=== PATIENT | female | born 1985 | race African-American/Black ===

== ENCOUNTER 2016-07-14 15:21 | Emergency (ER) | payer MEDICAID ==
[2016-07-14] MEDS ORDERED: ACETAMINOPHEN 325 MG TABLET PO ONE (15:26)
--- NOTE | 2016-07-14 15:27 | ER Document Report ---
ED Medical Screen (RME) - General Stated Complaint: TOR INJURY Mode of Arrival: Ambulatory Information source: Patient Notes: Patient presents to the emergency department with complaints of right third digit toe injury. She reports she was playing around with her fianc and hurt it somehow. She's not sure how. I have greeted and performed a rapid initial assessment of this patient. A comprehensive ED assessment and evaluation of the patient, analysis of test results and completion of the medical decision making process will be conducted by additional ED providers.
[2016-07-14 15:28] VITALS: BP 125/70
--- NOTE | 2016-07-14 16:03 | ER Document Report ---
HPI - HPI Patient complains to provider of: right toe pain Onset: Just prior to arrival Onset/Duration: Sudden Severity: Severe Pain Level: 4 Context: pt presents to the ED with c/o right foot 3rd digit pain. Reports she was goofing around with her fiance and hurt the toe. She is not sure what happened, possibly kicked the back of his shoe. Associated Symptoms: None Exacerbated by: Movement, Walking Relieved by: Denies Similar symptoms previously: No Recently seen / treated by doctor: No - DERM Skin Color: Normal Past Medical History - General Information source: Patient - Social History Smoking Status: Current Every Day Smoker Chew tobacco use (# tins/day): No Frequency of alcohol use: Social Drug Abuse: None Lives with: Family Family History: None Renal/ Medical History: Denies: Hx Peritoneal Dialysis Traumatic Medical History: Reports: Hx Fractures Surgical Hx: Negative Vertical Provider Document - CONSTITUTIONAL Agree With Documented VS: Yes Exam Limitations: No Limitations General Appearance: WD/WN, No Apparent Distress - INFECTION CONTROL TRAVEL OUTSIDE OF THE [place] IN LAST 30 DAYS: No - HEENT HEENT: Atraumatic, Normocephalic - NECK Neck: Supple - RESPIRATORY Respiratory: Breath Sounds Normal O2 Sat by Pulse Oximetry: 100 - CARDIOVASCULAR Cardiovascular: Regular Rate - MUSCULOSKELETAL/EXTREMETIES Musculoskeletal/Extremeties: MAEW, Tender - right foot 3rd digit ttp, brisk cap refill , no obvious deformity - NEURO Level of Consciousness: Awake, Alert, Appropriate Motor/Sensory: No Motor Deficit - DERM Integumentary: Warm, Dry Course - Vital Signs Vital signs: Temp Pulse Resp BP Pulse Ox 98.2 F 80 18 125/70 100 07/14/16 15:27 07/14/16 15:27 07/14/16 15:27 07/14/16 15:27 07/14/16 15:27 - Diagnostic Test Radiology reviewed: Image reviewed, Reports reviewed - IMPRESSION: Spiral fracture proximal phalanx 3rd digit Procedures - Immobilization Right 3rd digit Pre-Proc Neuro Vasc Exam: Normal Immobilizer type: Post-op shoe, Other - rosa tape Performed by: Other - academic administrator Discharge - Discharge Clinical Impression: spiral fracture right foot third digit, Elevated blood pressure reading Toe injury Qualifiers: Encounter type: initial encounter Condition: Stable Disposition: HOME, SELF-CARE Instructions: Fracture ([facility]), Rosa Taping (toes) ([facility]), Use of Over-The- Counter Ibuprofen ([facility]), Post-Op Shoe ([facility]) Additional Instructions: *You have been evaluated for right third digit spiral fracture, elevated blood pressure reading *Maintain the rosa tape and post op shoe for comfort *Rest/Ice/Elevate your toe *Follow up with orthopedics within one week -call for an appointment *Take ibuprofen for comfort *Return to ED for worsening condition, changes, needs Monitor your blood pressure. Your blood pressure was elevated today. This may be because you were anxious, in pain or because you need medication. It is important to follow up with your primary care provider for full evaluation. Forms: Elevated Blood Pressure Referrals: PUMA MIMS MD [Primary Care Provider] - Follow up as needed
== END 2016-07-14 16:12 | disposition home or self-care (01) ==
LOC: ER 15:21
DX: S92.901A Unspecified fracture of right foot, initial encounter for closed fracture (principal); R03.0 Elevated blood-pressure reading, without diagnosis of hypertension; M79.674 Pain in right toe(s); F17.200 Nicotine dependence, unspecified, uncomplicated; X58.XXXA Exposure to other specified factors, initial encounter
CPT/HCPCS: 99283; 73630; J3490

== ENCOUNTER 2017-01-11 19:55 | Emergency (ER) | payer MEDICAID ==
[2017-01-11 20:26] LABS: APPEARANCE,URINE CLEAR; BILIRUBIN,URINE NEGATIVE (NEGATIVE); GLUCOSE, URINE NEGATIVE (NEGATIVE); KETONES,URINE NEGATIVE (NEGATIVE); LEUKOCYTE ESTERASE,URINE NEGATIVE (NEGATIVE); NITRITE,URINE NEGATIVE (NEGATIVE); PROTEIN,URINE NEGATIVE (NEGATIVE); URINE SPECIFIC GRAVITY 1.004; UROBILINOGEN,URINE NEGATIVE mg/dL (<2.0)
[2017-01-11 20:41] LABS: URINE BARBITURATES SCREEN NEGATIVE; URINE METHADONE SCREEN NEGATIVE; URINE OPIATES LOW NEGATIVE; URINE PHENCYCLIDINE SCREEN NEGATIVE
[2017-01-11] MEDS ORDERED: DIAZEPAM 5 MG TABLET PO ONE (20:41)
[2017-01-11] MEDS ORDERED: DIAZEPAM INJ 10 MG/2 ML DISP.SYRIN IV ONE ×2 (20:45→23:43)
--- NOTE | 2017-01-11 20:51 | ER Document Report ---
ED General - General Chief Complaint: Overdose Stated Complaint: SUICIDAL IDEATION Time Seen by Provider: 01/11/17 20:15 Cannot obtain history due to: Uncooperative, Altered mental status Notes: Patient is a 31-year-old female with a known past medical history who presents after overdosing on Phenergan in a suicide attempt. Patient wrote a suicide note to her children stating that she was killing herself due to multiple issues and apologized. Had some arrival patient has received activated charcoal by EMS. She is agitated, incoherent and unable to provide an additional meaningful history. She is protecting her airway and otherwise appears in no acute distress TRAVEL OUTSIDE OF THE [place] IN LAST 30 DAYS: No - Related Data Allergies/Adverse Reactions: codeine Allergy (Verified 07/14/16 15:27) Past Medical History - General Information source: Emergency Med Personnel Cannot obtain history due to: Uncooperative, Altered mental status - Social History Smoking Status: Unknown if Ever Smoked Family History: Reviewed & Not Pertinent Renal/ Medical History: Denies: Hx Peritoneal Dialysis Traumatic Medical History: Reports: Hx Fractures Review of Systems - Review of Systems -: Yes ROS unobtainable due to patient's medical condition Physical Exam - Vital signs Vitals: Temp Pulse Resp BP Pulse Ox 98.2 F 95 16 138/90 H 99 01/11/17 20:03 01/11/17 20:03 01/11/17 20:03 01/11/17 20:03 01/11/17 20:03 Interpretation: Normal Notes: PHYSICAL EXAMINATION: GENERAL: Somewhat agitated but in no acute distress HEAD: Atraumatic, normocephalic. EYES: Pupils equal round and reactive to light, extraocular movements intact, sclera anicteric, conjunctiva are normal. ENT: nares patent, oropharynx clear without exudates. Moist mucous membranes. NECK: Normal range of motion, supple without lymphadenopathy LUNGS: Breath sounds clear to auscultation bilaterally and equal. No wheezes rales or rhonchi. HEART: Regular rate and rhythm without murmurs ABDOMEN: Soft, nontender, normoactive bowel sounds. No guarding, no rebound. No masses appreciated. EXTREMITIES: Normal range of motion, no pitting or edema. No cyanosis. NEUROLOGICAL: No focal neurological deficits. Moves all extremities spontaneously and on command. PSYCH: Agitated, confused, has difficulty forming appropriate thoughts. SKIN: Warm, Dry, normal turgor, no rashes or lesions noted. Course - Re-evaluation Re-evalutation: 01/11/17 20:50 Patient presents with suicidal ideation, somewhat disheveled, garbled thought process, unable to provide meaningful history. She apparently attempted overdose Phenergan prior to arrival taking a total of 30 25 mg tablets. She did receive activated charcoal prior to arrival. She denies any additional coingestions. Will proceed with laboratory evaluation, IVC placement, and reassessment. She denies any acute medical complaints. She does arrive with a suicide note. 01/12/17 01:23 Medical screening labs remain unremarkable. Patient remained somewhat agitated and difficult to redirect. Vitals otherwise within normal limits. She is medically cleared pending psychiatric evaluation - Vital Signs Vital signs: Temp Pulse Resp BP Pulse Ox 98.2 F 95 14 138/90 H 99 01/11/17 20:03 01/11/17 20:03 01/11/17 20:45 01/11/17 20:03 01/11/17 20:03 - Laboratory Result Diagrams: 01/11/17 20:36 01/11/17 20:36 Laboratory results interpreted by me: 01/11/17 01/11/17 20:36 20:36 Hgb 11.3 L Hct 33.4 L RDW 16.5 H Chloride 108 H Salicylates < 1.0 L Acetaminophen < 10 L - EKG Interpretation by Me Additional EKG results interpreted by me: 01/12/17 01:23 Poor quality EKG. Normal sinus rhythm. No ST elevations or depressions. Rate is 84. QTC is 436 Discharge - Discharge Clinical Impression: Suicide attempt Overdose Qualifiers: Encounter type: initial encounter Injury intent: intentional self-harm Qualified Code(s): T50.902A - Poisoning by unspecified drugs, medicaments and biological substances, intentional self-harm, initial encounter Altered mental status Qualifiers: Altered mental status type: disorientation Qualified Code(s): R41.0 - Disorientation, unspecified Condition: Fair Disposition: PSYCH HOSP/UNIT
[2017-01-11 21:03] LABS: ALANINE AMINOTRANSFERASE 25 U/L (9-52); ALBUMIN 4.6 g/dL (3.5-5.0); ALKALINE PHOSPHATASE 54 U/L (38-126); ANION GAP 13 (5-19); ASPARTATE AMINO TRANSFERASE 21 U/L (14-36); BILIRUBIN,DIRECT 0.4 mg/dL (0.0-0.4); BILIRUBIN,TOTAL 0.4 mg/dL (0.2-1.3); BLOOD UREA NITROGEN 8 mg/dL (7-20); CALCIUM 10.2 mg/dL (8.4-10.2); CARBON DIOXIDE 22 mmol/L (22-30); CHLORIDE 108 mmol/L (98-107); CREATININE RESULT 0.88 mg/dL (0.52-1.25); GLUCOSE 90 mg/dL (75-110); MAGNESIUM 2.2 mg/dL (1.6-2.3); SODIUM 143.1 mmol/L (137-145); TOTAL PROTEIN 7.6 g/dL (6.3-8.2)
[2017-01-11 21:05] LABS: ALCOHOL < 10 mg/dL (NONE DETECTED)
[2017-01-11 21:08] LABS: ABSOLUTE BASOPHILS # (AUTO) 0.1 10^3/uL (0.0-0.2); ABSOLUTE EOSINOPHILS # (AUTO) 0.1 10^3/uL (0.0-0.6); ABSOLUTE MONOCYTES (AUTO) 0.5 10^3/uL (0.1-1.4); ABSOLUTE NEUT (AUTO) 3.6 10^3/uL (1.7-8.2); EOSINOPHILS % (AUTO) 1.9 % (0-6); HEMATOCRIT 33.4 % (36.0-47.0); HEMOGLOBIN 11.3 g/dL (12.0-15.5); HGB HCT DIFFERENCE 0.5; LYMPHOCYTES % (AUTO) 40.5 % (13-45); MEAN CORPUSCULAR HEMOGLOBIN 28.7 pg (27.0-33.4); MEAN CORPUSCULAR HGB CONC 33.9 g/dL (32.0-36.0); MEAN CORPUSCULAR VOLUME 85 fl (80-97); MONOCYTES % (AUTO) 7.3 % (3-13); RED BLOOD COUNT 3.94 10^6/uL (3.72-5.28); RED CELL DISTRIBUTION WIDTH 16.5 % (11.5-14.0); SEGMENTED NEUTROPHILS % (AUTO) 49.3 % (42-78); WHITE BLOOD COUNT 7.3 10^3/uL (4.0-10.5)
--- NOTE | 2017-01-11 21:44 | EKG REPORT ---
SEVERITY:- DEFECTIVE ECG - INCOMPLETE ANALYSIS DUE TO MISSING DATA IN PRECORDIAL LEAD(S) SINUS RHYTHM BORDERLINE T ABNORMALITIES, ANT-LAT LEADS : Confirmed by: Mynor Salas MD 11-Jan-2017 21:43:22
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
[2017-01-12] MEDS: CITALOPRAM HYDROBROMIDE 20 MG TABLET PO SCH (12:45)
[2017-01-12] MEDS: BUSPIRONE HCL 10 MG TABLET PO SCH ×2 (12:46→17:50)
--- NOTE | 2017-01-12 15:25 | ER Document Report ---
Doctor's Note Notes: 01/12/17 15:24 Medical rounds: Chart reviewed and interview with patient attempted. Vital signs are normal. Laboratory values are satisfactory. Patient denies any somatic complaints, but is reluctant to answer any further questions. She has been evaluated by the psychosocial team and recommended for continued IVC status. She remains medically stable.
[2017-01-13 07:23] VITALS: BP 118/67
--- NOTE | 2017-01-13 09:38 | ER Document Report ---
Doctor's Note Notes: 01/13/17 09:37 This is a 31-year-old female with a history of depression who presented 2016 after an intentional overdose with Phenergan in the setting of suicidal ideations. The patient's labs and vital signs have been stable.
[2017-01-13] MEDS: CITALOPRAM HYDROBROMIDE 20 MG TABLET PO SCH (10:46)
[2017-01-13] MEDS: BUSPIRONE HCL 10 MG TABLET PO SCH (10:46)
== END 2017-01-13 14:50 ==
LOC: ER 19:55
DX: T42.6X2A Poisoning by other antiepileptic and sedative-hypnotic drugs, intentional self-harm, initial encounter (principal); F32.9 Major depressive disorder, single episode, unspecified; Z88.5 Allergy status to narcotic agent
CPT/HCPCS: 93005; 99285; 96374; 36415; 80307 ×4; 83735; 85025; 81025; 80053; 81001; 93010; J3360; J3490 ×4

== ENCOUNTER 2017-02-25 16:58 | Emergency (ER) | payer SELFPAY ==
[2017-02-25] MEDS ORDERED: IPRATROPIUM/ALBUTEROL 0.5-2.5 MG/3 ML AMPUL NEB ONE ×2 (17:09→19:09)
[2017-02-25] MEDS ORDERED: MAGNESIUM SULFATE/D5W 1 GM/100 ML RTUPB IV ONE (17:09)
--- NOTE | 2017-02-25 17:29 | RADIOLOGY REPORT (SQ) ---
EXAM DESCRIPTION: CHEST SINGLE VIEW COMPLETED DATE/TIME: 02/25/2017 5:19 pm REASON FOR STUDY: sob COMPARISON: 02/19/2017 EXAM PARAMETERS: NUMBER OF VIEWS: One view. TECHNIQUE: Single frontal radiographic view of the chest acquired. RADIATION DOSE: NA LIMITATIONS: None. FINDINGS: LUNGS AND PLEURA: No opacities, masses or pneumothorax. No pleural effusion. MEDIASTINUM AND HILAR STRUCTURES: No masses. Contour normal. HEART AND VASCULAR STRUCTURES: Heart normal in size. Normal vasculature. BONES: No acute findings. HARDWARE: None in the chest. OTHER: No other significant finding. IMPRESSION: NO ACUTE RADIOGRAPHIC FINDING IN THE CHEST. TECHNICAL DOCUMENTATION: JOB ID: [id number] [employer]- All Rights Reserved
[2017-02-25 18:09] LABS: ABSOLUTE EOSINOPHILS # (AUTO) 0.3 10^3/uL (0.0-0.6); ABSOLUTE LYMPHOCYTES (AUTO) 1.8 10^3/uL (0.5-4.7); ABSOLUTE MONOCYTES (AUTO) 0.5 10^3/uL (0.1-1.4); ABSOLUTE NEUT (AUTO) 4.5 10^3/uL (1.7-8.2); BASOPHILS % (AUTO) 0.2 % (0-2); EOSINOPHILS % (AUTO) 4.7 % (0-6); HEMATOCRIT 33.1 % (36.0-47.0); HEMOGLOBIN 10.6 g/dL (12.0-15.5); HGB HCT DIFFERENCE -1.3; LYMPHOCYTES % (AUTO) 25.3 % (13-45); MEAN CORPUSCULAR HEMOGLOBIN 26.7 pg (27.0-33.4); MEAN CORPUSCULAR HGB CONC 32.1 g/dL (32.0-36.0); MEAN CORPUSCULAR VOLUME 83 fl (80-97); MONOCYTES % (AUTO) 6.3 % (3-13); RED BLOOD COUNT 3.98 10^6/uL (3.72-5.28); RED CELL DISTRIBUTION WIDTH 16.7 % (11.5-14.0); SEGMENTED NEUTROPHILS % (AUTO) 63.5 % (42-78); WHITE BLOOD COUNT 7.2 10^3/uL (4.0-10.5)
[2017-02-25 18:32] LABS: ALANINE AMINOTRANSFERASE 35 U/L (9-52); ALBUMIN 4.4 g/dL (3.5-5.0); ALKALINE PHOSPHATASE 61 U/L (38-126); ANION GAP 14 (5-19); ASPARTATE AMINO TRANSFERASE 35 U/L (14-36); BILIRUBIN,DIRECT 0.3 mg/dL (0.0-0.4); BILIRUBIN,TOTAL 0.5 mg/dL (0.2-1.3); BLOOD UREA NITROGEN 9 mg/dL (7-20); CALCIUM 9.6 mg/dL (8.4-10.2); CARBON DIOXIDE 24 mmol/L (22-30); CHLORIDE 105 mmol/L (98-107); CREATININE RESULT 0.77 mg/dL (0.52-1.25); GLUCOSE 110 mg/dL (75-110); SODIUM 142.9 mmol/L (137-145); TOTAL PROTEIN 7.5 g/dL (6.3-8.2)
[2017-02-25] MEDS ORDERED: ALBUTEROL SULFATE HFA (90 MCG/PUFF) 8 GM MDI (1 MDI/ER DISP) IH PRN (19:10)
--- NOTE | 2017-02-25 19:39 | ER Document Report ---
ED General - General Chief Complaint: Breathing Difficulty Stated Complaint: DIFFICULTY BREATHING Time Seen by Provider: 02/25/17 17:03 Mode of Arrival: Ambulatory Information source: Patient Notes: 19-year-old female brought in by EMS for wheezing and shortness of breath. Patient does have a history of bronchitis with bronchospasm. She states she normally gets flares of this in the fall and spring during the change of seasons. She denies fever. She recently finished a full course of antibiotics. TRAVEL OUTSIDE OF THE [place] IN LAST 30 DAYS: No - HPI Onset: Just prior to arrival Onset/Duration: Sudden Quality of pain: No pain Severity: None Pain Level: Denies Associated symptoms: Shortness of breath. denies: Chills, Fever Exacerbated by: Denies Relieved by: Denies Similar symptoms previously: No Recently seen / treated by doctor: No - Related Data Allergies/Adverse Reactions: codeine Allergy (Verified 02/19/17 15:15) Past Medical History - General Information source: Patient - Social History Smoking Status: Current Every Day Smoker Cigarette use (# per day): Yes - Half a pack a day Chew tobacco use (# tins/day): No Frequency of alcohol use: Occasional Drug Abuse: None Lives with: Other Family History: Reviewed & Not Pertinent Patient has suicidal ideation: No Patient has homicidal ideation: No - Past Medical History Cardiac Medical History: Reports: None Pulmonary Medical History: Reports: Hx Bronchitis EENT Medical History: Reports: None Neurological Medical History: Reports: None Endocrine Medical History: Reports: None Renal/ Medical History: Reports: None. Denies: Hx Peritoneal Dialysis Malignancy Medical History: Reports: None GI Medical History: Reports: None Musculoskeltal Medical History: Reports None Skin Medical History: Reports None Psychiatric Medical History: Reports: Hx Depression Traumatic Medical History: Reports: Hx Fractures Past Surgical History: Reports: Hx Section - 4 - Immunizations Hx Diphtheria, Pertussis, Tetanus Vaccination: No Review of Systems - Review of Systems Constitutional: denies: Chills, Fever EENT: See HPI Cardiovascular: No symptoms reported Respiratory: No symptoms reported Gastrointestinal: No symptoms reported Genitourinary: No symptoms reported Female Genitourinary: No symptoms reported Musculoskeletal: No symptoms reported Skin: No symptoms reported Hematologic/Lymphatic: No symptoms reported Neurological/Psychological: No symptoms reported Physical Exam - Vital signs Vitals: Temp BP 98.6 F 138/66 H 02/25/17 17:40 02/25/17 17:40 Notes: Physical exam: GENERAL: 31-year-old female, alert and oriented 3, acutely wheezing. HEAD: Atraumatic, normocephalic. EYES: Pupils equal round and reactive to light, extraocular movements intact, sclera anicteric, conjunctiva are normal. ENT: TMs normal, nares patent, oropharynx clear without exudates. Moist mucous membranes. NECK: Normal range of motion, supple without obvious mass or JVD. LUNGS: Bilateral wheezing HEART: Regular rate and rhythm without murmurs, rubs or gallops. ABDOMEN: Soft, normoactive bowel sounds. No tenderness to palpation. No guarding, no rebound. No masses appreciated. EXTREMITIES: Normal range of motion, no pitting or edema. No clubbing or cyanosis. NEUROLOGICAL: Cranial nerves II through XII grossly intact. Normal speech, moving all extremities. PSYCH: Normal mood, normal affect. SKIN: Warm, Dry, normal turgor, no rashes or lesions noted. Course - Re-evaluation Re-evalutation: 02/25/17 19:36 Patient treated with nebulizers, IV Solu-Medrol, IV magnesium. On reassessment , she is breathing much better and feels much better. Patient states she feels good enough for discharge. - Vital Signs Vital signs: Temp Pulse Resp BP Pulse Ox 98.6 F 92 20 121/75 98 02/25/17 17:40 02/25/17 19:30 02/25/17 19:30 02/25/17 19:30 02/25/17 19:30 - Laboratory Result Diagrams: 02/25/17 17:50 02/25/17 17:50 Laboratory results interpreted by me: 02/25/17 17:50 Hgb 10.6 L Hct 33.1 L MCH 26.7 L RDW 16.7 H - Diagnostic Test Radiology reviewed: Image reviewed, Reports reviewed Discharge - Discharge Clinical Impression: Bronchitis with bronchospasm Condition: Stable Disposition: HOME, SELF-CARE Instructions: Bronchitis With Bronchospasm (Wheezing) ([facility]) Prescriptions: Albuterol Sulfate [Albuterol Sulfate 2.5mg/3 mL] 1 vial IH Q4 PRN #10 vial PRN Reason: Nebulizer [Nebulizer Machine] 1 each MC ASDIR PRN #1 kit PRN Reason: Prednisone [Deltasone 20 mg Tablet] 3 tab PO DAILY 5 Days tablet Referrals: SOHAIL HAYNES MD [ACTIVE STAFF] - Follow up as needed (Follow-up with a primary care doctor: This is 1 affiliated with the hospital)
[2017-02-25 19:53] VITALS: BP 121/75
== END 2017-02-25 20:02 | disposition home or self-care (01) ==
LOC: ER 16:58
DX: J40 Bronchitis, not specified as acute or chronic (principal); J98.01 Acute bronchospasm; R06.02 Shortness of breath; F17.210 Nicotine dependence, cigarettes, uncomplicated; Z88.5 Allergy status to narcotic agent
CPT/HCPCS: 94640 ×2; 99285; 96365; 36415; 85025; 80053; 71010; J3475; J3490; J7620

== ENCOUNTER 2018-01-17 21:45 | Emergency (ER) | payer SELFPAY ==
[2018-01-18] MEDS ORDERED: ALBUTEROL SULFATE HFA (90 MCG/PUFF) 200 PUFF/8.5 GM MDI IH ONE (01:43)
[2018-01-18] MEDS ORDERED: DEXAMETHASONE 4 MG TABLET PO ONE (01:43)
[2018-01-18] MEDS ORDERED: BENZONATATE 100 MG CAPSULE PO ONE (01:44)
--- NOTE | 2018-01-18 01:45 | ER Document Report ---
ED General - General Chief Complaint: Cough Stated Complaint: SHORTNESS OF BREATH,CHEST PAIN,COUGH Time Seen by Provider: 01/18/18 00:20 Notes: Patient is a 32-year-old female with a past medical history of asthma, current everyday tobacco abuse who presents with 1 week of a persistent cough. She was seen by her general doctor, given an albuterol inhaler without a spacer and states that this has not improved her symptoms. She notes that smoking, taking a deep breath or laughing worsens her symptoms. No known sick contacts. No fever, shortness of breath, sputum production or constitutional symptoms. She states that she has had similar symptoms in the past when she had bronchitis. TRAVEL OUTSIDE OF THE [place] IN LAST 30 DAYS: No - Related Data Allergies/Adverse Reactions: codeine Allergy (Verified 02/19/17 15:15) Past Medical History - General Information source: Patient - Social History Smoking Status: Current Every Day Smoker Cigarette use (# per day): Yes - 1 pack/day Chew tobacco use (# tins/day): No Smoking Education Provided: Yes - Smoking cessation counseling was provided for 4 minutes at the bedside Frequency of alcohol use: None Drug Abuse: None Lives with: Spouse/Significant other Family History: Reviewed & Not Pertinent Patient has suicidal ideation: No Patient has homicidal ideation: No Pulmonary Medical History: Reports: Hx Bronchitis Renal/ Medical History: Denies: Hx Peritoneal Dialysis Psychiatric Medical History: Reports: Hx Bipolar Disorder, Hx Depression Traumatic Medical History: Reports: Hx Fractures Past Surgical History: Reports: Hx Section - 4 - Immunizations Hx Diphtheria, Pertussis, Tetanus Vaccination: No Review of Systems - Review of Systems Notes: Constitutional: Negative for fever. HENT: Negative for sore throat. Eyes: Negative for visual changes. Cardiovascular: Negative for chest pain. Respiratory: Positive for persistent cough Gastrointestinal: Negative for abdominal pain, vomiting or diarrhea. Genitourinary: Negative for dysuria. Musculoskeletal: Negative for back pain. Skin: Negative for rash. Neurological: Negative for headaches, weakness or numbness. 10 point ROS negative except as marked above and in HPI. Physical Exam - Vital signs Vitals: Temp Pulse Resp BP Pulse Ox 98.8 F 105 H 18 133/106 H 99 01/17/18 22:04 01/17/18 22:04 01/17/18 22:04 01/17/18 22:04 01/17/18 22:04 Interpretation: Tachycardic Notes: PHYSICAL EXAMINATION: GENERAL: Well-appearing, well-nourished and in no acute distress. HEAD: Atraumatic, normocephalic. EYES: Pupils equal round and reactive to light, extraocular movements intact, sclera anicteric, conjunctiva are normal. ENT: nares patent, oropharynx clear without exudates. Moist mucous membranes. NECK: Normal range of motion, supple without lymphadenopathy LUNGS: Breath sounds clear to auscultation bilaterally and equal. No wheezes rales or rhonchi. HEART: Regular rate and rhythm without murmurs ABDOMEN: Soft, nontender, normoactive bowel sounds. No guarding, no rebound. No masses appreciated. EXTREMITIES: Normal range of motion, no pitting or edema. No cyanosis. NEUROLOGICAL: No focal neurological deficits. Moves all extremities spontaneously and on command. PSYCH: Normal mood, normal affect. SKIN: Warm, Dry, normal turgor, no rashes or lesions noted. Course - Re-evaluation Re-evalutation: 01/18/18 01:44 Patient presents with a clinical history and exam most consistent with an acute viral bronchitis. Patient is overall well in appearance without tachypnea, hypoxemia, tachycardia, or difficulty with ambulation. Breath sounds are clear bilaterally. No fever. Patient does have additional signs of upper respiratory infection including nasal congestion, sore throat, and sinus pressure. Chest x-ray clear without evidence of pneumonia. The radiologist read this as being possible pulmonary vascular congestion which should not clinically make sense with the patient's presentation. Labs were obtained to further clarify and did not show any evidence of congestive failure. I suspect that the patient does not have pulmonary vascular congestion although could have an atypical pneumonia pattern. Will cover with azithromycin for treatment of a possible atypical community-acquired pneumonia. Will treat with bronchodilators, single dose of dexamethasone, and Tessalon Perles. At this time will discharge with return precautions and follow-up recommendations. Verbal discharge instructions given a the bedside and opportunity for questions given. Medication warnings reviewed. Patient is in agreement with this plan and has verbalized understanding of return precautions and the need for primary care follow-up in the next 24-72 hours. - Vital Signs Vital signs: Temp Pulse Resp BP Pulse Ox 98.8 F 93 16 144/79 H 98 01/17/18 22:04 01/18/18 02:11 01/18/18 02:11 01/18/18 02:11 01/18/18 02:11 - Diagnostic Test Radiology reviewed: Image reviewed, Reports reviewed Radiology results interpreted by me: 01/18/18 01:44 Chest x-ray: No acute infiltrate or pneumothorax Discharge - Discharge Clinical Impression: Bronchitis, Persistent cough Condition: Good Disposition: HOME, SELF-CARE Additional Instructions: You were seen for symptoms most consistent with bronchitis. This can take up to 12 weeks to fully resolve. This is generally due to a viral infection. Please follow-up with your primary doctor in the next 2-3 days. Return if you develop worsening cough, vomiting, fever >100.4, pass out, begin coughing blood, or have any other symptoms that are concerning to you. Please use the medications prescribed today as directed.
--- NOTE | 2018-01-18 01:57 | RADIOLOGY REPORT (SQ) ---
EXAM DESCRIPTION: XR CHEST 2 VIEWS COMPLETED DATE/TME: 01/18/2018 00:20 CLINICAL HISTORY: 32 years Female, cough, sob COMPARISON: 11.6.17 NUMBER OF VIEWS/TECHNIQUE: 1/AP FINDINGS: Adequate lung volume, pulmonary vascular congestion, normal cardiac silhouette, and intact bony thorax. IMPRESSION: Pulmonary vascular congestion.
[2018-01-18 03:37] LABS: ALANINE AMINOTRANSFERASE 31 U/L (9-52); ALBUMIN 4.4 g/dL (3.5-5.0); ALKALINE PHOSPHATASE 60 U/L (38-126); ANION GAP 8 (5-19); ASPARTATE AMINO TRANSFERASE 41 U/L (14-36); BILIRUBIN,DIRECT 0.4 mg/dL (0.0-0.4); BILIRUBIN,TOTAL 0.4 mg/dL (0.2-1.3); BLOOD UREA NITROGEN 6 mg/dL (7-20); CALCIUM 9.7 mg/dL (8.4-10.2); CARBON DIOXIDE 28 mmol/L (22-30); CHLORIDE 105 mmol/L (98-107); GLUCOSE 105 mg/dL (75-110); POTASSIUM 3.4 mmol/L (3.6-5.0); SODIUM 140.6 mmol/L (137-145); TOTAL PROTEIN 7.5 g/dL (6.3-8.2)
[2018-01-18 03:49] LABS: NT PRO BNP 41 pg/mL (<125)
[2018-01-18 03:51] LABS: TROPONIN I < 0.012 ng/mL
[2018-01-18] MEDS ORDERED: AZITHROMYCIN 250 MG TABLET PO ONE (04:01)
[2018-01-18 04:12] VITALS: BP 152/87
--- NOTE | 2018-01-18 20:23 | EKG REPORT ---
SEVERITY:- NORMAL ECG - SINUS RHYTHM : Confirmed by: Emma Miranda MD 18-Jan-2018 20:23:17
== END 2018-01-18 04:14 | disposition home or self-care (01) ==
LOC: ER 21:45
DX: J40 Bronchitis, not specified as acute or chronic (principal); R06.02 Shortness of breath; R07.9 Chest pain, unspecified; F17.210 Nicotine dependence, cigarettes, uncomplicated; Z88.6 Allergy status to analgesic agent
CPT/HCPCS: 93005; 99406; 99284; 36415; 80053; 84484; 83880; 71046; 93010; J3490

== ENCOUNTER 2018-02-02 19:33 | Emergency (ER) | payer SELFPAY ==
[2018-02-02 20:15] VITALS: BP 146/69
[2018-02-02] MEDS ORDERED: IBUPROFEN 600 MG TABLET PO ONE (20:15)
[2018-02-02] MEDS ORDERED: DIPHENHYDRAMINE HCL 50 MG CAPSULE PO ONE (20:15)
[2018-02-02] MEDS ORDERED: FAMOTIDINE 20 MG TABLET PO ONE (20:15)
[2018-02-02] MEDS ORDERED: DEXAMETHASONE SOD PHOS INJ 10 MG/1 ML VIAL IM ONE (20:15)
--- NOTE | 2018-02-02 20:21 | ER Document Report ---
HPI - HPI Patient complains to provider of: Patient complains of painful hives Onset: Other - Off and on for years has been for the last couple days Onset/Duration: Intermittent Quality of pain: Burning Severity: Moderate Pain Level: 3 Context: 32-year-old female presented ED for complaint of painful itchy whelps that moved to different joints and areas of her body. She states she has had these off and on for several years but has been present for the last couple days. She states she is noticed for the last 3 falls that she has had bronchitis and then a couple weeks later she will get these welts. She states she is going to the doctors multiple times and they have told her she needed to watch what she was eating and drinking. She states that someone did some testing one time but they never did find a reason for these welts and swelling. Associated Symptoms: Other - Painful whelps that move from one area to another Exacerbated by: Denies Relieved by: Denies Similar symptoms previously: Yes Recently seen / treated by doctor: No - ROS ROS below otherwise negative: Yes - CONSTITUTIONAL Constitutional: DENIES: Fever, Chills - EENT EENT: DENIES: Sore Throat, Ear Pain, Nasal Drainage-Clear, Nasal Drainage- Purulent, Congestion, Eye problems - NEURO Neurology: DENIES: Headache, Weakness, Vision blurred, Dizzinesss / Vertigo - CARDIOVASCULAR Cardiovascular: DENIES: Chest pain - RESPIRATORY Respiratory: DENIES: Trouble Breathing, Coughing - GASTROINTESTINAL Gastrointestinal: DENIES: Abdominal Pain, Nausea, Patient vomiting, Diarrhea, Constipation, Black / Bloody Stools - URINARY Urinary: DENIES: Dysuria, Urgency, Frequency - REPRODUCTIVE Reproductive: DENIES: :, Postmenopausal, Abnormal bleeding / discharge - MUSCULOSKELETAL Musculoskeletal: REPORTS: Extremity pain - hands/feet painful whelps. DENIES: Back Pain, Neck Pain - DERM Skin Color: Normal Skin Problems: Rash - Urticaria to hands swelling redness, states she had the same to her back earlier pictures of her earlier urticaria Past Medical History - General Information source: Patient - Social History Smoking Status: Current Every Day Smoker Cigarette use (# per day): Yes - States a couple weeks ago she was smoking a pack a day now 1 B&M Chew tobacco use (# tins/day): No Smoking Education Provided: Yes - 4 minutes Frequency of alcohol use: None Drug Abuse: None Lives with: Family Family History: Reviewed & Not Pertinent Patient has suicidal ideation: No Patient has homicidal ideation: No - Past Medical History Cardiac Medical History: Reports: None Pulmonary Medical History: Reports: Hx Bronchitis EENT Medical History: Reports: None Neurological Medical History: Reports: None Endocrine Medical History: Reports: None Renal/ Medical History: Reports: None Malignancy Medical History: Reports: None GI Medical History: Reports: None Musculoskeletal Medical History: Reports Hx Musculoskeletal Trauma Skin Medical History: Reports None Psychiatric Medical History: Reports: Hx Bipolar Disorder, Hx Depression Traumatic Medical History: Reports: Hx Fractures Past Surgical History: Reports: Hx Section - 4 - Immunizations Hx Diphtheria, Pertussis, Tetanus Vaccination: No Vertical Provider Document - CONSTITUTIONAL Agree With Documented VS: Yes Exam Limitations: No Limitations General Appearance: WD/WN, No Apparent Distress - INFECTION CONTROL TRAVEL OUTSIDE OF THE [place] IN LAST 30 DAYS: No - HEENT HEENT: Atraumatic, Normal ENT Exam, Normocephalic, PERRLA - NECK Neck: Normal Inspection, Supple - RESPIRATORY Respiratory: Breath Sounds Normal, No Respiratory Distress - CARDIOVASCULAR Cardiovascular: Regular Rate, Regular Rhythm - GI/ABDOMEN Gastrointestinal: Abdomen Soft, Abdomen Non-Tender, No Organomegaly, Normal Bowel Sounds - BACK Back: Normal Inspection - MUSCULOSKELETAL/EXTREMETIES Musculoskeletal/Extremeties: MAEW, FROM, Tender - Red swollen tender welts to hands and back, - NEURO Level of Consciousness: Awake, Alert, Appropriate Motor/Sensory: No Motor Deficit, No Sensory Deficit - DERM Integumentary: Warm, Dry, Rash - Urticaria Course - Vital Signs Vital signs: Temp Pulse Resp BP Pulse Ox 98.1 F 94 18 146/69 H 99 02/02/18 20:14 02/02/18 20:14 02/02/18 20:14 02/02/18 20:14 02/02/18 20:14 Discharge - Discharge Clinical Impression: Urticaria Condition: Stable Disposition: HOME, SELF-CARE Instructions: Family Physicians / Practices Additional Instructions: ACUTE ALLERGIC REACTION: Your symptoms are due to an allergic reaction. Allergy can cause hives, swelling of the hands, feet, and face, hoarseness, and difficulty swallowing or breathing. It may be due to exposure to medication, animal dander, foods, infection, or insect bites. Medication is a common cause, even when prior use of this same medication caused no problems. Acute treatment may include adrenalin and antihistamines. Usually, the specific allergic agent can't be identified unless repeated episodes occur. Home treatment includes the following: (1) Stop any suspicious medications. This will be discussed with you. (2) Oral antihistamines for the next four to five days. Example, diphenhydramine (Benadryl) every four hours. (3) You may also use cimetidine (Tagamet), ranitidine (Zantac), or famotidine ( Pepcid) every four hours if diphenhydramine is not controlling itching and hives. (4) Avoid aspirin until the hives completely disappear. (5) Avoid hot baths or showers until the hives are completely gone. Call the doctor if faintness, difficulty swallowing, tightness in the chest , or wheezing occurs. STEROID MEDICATION INJECTION: You have been given an injection of medicine of the cortisone/steroid class. This medication is used to control inflammation or allergy. It is often continued as a pill for a short period of time, until the acute process subsides. There are usually no side effects from short-term use of cortisone-like medications. Some persons feel an increased sense of well-being and are not sleepy at bedtime. Long-term use of cortisone medications is best avoided, unless required for a severe condition. If your condition does not remit, or relapses after the course of corticosteroid medication, you should consult your physician. ACID-SUPPRESSING MEDICATION: You have a prescription for medicine which reduces the stomach's secretion of acid. Examples include Zantac, Tagament, and Pepcid. These drugs are often used to allow healing of ulcers or esophagitis. They may be needed to prevent recurrence of ulcers in some patients, or to prevent damage from acid reflux in the esophagus. Take all medication as prescribed, even after the pain is gone. Regular antacids may be added as needed if you have symptoms while taking this medicine. These medications sometimes are prescribed for allergic reactions because they have anti-histaminic effects and relieve the rash and itching of the reaction. There are usually no side effects from this medication. But, in rare cases and particularly in the elderly, serious problems can occur. Contact your doctor if there is fever, rash, hallucinations, confusion, or unusual bruising. Contact your doctor at once if you develop lightheadedness, black or bloody stool, or bloody vomitus. ANTIHISTAMINES: An antihistamine has been given and/or prescribed to control your symptoms. Antihistamines are used for many reasons, including itching, watering eyes, runny nose, allergic swelling, hives, and insect stings. Antihistamines may cause drowsiness, especially with the first dose. Do not operate machinery or drive while under the effects of the medication. Other common side effects include dry mouth and eyes. In older persons, antihistamines can occasionally cause urinary retention, constipation, and trouble focusing the eyes. Do not combine the medication with alcohol, or with any other medication without talking to your doctor. USE OF DIPHENHYDRAMINE: The use of diphenhydramine (Benadryl) has been recommended to control allergic symptoms. The 25 mg strength is available over- the-counter, as well as the elixir. This antihistamine is used for many symptoms. It's useful for itching, watering eyes and nose, allergic swelling, hives, and insect stings. The medication can be repeated four times daily. Age Elixir (12.5 mg/tsp) 25 mg pill 2-3 yr 1/2 tsp 4-8 yr 1 tsp 9-14 yr 2 tsp one tab adult 1-2 tabs Antihistamines may cause drowsiness, especially with the first dose. Do not operate machinery or drive while under the effects of the medication. Do not combine the medication with alcohol, or with any other medication without talking to your doctor. FOLLOW-UP CARE: If you have been referred to a physician for follow-up care, call the physician s office for an appointment as you were instructed or within the next two days. If you experience worsening or a significant change in your symptoms, notify the physician immediately or return to the Emergency Department at any time for re-evaluation. Forms: Elevated Blood Pressure, Smoking Cessation Education
== END 2018-02-02 20:44 | disposition home or self-care (01) ==
LOC: ER 19:33
DX: L50.9 Urticaria, unspecified (principal); F17.210 Nicotine dependence, cigarettes, uncomplicated
CPT/HCPCS: 99406; 99283; 96372; J1100

== ENCOUNTER 2018-05-29 19:52 | Inpatient (IN) | payer SELFPAY ==
[2018-05-29] MEDS ORDERED: IPRATROPIUM/ALBUTEROL 0.5-2.5 MG/3 ML AMPUL NEB ONE ×2 (20:09→20:10)
[2018-05-29] MEDS ORDERED: PREDNISONE 20 MG TABLET PO ONE (20:10)
[2018-05-29] MEDS ORDERED: NORMAL SALINE 1000 ML 1,000 ML IV ONE (20:11)
--- NOTE | 2018-05-29 20:11 | ER Document Report ---
ED General - General Stated Complaint: RESPIRATORY DISTRESS Time Seen by Provider: 05/29/18 20:10 Notes: Patient is a 32-year-old female with a past medical history of asthma, current smoker presents complaining of 5 days of increasing cough and shortness of breath. Patient states that her symptoms started gradually and got progressively worse over that period of time. Has been trying her albuterol inhaler with minimal to no improvement. Nothing worsens her symptoms. States this feels similar to prior asthma exacerbations. She has not had fever or constitutional symptoms. Has not seen her general physician regarding today's concerns. Has never required hospitalization or intubation in the past for her asthma. TRAVEL OUTSIDE OF THE [place] IN LAST 30 DAYS: No - Related Data Allergies/Adverse Reactions: No Known Allergies Allergy (Unverified 02/02/18 19:39) Past Medical History - General Information source: Patient - Social History Smoking Status: Current Every Day Smoker Frequency of alcohol use: None Drug Abuse: None Lives with: Spouse/Significant other Family History: Reviewed & Not Pertinent Pulmonary Medical History: Reports: Hx Bronchitis Renal/ Medical History: Denies: Hx Peritoneal Dialysis Musculoskeletal Medical History: Reports Hx Musculoskeletal Trauma Psychiatric Medical History: Reports: Hx Bipolar Disorder, Hx Depression Traumatic Medical History: Reports: Hx Fractures Past Surgical History: Reports: Hx Section - 4 - Immunizations Hx Diphtheria, Pertussis, Tetanus Vaccination: No Review of Systems - Review of Systems Notes: Constitutional: Negative for fever. HENT: Negative for sore throat. Eyes: Negative for visual changes. Cardiovascular: Negative for chest pain. Respiratory: Positive shortness of breath and cough Gastrointestinal: Negative for abdominal pain, vomiting or diarrhea. Genitourinary: Negative for dysuria. Musculoskeletal: Negative for back pain. Skin: Negative for rash. Neurological: Negative for headaches, weakness or numbness. 10 point ROS negative except as marked above and in HPI. Physical Exam - Vital signs Vitals: Temp Pulse Resp BP Pulse Ox 98.7 F 120 H 24 H 146/65 H 96 05/29/18 20:00 05/29/18 20:00 05/29/18 20:00 05/29/18 20:00 05/29/18 20:00 Interpretation: Hypertensive, Tachycardic, Tachypneic Notes: PHYSICAL EXAMINATION: GENERAL: Appears somewhat uncomfortable, moderately labored breathing. HEAD: Atraumatic, normocephalic. EYES: Pupils equal round and reactive to light, extraocular movements intact, sclera anicteric, conjunctiva are normal. ENT: nares patent, oropharynx clear without exudates. Moderately dry mucous membranes. NECK: Normal range of motion, supple without lymphadenopathy LUNGS: Coarse expiratory wheezing in all lung zambrano with moderately diminished breath sounds throughout. Mild tachypnea without retractions. HEART: Regular tachycardia without murmurs ABDOMEN: Soft, nontender, normoactive bowel sounds. No guarding, no rebound. No masses appreciated. EXTREMITIES: Normal range of motion, no pitting or edema. No cyanosis. NEUROLOGICAL: No focal neurological deficits. Moves all extremities spontaneously and on command. PSYCH: Normal mood, normal affect. SKIN: Warm, Dry, normal turgor, no rashes or lesions noted. Course - Re-evaluation Re-evalutation: 05/29/18 20:11 Patient presents with what appears to be consistent with an acute asthma exacerbation. Scattered expiratory wheezing in all lung zambrano with moderately diminished global air movement. Patient is mildly dyspneic on exam but in no significant respiratory distress. She has been started on albuterol and ipratropium nebulizers. The patient has likewise been given oral prednisone. IV magnesium has been initiated. IV fluid likewise initiated. Chest x-ray pending. Will continue to reassess. Saturating 93-94% on room air. 2039-lung exam effectively unchanged. Patient has an ongoing continuous nebulizer. Will continue to monitor closely. 05/29/18 21:36 Unfortunately patient's hypoxia has actually worsened, down to 88% on room air while sitting in bed. Will reinitiate continuous nebulizers. She continues to have moderately elevated work of breathing although remains with only mild respiratory distress. Labs will be initiated. Chest x-ray is clear. Patient has received magnesium, 3 duo nebulizers, and prednisone. Patient will receive 10 mg of continuous albuterol. 05/29/18 22:34 Patient has had significant improvement in her lung exam, no further wheezing or diminished air movement. No longer tachypneic. Removed from segmental oxygen, maintaining saturations of 94-95% on room air. 05/29/18 23:52 Unfortunately patient continues to become hypoxic whenever taken off continuous nebulizers. Currently saturating 89%. Will be placed back on segmental oxygen. I discussed with the hospitalist Dr. Castillo who has accepted the patient for admission. - Vital Signs Vital signs: Temp Pulse Resp BP Pulse Ox 98.7 F 120 H 22 H 146/65 H 93 05/29/18 20:00 05/29/18 20:00 05/29/18 20:15 05/29/18 20:00 05/29/18 20:15 - Laboratory Result Diagrams: 05/29/18 20:03 05/29/18 20:03 Laboratory results interpreted by me: 05/29/18 05/29/18 20:03 20:03 Hgb 11.2 L Hct 33.1 L RDW 16.1 H Eosinophils % 7.0 H BUN 6 L - Diagnostic Test Radiology reviewed: Image reviewed, Reports reviewed Radiology results interpreted by me: 05/29/18 21:37 Chest x-ray: No acute infiltrate or pneumothorax Critical Care Note - Critical Care Note Total time excluding time spent on procedures (mins): 35 Comments: Critical care time spent obtaining history from patient or surrogate, discussions with consultants, development of treatment plan with patient or surrogate, evaluation of patient's response to treatment, examination of patient, ordering and performing treatments and interventions, ordering and review of laboratory studies, re-evaluation of patient's condition, ordering and review of radiographic studies and review of old charts Discharge - Discharge Clinical Impression: Shortness of breath Asthma exacerbation Qualifiers: Asthma severity: moderate Asthma persistence: persistent Qualified Code(s): J45.41 - Moderate persistent asthma with (acute) exacerbation Condition: Fair Disposition: ADMITTED INPATIENT Admitting Provider: Hospitalist Unit Admitted: Telemetry Additional Instructions: You were seen for an asthma exacerbation. Your symptoms improved with treatment here in the emergency department. However, it is very important that you return to the emergency department immediately if you began to have worsening difficulty breathing that does not respond to your normal home nebulizers. You are also being sent home on a five-day course of steroids that you should start taking tomorrow. Please also follow closely with your primary care physician. you should also return to emergency department if you develop fever greater than 101, persistent cough, persistent vomiting, pass out, or any other symptoms that are concerning to you. Prescriptions: Albuterol Sulfate [Proair HFA Inhalation Aerosol 8.5 gm MDI] 2 puff IH Q4H PRN #1 mdi PRN Reason: Prednisone [Deltasone 20 mg Tablet] 2 tab PO DAILY 5 Days tablet
[2018-05-29] MEDS: MAGNESIUM SULFATE/D5W 1 GM/100 ML RTUPB IV SCH ×2 (20:34→22:43)
--- NOTE | 2018-05-29 20:58 | RADIOLOGY REPORT (SQ) ---
EXAM DESCRIPTION: XR CHEST 1 VIEW COMPLETED DATE/TME: 05/29/2018 20:10 CLINICAL HISTORY: 32 years, Female, sob COMPARISON: 02/25/2017 chest NUMBER OF VIEWS: 1 TECHNIQUE: Portable chest LIMITATIONS: None. FINDINGS: The heart size is normal. Lungs are clear. No pneumothorax IMPRESSION: Negative chest copyright 2010 [employer]- All Rights Reserved
[2018-05-29] MEDS ORDERED: ALBUTEROL SULFATE 0.083% NEB 2.5 MG/3 ML AMPUL NEB ONE (21:35)
[2018-05-29 21:45] LABS: ABSOLUTE EOSINOPHILS # (AUTO) 0.6 10^3/uL (0.0-0.6); ABSOLUTE LYMPHOCYTES (AUTO) 2.5 10^3/uL (0.5-4.7); ABSOLUTE MONOCYTES (AUTO) 0.7 10^3/uL (0.1-1.4); ABSOLUTE NEUT (AUTO) 4.5 10^3/uL (1.7-8.2); BASOPHILS % (AUTO) 0.3 % (0-2); HEMATOCRIT 33.1 % (36.0-47.0); HEMOGLOBIN 11.2 g/dL (12.0-15.5); LYMPHOCYTES % (AUTO) 30.2 % (13-45); MEAN CORPUSCULAR HEMOGLOBIN 29.3 pg (27.0-33.4); MEAN CORPUSCULAR HGB CONC 33.9 g/dL (32.0-36.0); MEAN CORPUSCULAR VOLUME 87 fl (80-97); MONOCYTES % (AUTO) 8.1 % (3-13); PLATELET COUNT 400 10^3/uL (150-450); RED BLOOD COUNT 3.82 10^6/uL (3.72-5.28); RED CELL DISTRIBUTION WIDTH 16.1 % (11.5-14.0); SEGMENTED NEUTROPHILS % (AUTO) 54.4 % (42-78); TOTAL CELLS COUNTED % (AUTO) 100 %; WHITE BLOOD COUNT 8.2 10^3/uL (4.0-10.5)
[2018-05-29 21:56] LABS: ANION GAP 12 (5-19); BLOOD UREA NITROGEN 6 mg/dL (7-20); CARBON DIOXIDE 25 mmol/L (22-30); CHLORIDE 105 mmol/L (98-107); GLUCOSE 98 mg/dL (75-110); POTASSIUM 3.7 mmol/L (3.6-5.0); SODIUM 141.7 mmol/L (137-145)
[2018-05-29] MEDS ORDERED: ALBUTEROL SULFATE HFA (90 MCG/PUFF) 200 PUFF/8.5 GM MDI IH ONE (22:34)
[2018-05-30] MEDS ORDERED: ONDANSETRON 4 MG TAB.RAPDIS PO PRN (02:34)
[2018-05-30] MEDS ORDERED: ONDANSETRON HCL INJ/PF 4 MG/2 ML SDV IV PRN (02:34)
[2018-05-30] MEDS ORDERED: MAGNESIUM HYDROXIDE SUSP 30 ML UDCUP PO PRN (02:34)
[2018-05-30] MEDS ORDERED: MAG HYDROX/AL HYDROX/SIMETH SUSP 30 ML UDCUP PO PRN (02:34)
[2018-05-30] MEDS ORDERED: ACETAMINOPHEN 325 MG TABLET PO PRN (02:38)
[2018-05-30] MEDS ORDERED: NICOTINE 21 MG/24 HR PATCH.TD24 TD PRN (02:38)
[2018-05-30] MEDS ORDERED: NALBUPHINE HCL INJ 10 MG/1 ML AMPULE IV PRN (02:38)
[2018-05-30] MEDS ORDERED: LABETALOL HCL INJ 20 MG/4 ML DISP.SYRIN IV PRN (02:38)
[2018-05-30] MEDS ORDERED: METHYLPREDNISOLONE INJ 40 MG/1 ML SDV IV SCH ×2 (03:00→22:00)
[2018-05-30] MEDS ORDERED: METHYLPREDNISOLONE INJ 125 MG/2 ML SDV IV ONE (03:20)
--- NOTE | 2018-05-30 06:29 | PDOC H&P ---
History of Present Illness Admission Date/PCP: 05/29/2018 Patient complains of: Dyspnea History of Present Illness: SUSHIL ROMAN is a 32 year old female who presents the emergency room with a 5- day history of gradually worsening dyspnea and dyspnea on exertion. She admits that for the last 5 days she has had gradually increasing wheezing and shortness of breath with an occasional nonproductive cough which reached the point where she was uncomfortable and felt that her dyspnea was severe therefore requiring her to present to the emergency room. She had used her albuterol inhaler withou t improvement until she ran out of the prescription. She admits numerous previous similar episodes with exacerbations of her asthma/COPD. She has not identified any aggravating or ameliorating factors for her dyspnea and other symptoms. She does admit to being a every day smoker but does not associate this with her symptoms. In the emergency room she was found to have persistent hypoxia when taken off supplemental oxygen and thus the patient was admitted for further evaluation and treatment. Past Medical History Cardiac Medical History: Denies: Coronary Artery Disease, Hypertension Pulmonary Medical History: Reports: Asthma, Bronchitis Denies: Chronic Obstructive Pulmonary Disease (COPD), Intubation, Respiratory Failure, Sleep Apnea EENT Medical History: Denies: Cataracts, Nose - Epistaxis Neurological Medical History: Denies: Multiple Sclerosis, Seizures Endocrine Medical History: Denies: Diabetes Mellitus Type 1, Diabetes Mellitus Type 2 Renal/ Medical History: Denies: Chronic Kidney Disease, Nephrolithiasis Malignancy Medical History: Reports: None GI Medical History: Denies: Cirrhosis, Hepatitis Musculoskeltal Medical History: Denies: Arthritis, Fibromyalgia Skin Medical History: Denies: Eczema, Psoriasis Psychiatric Medical History: Reports: Bipolar Disorder, Depression, Tobacco Dependency Denies: Alcohol Dependency, Substance Abuse Traumatic Medical History: Reports: None Hematology: Denies: Anemia, Bleeding Tendencies Infectious Medical History: Reports: Hepatitis B Past Surgical History Past Surgical History: Reports: Section - X4, Other - Liver biopsy as a child Social History Information Source: Patient Lives with: Family Smoking Status: Current Every Day Smoker Frequency of Alcohol Use: Social Hx Recreational Drug Use: No Drugs: None Hx Prescription Drug Abuse: No - Advance Directive Resuscitation Status: Full Code Surrogate healthcare decision maker:: Dianne Deleon Family History Family History: CAD, COPD, DM, Hypertension, Malignancy Parental Family History Reviewed: Yes Children Family History Reviewed: No Sibling(s) Family History Reviewed.: Yes Medication/Allergy Home Medications: Albuterol Sulfate [Ventolin Hfa] 1 - 2 puff IH Q4 PRN #1 hfa.aer.ad 02/19/17 Cefdinir 300 mg PO BID #14 capsule 02/19/17 Albuterol Sulfate [Albuterol Sulfate 2.5mg/3 mL] 1 vial IH Q4 PRN #10 vial 02/25/17 Nebulizer [Nebulizer Machine] 1 each MC ASDIR PRN #1 kit 02/25/17 Prednisone [Deltasone 20 mg Tablet] 3 tab PO DAILY 5 Days tablet 02/25/17 Azithromycin 250 mg PO DAILY #4 tablet 01/18/18 Albuterol Sulfate [Proair HFA Inhalation Aerosol 8.5 gm MDI] 2 puff IH Q4H PRN #1 mdi 05/29/18 Prednisone [Deltasone 20 mg Tablet] 2 tab PO DAILY 5 Days tablet 05/29/18 Allergies/Adverse Reactions: No Known Allergies Allergy (Unverified 02/02/18 19:39) Review of Systems Constitutional: ABSENT: chills, fever(s) Eyes: ABSENT: visual disturbances, other - Ocular pain Ears: ABSENT: hearing changes, other - Ear pain Nose, Mouth, and Throat: ABSENT: mouth pain, sore throat Cardiovascular: PRESENT: as per HPI, dyspnea on exertion. ABSENT: chest pain, edema, orthropnea, palpitations Respiratory: PRESENT: as per HPI, cough, dyspnea Gastrointestinal: ABSENT: abdominal pain, constipation, diarrhea, nausea, vomiting Genitourinary: ABSENT: dysuria, hematuria Musculoskeletal: ABSENT: back pain, joint swelling Integumentary: ABSENT: pruritus, rash Neurological: ABSENT: confusion, convulsions, memory loss Psychiatric: ABSENT: anxiety, depression Endocrine: ABSENT: cold intolerance, heat intolerance Hematologic/Lymphatic: ABSENT: easy bleeding, easy bruising Physical Exam Vital Signs: Temp Pulse Resp BP Pulse Ox 98.7 F 120 H 22 H 146/65 H 93 05/29/18 20:00 05/29/18 20:00 05/29/18 20:15 05/29/18 20:00 05/29/18 20:15 Intake & Output 05/27/18 05/28/18 05/29/18 23:59 23:59 23:59 Intake Total 100 Balance 100 Weight 81.647 kg General appearance: PRESENT: no acute distress, cooperative Head exam: PRESENT: atraumatic, normocephalic Eye exam: PRESENT: conjunctiva pink, EOMI. ABSENT: scleral icterus Ear exam: PRESENT: normal external ear exam. ABSENT: bleeding, drainage Mouth exam: PRESENT: dry mucosa, neck supple Neck exam: ABSENT: JVD, thyromegaly, tracheal deviation Respiratory exam: PRESENT: decreased breath sounds - Slightly decreased breath sounds throughout all zambrano, prolonged expiratory phas - Mildly prolonged expiratory phase in all zambrano, symmetrical, wheezes - Mild to moderate expiratory wheezes in all zambrano Cardiovascular exam: PRESENT: RRR. ABSENT: clicks, gallop, rubs Pulses: PRESENT: normal radial pulses, normal dorsalis pedis pul Vascular exam: PRESENT: normal capillary refill. ABSENT: pallor GI/Abdominal exam: PRESENT: normal bowel sounds, soft. ABSENT: tenderness Rectal exam: PRESENT: deferred Extremities exam: ABSENT: joint swelling, pedal edema Musculoskeletal exam: PRESENT: full ROM, normal inspection Neurological exam: PRESENT: alert, oriented to person, oriented to place, oriented to time, oriented to situation, CN II-XII grossly intact. ABSENT: motor sensory deficit Psychiatric exam: PRESENT: appropriate affect, normal mood Skin exam: PRESENT: dry, intact, warm. ABSENT: jaundice, rash, urticaria Results Laboratory Results: 05/29/18 20:03 05/29/18 20:03 05/29/18 05/29/18 20:03 20:03 WBC 8.2 RBC 3.82 Hgb 11.2 L Hct 33.1 L MCV 87 MCH 29.3 MCHC 33.9 RDW 16.1 H Plt Count 400 Seg Neutrophils % 54.4 Lymphocytes % 30.2 Monocytes % 8.1 Eosinophils % 7.0 H Basophils % 0.3 Absolute Neutrophils 4.5 Absolute Lymphocytes 2.5 Absolute Monocytes 0.7 Absolute Eosinophils 0.6 Absolute Basophils 0.0 Sodium 141.7 Potassium 3.7 Chloride 105 Carbon Dioxide 25 Anion Gap 12 BUN 6 L Creatinine 0.70 Est GFR ( Amer) > 60 Est GFR (Non-Af Amer) > 60 Glucose 98 Calcium 9.0 Impressions: Chest X-Ray 05/29/18 20:10 IMPRESSION: Negative chest copyright 2010 [employer]- All Rights Reserved Assessment & Plan - Diagnosis (1) Acute exacerbation of COPD with asthma Is this a current diagnosis for this admission?: Yes Plan: Patient be treated with aggressive pulmonary toilet utilizing albuterol, Atrovent, Xopenex and Pulmicort nebulizers. Additionally she will be receiving IV Solu-Medrol and she will also be receiving supplemental oxygen as required. Further supportive and symptomatic cares will be provided as needed. (2) Acute respiratory failure with hypoxia Is this a current diagnosis for this admission?: Yes Plan: Continue supplemental oxygen until patient is improved and no longer requires additional oxygen to maintain adequate O2 saturation with activity. 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 (4) Attention deficit disorder of adult Is this a current diagnosis for this admission?: Yes Plan: Continue current medications (5) Anxiety disorder Qualifiers: Anxiety disorder type: generalized anxiety disorder Qualified Code(s): F41.1 - Generalized anxiety disorder Is this a current diagnosis for this admission?: Yes Plan: Continue current medications. - Time Time Spent: 30 to 50 Minutes Critical Time spent with patient: Less than 15 minutes Smoking Cessation Education: 3 to 10 minutes Medications reviewed and adjusted accordingly: Yes Anticipated discharge: Home - Inpatient Certification Based on my medical assessment, after consideration of the patient's comorbidities, presenting symptoms, or acuity I expect that the services needed warrant INPATIENT care.: Yes I certify that my determination is in accordance with my understanding of Medicare's requirements for reasonable and necessary INPATIENT services [42 CFR 412.3e].: Yes Medical Necessity: Need Close Monitoring Due to Risk of Patient Decompensation, Need for Nebulizer Therapy and Monitoring of Response, Risk of Complication if Not Cared For in Hospital
[2018-05-30] MEDS: LEVALBUTEROL HCL NEB 1.25 MG/3 ML AMPUL NEB SCH ×3 (07:51→23:47)
[2018-05-30] MEDS: IPRATROPIUM BROMIDE 0.02% NEB 0.5 MG/2.5 ML AMPUL NEB SCH ×3 (07:51→23:47)
[2018-05-30] MEDS: BUDESONIDE NEB 0.5 MG/2 ML AMPUL NEB SCH ×2 (07:51→21:17)
[2018-05-30] MEDS ORDERED: FONDAPARINUX SODIUM INJ 2.5 MG/0.5 ML DISP.SYRIN SUBCUT SCH (08:00)
[2018-05-30] MEDS: FAMOTIDINE 20 MG TABLET PO SCH ×2 (11:33→21:35)
[2018-05-30] MEDS: METHYLPREDNISOLONE INJ 40 MG/1 ML SDV IV SCH ×2 (11:33→14:29)
[2018-05-30] MEDS: DOCUSATE SODIUM 100 MG CAPSULE PO SCH ×2 (11:33→17:01)
--- NOTE | 2018-05-30 13:59 | EKG REPORT ---
SEVERITY:- BORDERLINE ECG - SINUS TACHYCARDIA BORDERLINE T ABNORMALITIES, INFERIOR LEADS LVH : Confirmed by: Khoi Cavanaugh 30-May-2018 13:58:11
--- NOTE | 2018-05-30 15:47 | PDOC PROGRESS REPORT ---
Subjective Progress Note for:: 05/30/18 Subjective:: The patient is a 32-year-old female with a past medical history of asthma, bipolar disorder, tobacco dependency with continuous use who was admitted 05/29/18 for acute respiratory failure with hypoxia secondary to COPD and asthma exacerbation. Patient was seen on morning rounds. She was found resting in bed comfortably on supplemental oxygen 2 L/min. She was noted to be mildly tachypneic (RR 22), tachycardic (115 at rest), and maintaining oxygen saturations of 90-94%. She was noted to be lying supine comfortably, speaking full sentences, without cough. She reports that she is feeling much better than the time of her arrival last night. She reports a 4-5-day prodrome of dyspnea, nonproductive cough, and wheezing unresponsive to her home rescue inhaler. Despite this, she admits to continuing to smoke approximately 1/2 pack/day. She denies fever, chills, chest pain, palpitations, orthopnea, abdominal pain, nausea, vomiting, and diarrhea. She has no new questions or concerns. No concerns per nursing. Reason For Visit: ACUTE EXACERBATION OF ASTHMA/COPD Physical Exam Vital Signs: Temp Pulse Resp BP Pulse Ox 98.7 F 110 H 15 172/89 H 95 05/29/18 20:00 05/30/18 07:51 05/30/18 12:01 05/30/18 12:01 05/30/18 12:01 Intake & Output 05/29/18 05/30/18 05/31/18 06:59 06:59 06:59 Intake Total 1200 Balance 1200 Weight 81.647 kg General appearance: PRESENT: no acute distress, cooperative, obese, well- developed, well-nourished Head exam: PRESENT: atraumatic, normocephalic Eye exam: PRESENT: conjunctiva pink, EOMI, PERRLA. ABSENT: scleral icterus Ear exam: PRESENT: normal external ear exam Mouth exam: PRESENT: moist, tongue midline Neck exam: ABSENT: carotid bruit, JVD, lymphadenopathy, thyromegaly Respiratory exam: PRESENT: clear to auscultation kristine, decreased breath sounds, symmetrical, tachypnea, unlabored, wheezes - Bibasilar. ABSENT: rales, rhonchi Cardiovascular exam: PRESENT: RRR, +S1, +S2, tachycardia. ABSENT: diastolic murmur, rubs, systolic murmur Pulses: PRESENT: normal dorsalis pedis pul Vascular exam: PRESENT: normal capillary refill GI/Abdominal exam: PRESENT: normal bowel sounds, soft. ABSENT: distended, guarding, mass, organolmegaly, rebound, tenderness Rectal exam: PRESENT: deferred Extremities exam: PRESENT: full ROM. ABSENT: calf tenderness, clubbing, pedal edema Neurological exam: PRESENT: alert, awake, oriented to person, oriented to place, oriented to time, oriented to situation, CN II-XII grossly intact. ABSENT: motor sensory deficit Psychiatric exam: PRESENT: appropriate affect, normal mood. ABSENT: homicidal ideation, suicidal ideation Skin exam: PRESENT: dry, intact, warm. ABSENT: cyanosis, rash Results Laboratory Results: 05/29/18 20:03 05/29/18 20:03 05/29/18 05/29/18 20:03 20:03 WBC 8.2 RBC 3.82 Hgb 11.2 L Hct 33.1 L MCV 87 MCH 29.3 MCHC 33.9 RDW 16.1 H Plt Count 400 Seg Neutrophils % 54.4 Lymphocytes % 30.2 Monocytes % 8.1 Eosinophils % 7.0 H Basophils % 0.3 Absolute Neutrophils 4.5 Absolute Lymphocytes 2.5 Absolute Monocytes 0.7 Absolute Eosinophils 0.6 Absolute Basophils 0.0 Sodium 141.7 Potassium 3.7 Chloride 105 Carbon Dioxide 25 Anion Gap 12 BUN 6 L Creatinine 0.70 Est GFR ( Amer) > 60 Est GFR (Non-Af Amer) > 60 Glucose 98 Calcium 9.0 Impressions: Chest X-Ray 05/29/18 20:10 IMPRESSION: Negative chest copyright 2011 [employer]- All Rights Reserved Assessment & Plan - Diagnosis (1) Acute respiratory failure with hypoxia Is this a current diagnosis for this admission?: Yes Plan: The patient is admitted to the medical floor. She was provided supplemental oxygen as needed to maintain saturations >90 percent. Scheduled and as needed nebulizer treatments. Pulmicort nebulizer treatment twice daily. IV Solu-Medrol 40 mg every 8 hours. Start Singulair. Daily peak flow meter, incentive spirometer and flutter valve to bedside. Smoking cessation strongly encouraged. (2) Acute exacerbation of COPD with asthma Is this a current diagnosis for this admission?: Yes Plan: Management as above. (3) Bipolar disorder Is this a current diagnosis for this admission?: Yes Plan: Patient is not currently on medications for treatment of her bipolar disorder. Monitor for exacerbation of systems while on IV steroids. Consider mental health consultation if noted. Supportive care. (4) Tobacco dependence Is this a current diagnosis for this admission?: Yes Plan: Smoking cessation is strongly encouraged. Nicotine replacement therapies are provided. (5) Anemia Qualifiers: Anemia type: unspecified type Qualified Code(s): D64.9 - Anemia, unspecified Is this a current diagnosis for this admission?: Yes Plan: Chronic; patient is admitted with a hemoglobin of 11.2, appears to be at her baseline. No indications of active bleeding at this time. Multivitamin with iron supplementation. Recommend outpatient followup. - Time Time Spent with patient: 25-34 minutes Medications reviewed and adjusted accordingly: Yes Anticipated discharge: Home Within: within 24 hours
[2018-05-30] MEDS: ALBUTEROL SULFATE 0.083% NEB 2.5 MG/3 ML AMPUL NEB PRN (21:17)
[2018-05-30] MEDS: MONTELUKAST SODIUM 10 MG TABLET PO SCH (21:35)
[2018-05-31 05:52] LABS: HEMATOCRIT 33.1 % (36.0-47.0); HEMOGLOBIN 11.1 g/dL (12.0-15.5); MEAN CORPUSCULAR HEMOGLOBIN 28.9 pg (27.0-33.4); MEAN CORPUSCULAR HGB CONC 33.5 g/dL (32.0-36.0); MEAN CORPUSCULAR VOLUME 86 fl (80-97); PLATELET COUNT 422 10^3/uL (150-450); RED BLOOD COUNT 3.84 10^6/uL (3.72-5.28); RED CELL DISTRIBUTION WIDTH 16.5 % (11.5-14.0); WHITE BLOOD COUNT 14.6 10^3/uL (4.0-10.5)
[2018-05-31 06:15] LABS: ANION GAP 11 (5-19); BLOOD UREA NITROGEN 13 mg/dL (7-20); CALCIUM 10.2 mg/dL (8.4-10.2); CARBON DIOXIDE 24 mmol/L (22-30); CHLORIDE 107 mmol/L (98-107); GLUCOSE 134 mg/dL (75-110); POTASSIUM 4.7 mmol/L (3.6-5.0); SODIUM 142.1 mmol/L (137-145)
[2018-05-31] MEDS: BUDESONIDE NEB 0.5 MG/2 ML AMPUL NEB SCH ×2 (08:45→21:11)
[2018-05-31] MEDS: LEVALBUTEROL HCL NEB 1.25 MG/3 ML AMPUL NEB SCH ×2 (08:45→15:52)
[2018-05-31] MEDS: IPRATROPIUM BROMIDE 0.02% NEB 0.5 MG/2.5 ML AMPUL NEB SCH ×2 (08:45→15:52)
[2018-05-31] MEDS: MULTIVITAMINS W-IRON TABLET, CHEWABLE PO SCH (09:24)
[2018-05-31] MEDS: FAMOTIDINE 20 MG TABLET PO SCH ×2 (09:25→22:11)
[2018-05-31] MEDS: DOCUSATE SODIUM 100 MG CAPSULE PO SCH ×2 (09:25→17:10)
[2018-05-31] MEDS ORDERED: KETOROLAC TROMETHAMINE INJ/PF 30 MG/1 ML SDV IV ONE (11:00)
[2018-05-31] MEDS: FONDAPARINUX SODIUM INJ 2.5 MG/0.5 ML DISP.SYRIN SUBCUT SCH (11:19)
[2018-05-31] MEDS: AZITHROMYCIN 250 MG TABLET PO SCH (11:20)
[2018-05-31] MEDS: GUAIFENESIN/CODEINE PHOS 100-10 MG/ 5 ML UDC PO PRN ×2 (11:20→22:11)
[2018-05-31] MEDS: BENZONATATE 100 MG CAPSULE PO PRN ×2 (11:20→22:11)
--- NOTE | 2018-05-31 15:13 | PDOC PROGRESS REPORT ---
Subjective Progress Note for:: 05/31/18 Subjective:: Feeling better this morning without overnight events. Noted to have persistent coughing fits however with episodes of emesis. Also tachycardia noted on telemetry while at rest. Patient denies fevers, chills, CP, abdominal pain. States that she is able to get OOB to bedside commode. Tolerating PO. Reason For Visit: ACUTE EXACERBATION OF ASTHMA/COPD Physical Exam Vital Signs: Temp Pulse Resp BP Pulse Ox 98.7 F 117 H 16 144/86 H 92 05/31/18 09:12 05/31/18 09:12 05/31/18 09:12 05/31/18 09:12 05/31/18 09:12 Intake & Output 05/30/18 05/31/18 06/01/18 06:59 06:59 06:59 Intake Total 1200 438 Balance 1200 438 Weight 81.647 kg 82.4 kg General appearance: PRESENT: no acute distress, cooperative, other - OCca sionally coughing in room Mouth exam: PRESENT: moist Respiratory exam: PRESENT: unlabored, wheezes, other - Not using supplemental O2 at time of exam Cardiovascular exam: PRESENT: +S1, +S2, tachycardia GI/Abdominal exam: PRESENT: soft. ABSENT: tenderness Musculoskeletal exam: PRESENT: ambulatory Neurological exam: PRESENT: alert, awake, CN II-XII grossly intact Psychiatric exam: PRESENT: appropriate affect Skin exam: PRESENT: dry Results Laboratory Results: 05/31/18 05:33 05/31/18 05:33 05/31/18 05/31/18 05/31/18 05:33 05:33 05:33 WBC 14.6 H RBC 3.84 Hgb 11.1 L Hct 33.1 L MCV 86 MCH 28.9 MCHC 33.5 RDW 16.5 H Plt Count 422 Sodium 142.1 Potassium 4.7 Chloride 107 Carbon Dioxide 24 Anion Gap 11 BUN 13 Creatinine 0.70 Est GFR ( Amer) > 60 Est GFR (Non-Af Amer) > 60 Glucose 134 H Calcium 10.2 Magnesium 2.6 H TSH 0.13 L Impressions: Chest X-Ray 05/29/18 20:10 IMPRESSION: Negative chest copyright 2010 [employer]- All Rights Reserved Assessment & Plan - Diagnosis (1) Acute respiratory failure with hypoxia Is this a current diagnosis for this admission?: Yes Plan: Improved; requiring less supplemental O2. - Received IV steroids * 1 dose, will continue with Prednisone 40mg PO daily * 4 days - Started Azithro 500mg * 3 days for anti-inflammatory effect - Continue breathing treatments - Wean down O2 as tolerated, goal O2 sat >88% (2) Cough Is this a current diagnosis for this admission?: Yes Plan: Persistent coughing - Management per above - Ordered Robitussin and Tessalon Perrles prn (3) Acute exacerbation of COPD with asthma Is this a current diagnosis for this admission?: Yes Plan: Per above - Encouraged to stop smoking (4) Bipolar disorder Is this a current diagnosis for this admission?: Yes Plan: Not currently on medications for treatment of her bipolar disorder. Mood has been appropriate. Will CTM while inpatient. - Time Time Spent with patient: Less than 15 minutes Anticipated discharge: Home Within: within 24 hours
[2018-05-31] MEDS: PREDNISONE 20 MG TABLET PO SCH (17:09)
[2018-05-31] MEDS: ALBUTEROL SULFATE 0.083% NEB 2.5 MG/3 ML AMPUL NEB PRN (21:11)
[2018-05-31] MEDS: MONTELUKAST SODIUM 10 MG TABLET PO SCH (22:11)
[2018-06-01] MEDS: IPRATROPIUM BROMIDE 0.02% NEB 0.5 MG/2.5 ML AMPUL NEB SCH ×2 (00:43→08:34)
[2018-06-01] MEDS: LEVALBUTEROL HCL NEB 1.25 MG/3 ML AMPUL NEB SCH ×2 (00:43→08:34)
[2018-06-01 08:00] VITALS: BP 131/80
[2018-06-01] MEDS: BUDESONIDE NEB 0.5 MG/2 ML AMPUL NEB SCH (08:34)
[2018-06-01] MEDS: DOCUSATE SODIUM 100 MG CAPSULE PO SCH (10:15)
[2018-06-01] MEDS: FONDAPARINUX SODIUM INJ 2.5 MG/0.5 ML DISP.SYRIN SUBCUT SCH (10:20)
[2018-06-01] MEDS: PREDNISONE 20 MG TABLET PO SCH (10:20)
[2018-06-01] MEDS: FAMOTIDINE 20 MG TABLET PO SCH (10:20)
[2018-06-01] MEDS: MULTIVITAMINS W-IRON TABLET, CHEWABLE PO SCH (10:20)
[2018-06-01] MEDS: AZITHROMYCIN 250 MG TABLET PO SCH (10:21)
--- NOTE | 2018-06-01 16:37 | PDOC DISCHARGE SUMMARY ---
General - Admit/Disc Date/PCP Admission Date/Primary Care Provider: 05/30/18 00:25 Discharge Date: 06/01/18 - Discharge Diagnosis (1) Acute respiratory failure with hypoxia Is this a current diagnosis for this admission?: Yes Summary: Improved; off supplemental O2 on 06/01 - Received IV steroids * 1 dose then Prednisone 40mg PO daily * 4 days - Started Azithro 500mg * 3 days for anti-inflammatory effect Outpatient plan - Script for Prednisone 40mg PO daily * 3 days - Script for Azithro 500mg * 1 day (2) Cough Is this a current diagnosis for this admission?: Yes Summary: Improved; script given for Tessalon Perles (15 tabs) (3) Acute exacerbation of COPD with asthma Is this a current diagnosis for this admission?: Yes Summary: Stable (4) Bipolar disorder Is this a current diagnosis for this admission?: Yes Summary: Continue home Latuda at discharge - Additional Information Resuscitation Status: Full Code Discharge Diet: Regular Discharge Activity: Activity As Tolerated, Balance Activity w/Rest, Energy Conservation Prescriptions: Azithromycin [Zithromax 250 mg Tablet] 500 mg PO DAILY 1 Days #1 tablet Benzonatate [Tessalon Perles 100 mg Capsule] 100 mg PO Q8HP PRN #15 capsule PRN Reason: Nicotine [Nicoderm 21 mg/24 Hr Transderm Patch] 1 each TD DAILYP PRN #30 patch.td24 PRN Reason: Prednisone [Deltasone 20 mg Tablet] 40 mg PO DAILY 3 Days #6 tablet Home Medications: Albuterol Sulfate [Proair HFA Inhalation Aerosol 8.5 gm MDI] 2 puff IH Q4HP PRN 05/30/18 Lurasidone HCl [Latuda 40 mg Tablet] 40 mg PO PCSUPPER 05/30/18 Azithromycin [Zithromax 250 mg Tablet] 500 mg PO DAILY 1 Days #1 tablet 06/01/18 Benzonatate [Tessalon Perles 100 mg Capsule] 100 mg PO Q8HP PRN #15 capsule 06/01/18 Nicotine [Nicoderm 21 mg/24 Hr Transderm Patch] 1 each TD DAILYP PRN #30 patch.td24 06/01/18 Prednisone [Deltasone 20 mg Tablet] 40 mg PO DAILY 3 Days #6 tablet 06/01/18 History of Present Illness History of Present Illness: SUSHIL ORMAN is a 32 year old female Hospital Course Hospital Course: SUSHIL ROMAN is a 32 year old female who presents the emergency room with a 5- day history of gradually worsening dyspnea and dyspnea on exertion. She admits that for the last 5 days she has had gradually increasing wheezing and shortness of breath with an occasional nonproductive cough which reached the point where she was uncomfortable and felt that her dyspnea was severe therefore requiring her to present to the emergency room. She had used her albuterol inhaler without improvement until she ran out of the prescription. She admits numerous previous similar episodes with exacerbations of her asthma/COPD. She has not i dentified any aggravating or ameliorating factors for her dyspnea and other symptoms. She does admit to being a every day smoker but does not associate this with her symptoms. In the emergency room she was found to have persistent hypoxia when taken off supplemental oxygen and thus the patient was admitted for further evaluation and treatment. Physical Exam Vital Signs: Temp Pulse Resp BP Pulse Ox 98.3 F 92 18 131/80 H 95 06/01/18 11:42 06/01/18 11:42 06/01/18 11:42 06/01/18 11:42 06/01/18 11:42 Intake & Output 05/31/18 06/01/18 06/02/18 06:59 06:59 06:59 Intake Total 438 1558 Balance 438 1558 Weight 82.4 kg 82.4 kg General appearance: PRESENT: no acute distress, cooperative, well-developed, well-nourished, other - Very pleasant Mouth exam: PRESENT: moist Respiratory exam: PRESENT: unlabored, wheezes - Occasional, scattered. ABSENT: tachypnea Cardiovascular exam: PRESENT: +S1, +S2. ABSENT: tachycardia GI/Abdominal exam: PRESENT: soft. ABSENT: tenderness Extremities exam: ABSENT: +1 edema Neurological exam: PRESENT: alert, awake, CN II-XII grossly intact Psychiatric exam: PRESENT: appropriate affect, normal mood Skin exam: PRESENT: dry, intact Results Laboratory Results: 05/31/18 05:33 05/31/18 05:33 Impressions: Chest X-Ray 05/29/18 20:10 IMPRESSION: Negative chest copyright 2011 [employer]- All Rights Reserved Qualifiers - * PATIENT BEING DISCHARGED WITH ANY OF THE FOLLOWING DIAGNOSIS: No Plan Time Spent: Greater than 30 Minutes
== END 2018-06-01 11:45 | disposition home or self-care (01) | DRG 189 ==
LOC: ER 19:52 → EH 05-30 00:25 → 4S 05-30 15:00
PROVIDERS: ADMIT Emergency Medicine; ATTEND Emergency Medicine
DX: J96.01 Acute respiratory failure with hypoxia (principal); J44.1 Chronic obstructive pulmonary disease with (acute) exacerbation; B18.1 Chronic viral hepatitis B without delta-agent; F41.1 Generalized anxiety disorder; F98.8 Other specified behavioral and emotional disorders with onset usually occurring in childhood and adolescence; F31.9 Bipolar disorder, unspecified; Z79.899 Other long term (current) drug therapy; F17.200 Nicotine dependence, unspecified, uncomplicated
CPT/HCPCS: 36415; 71045; 80048; 83735; 84443; 85025; 85027; 93005; 93010; 94640; 94667; 94799; 96360; 96361; 99291; J1652; J1885; J2300; J2920; J2930; J3475; J3490; J7030; J7512; J7620; S0119

== ENCOUNTER 2018-08-07 15:07 | Emergency (ER) | payer MEDICAID ==
[2018-08-07 15:16] VITALS: BP 128/86
[2018-08-07] MEDS ORDERED: DIPH/PERTUSS(ACELL)/TETANUS VAC/PF 0.5 ML SYR (>=10YO) IM ONE (15:59)
--- NOTE | 2018-08-07 16:04 | ER Document Report ---
HPI - HPI Time Seen by Provider: 08/07/18 15:48 Pain Level: 4 Context: Patient is a 33-year-old female who presents the emergency department with a chief complaint of left foot pain. She stepped on a nail earlier today. She states that she has not been able to walk on it since. Does have some pain that shoots up her left foot up into her left ankle. Last tetanus shot was. Her past medical history includes hepatitis B from when she was an , but is not active. She also has bipolar disorder, which she takes Latuda for. - CONSTITUTIONAL Constitutional: DENIES: Fever, Chills - EENT EENT: DENIES: Sore Throat, Ear Pain, Eye problems - NEURO Neurology: DENIES: Headache, Weakness, Vision blurred, Dizzinesss / Vertigo - CARDIOVASCULAR Cardiovascular: DENIES: Chest pain - RESPIRATORY Respiratory: DENIES: Trouble Breathing, Coughing - GASTROINTESTINAL Gastrointestinal: DENIES: Abdominal Pain, Black / Bloody Stools - URINARY Urinary: DENIES: Dysuria, Urgency, Frequency - REPRODUCTIVE Reproductive: DENIES: : - MUSCULOSKELETAL Musculoskeletal: DENIES: Extremity pain - left foot Past Medical History - Social History Smoking Status: Smoker,Current Status Unk Family History: CAD, COPD, DM, Hypertension, Malignancy Patient has suicidal ideation: No Patient has homicidal ideation: No - Past Medical History Cardiac Medical History: Denies: Hx Coronary Artery Disease, Hx Hypertension Pulmonary Medical History: Reports: Hx Asthma, Hx Bronchitis, Hx COPD Denies: Hx Intubation, Hx Respiratory Failure, Hx Sleep Apnea Neurological Medical History: Denies: Hx Seizures Endocrine Medical History: Denies: Hx Diabetes Mellitus Type 1, Hx Diabetes Mellitus Type 2 Renal/ Medical History: Denies: Hx Peritoneal Dialysis GI Medical History: Denies: Hx Cirrhosis, Hx Hepatitis Musculoskeletal Medical History: Denies Hx Arthritis, Denies Hx Fibromyalgia, Reports Hx Musculoskeletal Trauma Skin Medical History: Denies Hx Eczema, Denies Hx Psoriasis Psychiatric Medical History: Reports: Hx Bipolar Disorder, Hx Depression - anxeity Traumatic Medical History: Reports: Hx Fractures Infectious Medical History: Denies: Hx Hepatitis Past Surgical History: Reports: Hx Section - X4, Other - Liver biopsy as a child - Immunizations Hx Diphtheria, Pertussis, Tetanus Vaccination: No Vertical Provider Document - CONSTITUTIONAL Agree With Documented VS: Yes Exam Limitations: No Limitations General Appearance: No Apparent Distress - INFECTION CONTROL TRAVEL OUTSIDE OF THE [place] IN LAST 30 DAYS: No - HEENT HEENT: Atraumatic, Normocephalic - RESPIRATORY Respiratory: Breath Sounds Normal, No Respiratory Distress - CARDIOVASCULAR Cardiovascular: Regular Rate, Regular Rhythm Pulses: Normal: Radial - MUSCULOSKELETAL/EXTREMETIES Musculoskeletal/Extremeties: Tender - Bottom of left foot, No Edema. negative: FROM - Unable to completely walk on foot due to pain, Eccymosis - NEURO Level of Consciousness: Awake, Alert, Appropriate - DERM Integumentary: Warm, Dry Notes: Puncture wound noted to left plantar forefoot. Course - Re-evaluation Re-evalutation: 08/07/18 There is no acute fracture on x-ray. She will be started on Keflex for prophylactic antibiotics. I do not suspect any life-threatening etiology at this time. Received her tetanus shot here in the emergency department. She is to follow-up with her primary care provider in regard to this visit. There is no cellulitis noted to the area. Verbal discharge instructions were given to the patient. They verbalized understanding. They are stable for discharge. - Vital Signs Vital signs: Temp Pulse Resp BP Pulse Ox 98.1 F 101 H 128/86 H 100 08/07/18 15:12 08/07/18 15:12 08/07/18 15:12 08/07/18 15:12 Procedures - Immobilization Left Foot Immobilizer type: Crutches Performed by: PCT Post-Proc Neuro Vasc Exam: Normal, Unchanged from pre-exam Alignment checked and good: Yes Discharge - Discharge Clinical Impression: Puncture wound of left foot excluding toes without complication Qualifiers: Encounter type: initial encounter Qualified Code(s): S91.332A - Puncture wound without foreign body, left foot, initial encounter Condition: Stable Disposition: HOME, SELF-CARE Instructions: Antibiotic Ointment Protection ([facility]), Prophylactic Antibiotic ([facility]), Soap Cleansing ([facility]), Tetanus Immunization Given ([facility]) Additional Instructions: You were seen today in the emergency department for a puncture wound to your foot. Your x-ray is normal. You have been placed on antibiotics to prevent any infection. He also received a tetanus shot here in the emergency department. Please follow-up with your primary care provider in regards to this visit. Please use your crutches as needed. Wash your foot twice a day and keep your foot clean. If you notice any redness, swelling, develop a fever greater than 100.4 F, or have any symptoms that are worrisome to you, please return to the emergency department. Prescriptions: Cephalexin Monohydrate [Keflex 500 mg Capsule] 500 mg PO Q6H 5 Days #20 capsule
[2018-08-07] MEDS ORDERED: IBUPROFEN 600 MG TABLET PO ONE (16:24)
[2018-08-07] MEDS ORDERED: ACETAMINOPHEN 325 MG TABLET PO ONE (16:25)
--- NOTE | 2018-08-07 16:44 | RADIOLOGY REPORT (SQ) ---
EXAM DESCRIPTION: FOOT LEFT COMPLETE COMPLETED DATE/TIME: 08/07/2018 4:29 pm REASON FOR STUDY: Stepped on nail puncture wound plantar forefoot COMPARISON: None. NUMBER OF VIEWS: Three views. TECHNIQUE: AP, lateral and oblique radiographic images acquired of the left foot. LIMITATIONS: None. FINDINGS: MINERALIZATION: Normal. BONES: No acute fracture or dislocation. No worrisome bone lesions. JOINTS: No effusions. SOFT TISSUES: No soft tissue swelling. No foreign body. OTHER: No other significant finding. IMPRESSION: NEGATIVE STUDY OF THE LEFT FOOT. NO RADIOGRAPHIC EVIDENCE OF ACUTE INJURY. TECHNICAL DOCUMENTATION: JOB ID: [id number] [employer]- All Rights Reserved Reading location - IP/workstation name: [email or web address]
== END 2018-08-07 16:56 | disposition home or self-care (01) ==
LOC: ER 15:07
DX: S91.332A Puncture wound without foreign body, left foot, initial encounter (principal); M79.672 Pain in left foot; M25.572 Pain in left ankle and joints of left foot; W45.0XXA Nail entering through skin, initial encounter; F31.9 Bipolar disorder, unspecified; Z79.899 Other long term (current) drug therapy; F17.200 Nicotine dependence, unspecified, uncomplicated; J44.9 Chronic obstructive pulmonary disease, unspecified
CPT/HCPCS: 99283; 90471; 73630; 90715; J3490 ×2

== ENCOUNTER 2019-01-14 17:39 | Inpatient (IN) | payer SELFPAY ==
[2019-01-14] MEDS ORDERED: PREDNISONE 20 MG TABLET PO ONE (17:57)
[2019-01-14] MEDS ORDERED: IPRATROPIUM/ALBUTEROL 0.5-2.5 MG/3 ML AMPUL NEB ONE (17:57)
--- NOTE | 2019-01-14 18:00 | ER Document Report ---
ED Medical Screen (RME) - General Chief Complaint: Shortness Of Breath Stated Complaint: DIFFICULTY BREATHING Time Seen by Provider: 01/14/19 17:55 Mode of Arrival: Ambulatory Information source: Patient Notes: 33-year-old female presents emergency department with complaints of difficulty breathing for the past 2 days. Reports history of bronchitis COPD. Patient respiratory rate increased positive wheeze. Patient reports she coughs so hard sometimes she vomits afterwards. Denies fever and diarrhea. Patient reports she vapes I have greeted and performed a rapid initial assessment of this patient. A comprehensive ED assessment and evaluation of the patient, analysis of test results and completion of the medical decision making process will be conducted by additional ED providers. Dictation of this chart was performed using voice recognition software; therefore, there may be some unintended grammatical errors. TRAVEL OUTSIDE OF THE [place] IN LAST 30 DAYS: No - Related Data Allergies/Adverse Reactions: peanut Allergy (Verified 01/14/19 17:57) Past Medical History - Social History Chew tobacco use (# tins/day): No Frequency of alcohol use: None Drug Abuse: None - Past Medical History Cardiac Medical History: Denies: Hx Coronary Artery Disease, Hx Hypertension Pulmonary Medical History: Reports: Hx Asthma, Hx Bronchitis, Hx COPD Denies: Hx Intubation, Hx Respiratory Failure, Hx Sleep Apnea Neurological Medical History: Denies: Hx Seizures Endocrine Medical History: Denies: Hx Diabetes Mellitus Type 1, Hx Diabetes Mellitus Type 2 Renal/ Medical History: Denies: Hx Peritoneal Dialysis GI Medical History: Denies: Hx Cirrhosis, Hx Hepatitis Musculoskeltal Medical History: Denies Hx Arthritis, Denies Hx Fibromyalgia, Reports Hx Musculoskeletal Trauma Skin Medical History: Denies Hx Eczema, Denies Hx Psoriasis Psychiatric Medical History: Reports: Hx Bipolar Disorder, Hx Depression - anxeity Traumatic Medical History: Reports: Hx Fractures Infectious Medical History: Denies: Hx Hepatitis Past Surgical History: Reports: Hx Section - X4, Other - Liver biopsy as a child - Immunizations Hx Diphtheria, Pertussis, Tetanus Vaccination: No History of Influenza Vaccine for 01/2017 - 06/2017 Season: No Physical Exam - Vital signs Vitals: Temp Pulse Resp BP Pulse Ox 98.4 F 129 H 24 H 148/67 H 94 01/14/19 17:42 01/14/19 17:42 01/14/19 17:42 01/14/19 17:42 01/14/19 17:42 Course - Vital Signs Vital signs: Temp Pulse Resp BP Pulse Ox 98.4 F 129 H 24 H 148/67 H 94 01/14/19 17:42 01/14/19 17:42 01/14/19 17:42 01/14/19 17:42 01/14/19 17:42
--- NOTE | 2019-01-14 18:28 | RADIOLOGY REPORT (SQ) ---
EXAM DESCRIPTION: CHEST 2 VIEWS COMPLETED DATE/TIME: 01/14/2019 6:14 pm REASON FOR STUDY: cough COMPARISON: 05/29/2018. EXAM PARAMETERS: NUMBER OF VIEWS: two views TECHNIQUE: Digital Frontal and Lateral radiographic views of the chest acquired. RADIATION DOSE: NA LIMITATIONS: none FINDINGS: LUNGS AND PLEURA: No opacities, masses or pneumothorax. No pleural effusion. MEDIASTINUM AND HILAR STRUCTURES: No masses or contour abnormalities. HEART AND VASCULAR STRUCTURES: Heart normal size. No evidence for failure. BONES: No acute findings. HARDWARE: None in the chest. OTHER: No other significant finding. IMPRESSION: NO ACUTE RADIOGRAPHIC FINDING IN THE CHEST. TECHNICAL DOCUMENTATION: JOB ID: [id number] [employer]- All Rights Reserved Reading location - IP/workstation name: [email or web address]
[2019-01-14 18:53] LABS: ABSOLUTE EOSINOPHILS # (AUTO) 0.3 10^3/uL (0.0-0.6); ABSOLUTE LYMPHOCYTES (AUTO) 1.3 10^3/uL (0.5-4.7); ABSOLUTE MONOCYTES (AUTO) 0.6 10^3/uL (0.1-1.4); ABSOLUTE NEUT (AUTO) 5.2 10^3/uL (1.7-8.2); BASOPHILS % (AUTO) 0.4 % (0-2); EOSINOPHILS % (AUTO) 3.6 % (0-6); HEMATOCRIT 32.5 % (36.0-47.0); HEMOGLOBIN 10.5 g/dL (12.0-15.5); LYMPHOCYTES % (AUTO) 17.9 % (13-45); MEAN CORPUSCULAR HEMOGLOBIN 26.3 pg (27.0-33.4); MEAN CORPUSCULAR HGB CONC 32.2 g/dL (32.0-36.0); MEAN CORPUSCULAR VOLUME 82 fl (80-97); MONOCYTES % (AUTO) 8.1 % (3-13); PLATELET COUNT 395 10^3/uL (150-450); RED BLOOD COUNT 3.98 10^6/uL (3.72-5.28); RED CELL DISTRIBUTION WIDTH 17.7 % (11.5-14.0); TOTAL CELLS COUNTED % (AUTO) 100 %; WHITE BLOOD COUNT 7.4 10^3/uL (4.0-10.5)
[2019-01-14] MEDS: ALBUTEROL SULFATE 0.083% NEB 2.5 MG/3 ML AMPUL NEB SCH ×2 (18:57→21:30)
[2019-01-14 19:04] LABS: ALBUMIN 4.8 g/dL (3.5-5.0); ALKALINE PHOSPHATASE 59 U/L (38-126); ANION GAP 12 (5-19); ASPARTATE AMINO TRANSFERASE 25 U/L (14-36); BILIRUBIN,DIRECT 0.1 mg/dL (0.0-0.4); BILIRUBIN,TOTAL 0.2 mg/dL (0.2-1.3); BLOOD UREA NITROGEN 8 mg/dL (7-20); CALCIUM 9.8 mg/dL (8.4-10.2); CARBON DIOXIDE 24 mmol/L (22-30); CHLORIDE 104 mmol/L (98-107); GLUCOSE 112 mg/dL (75-110); POTASSIUM 3.4 mmol/L (3.6-5.0); TOTAL PROTEIN 7.7 g/dL (6.3-8.2)
[2019-01-14] MEDS ORDERED: ALBUTEROL SULFATE 0.083% NEB 2.5 MG/3 ML AMPUL NEB ONE ×2 (21:19→21:43)
--- NOTE | 2019-01-14 21:37 | ER Document Report ---
ED General - General Chief Complaint: Shortness Of Breath Stated Complaint: DIFFICULTY BREATHING Time Seen by Provider: 01/14/19 17:55 Mode of Arrival: Ambulatory TRAVEL OUTSIDE OF THE [place] IN LAST 30 DAYS: No - HPI Notes: Patient presents with 2 days of nonproductive cough states she has a history of bronchitis and COPD. No fevers or chills - Related Data Allergies/Adverse Reactions: peanut Allergy (Verified 01/14/19 17:57) Past Medical History - General Information source: Patient - Social History Smoking Status: Current Every Day Smoker Chew tobacco use (# tins/day): No Frequency of alcohol use: None Drug Abuse: None Family History: CAD, COPD, DM, Hypertension, Malignancy Patient has suicidal ideation: No Patient has homicidal ideation: No - Past Medical History Cardiac Medical History: Denies: Hx Coronary Artery Disease, Hx Hypertension Pulmonary Medical History: Reports: Hx Asthma, Hx Bronchitis, Hx COPD Denies: Hx Intubation, Hx Respiratory Failure, Hx Sleep Apnea Neurological Medical History: Denies: Hx Seizures Endocrine Medical History: Denies: Hx Diabetes Mellitus Type 1, Hx Diabetes Mellitus Type 2 Renal/ Medical History: Denies: Hx Peritoneal Dialysis GI Medical History: Denies: Hx Cirrhosis, Hx Hepatitis Musculoskeletal Medical History: Denies Hx Arthritis, Denies Hx Fibromyalgia, Reports Hx Musculoskeletal Trauma Skin Medical History: Denies Hx Eczema, Denies Hx Psoriasis Psychiatric Medical History: Reports: Hx Bipolar Disorder, Hx Depression - anxeity Traumatic Medical History: Reports: Hx Fractures Infectious Medical History: Denies: Hx Hepatitis Past Surgical History: Reports: Hx Section - X4, Other - Liver biopsy as a child - Immunizations Hx Diphtheria, Pertussis, Tetanus Vaccination: No Review of Systems - Review of Systems Constitutional: No symptoms reported EENT: No symptoms reported Cardiovascular: No symptoms reported Respiratory: See HPI Gastrointestinal: No symptoms reported Genitourinary: No symptoms reported Female Genitourinary: No symptoms reported Musculoskeletal: No symptoms reported Skin: No symptoms reported Hematologic/Lymphatic: No symptoms reported Neurological/Psychological: No symptoms reported Physical Exam - Vital signs Vitals: Temp Pulse Resp BP Pulse Ox 98.4 F 129 H 24 H 148/67 H 94 01/14/19 17:42 01/14/19 17:42 01/14/19 17:42 01/14/19 17:42 01/14/19 17:42 - General General appearance: Appears well, Alert - HEENT Head: Normocephalic, Atraumatic Eyes: Normal Conjunctiva: Normal Cornea: Normal Extraocular movements intact: Yes Pupils: PERRL - Respiratory Respiratory status: No respiratory distress Chest status: Nontender Breath sounds: Normal, Other - My exam was after nebulizer treatment Chest palpation: Normal - Cardiovascular Rhythm: Regular Heart sounds: Normal auscultation Murmur: No - Extremities General upper extremity: Normal inspection, Normal ROM General lower extremity: Normal inspection, Normal ROM - Neurological Neuro grossly intact: Yes Cognition: Normal Orientation: AAOx4 Course - Re-evaluation Re-evalutation: 01/15/19 00:17 Patient found to have bilateral groundglass opacities consistent with atypical pneumonia. Upon further discussion she does vape. Banda provided emergency department will be admitted for further observation 01/15/19 01:13 - Vital Signs Vital signs: Temp Pulse Resp BP Pulse Ox 98.4 F 129 H 28 H 141/94 H 93 01/14/19 17:42 01/14/19 17:42 01/15/19 01:01 01/15/19 01:01 01/15/19 01:01 - Laboratory Result Diagrams: 01/14/19 18:25 01/14/19 18:25 Laboratory results interpreted by me: 01/14/19 01/14/19 01/14/19 18:25 18:25 23:50 Hgb 10.5 L Hct 32.5 L MCH 26.3 L RDW 17.7 H ABG pO2 56.9 L ABG O2 Saturation 90.4 L Potassium 3.4 L Glucose 112 H - Diagnostic Test Radiology reviewed: Reports reviewed Discharge - Discharge Clinical Impression: Wheezing, History of COPD, Atypical pneumonia Condition: Good Disposition: ADMITTED INPATIENT Admitting Provider: Michele (Hospitalist) Unit Admitted: Telemetry
[2019-01-14] MEDS ORDERED: IPRATROPIUM BROMIDE 0.02% NEB 0.5 MG/2.5 ML AMPUL NEB PRN (21:43)
[2019-01-14] MEDS ORDERED: ALBUTEROL SULFATE HFA (90 MCG/PUFF) 8 GM MDI (1 MDI/ER DISP) IH ONE (21:45)
--- NOTE | 2019-01-14 23:33 | RADIOLOGY REPORT (SQ) ---
EXAM DESCRIPTION: [facility]: CT CHEST ANGIOGRAPHY WITHOUT THEN WITH IV CONTRAST CLINICAL HISTORY: 33 years Female; SOB, EVAL PE; CT TECHNIQUE: CT angiogram of the chest with and without intravenous contrast.. MIP reconstructions were performed. All CT scans at this facility use dose modulation, iterative reconstruction, and/or weight based dosing when appropriate to reduce radiation dose to as low as reasonably achievable. COMPARISON: None. FINDINGS: Chest: No filling defects in the central pulmonary arteries. There are patchy bilateral groundglass infiltrates centrally in both lungs, involving both upper lobes and the right middle lobe. No pneumothorax or pleural effusion. Subthreshold bilateral hilar lymph nodes are noted. No mediastinal josue enlargement. Multiple partially calcified gallstones are noted. Visualized portions of upper abdomen are otherwise unremarkable. IMPRESSION: 1. Patchy bilateral primarily central groundglass infiltrates with bilateral reactive hilar adenopathy, suspicious for an acute atypical pneumonia. 2. No CT evidence for pulmonary embolism. 3. Cholelithiasis
[2019-01-14] MEDS ORDERED: LEVOFLOXACIN 750 MG TABLET PO ONE (23:38)
[2019-01-15 00:04] LABS: ARTERIAL BLOOD BASE EXCESS -0.5 mmol/L; ARTERIAL BLOOD H2CO3 1.12 mmol/L (1.05-1.35); ARTERIAL BLOOD HCO3 23.7 mmol/L (20-24); ARTERIAL BLOOD O2 SATURATION 90.4 % (94-98); ARTERIAL BLOOD PCO2 37.2 mmHg (35-45); ARTERIAL BLOOD PH 7.42 (7.35-7.45); ARTERIAL BLOOD PO2 56.9 mmHg (80-100); ARTERIAL BLOOD TOTAL CO2 24.8 mmol/L (21-25)
[2019-01-15 00:05] LABS: ARTERIAL BLOOD FIO2 ROOM AIR
[2019-01-15] MEDS ORDERED: IPRATROPIUM/ALBUTEROL 0.5-2.5 MG/3 ML AMPUL NEB PRN (00:17)
[2019-01-15] MEDS ORDERED: HYDRALAZINE HCL INJ/PF 20 MG/1 ML SDV IV PRN (00:17)
[2019-01-15] MEDS ORDERED: POTASSIUM CHLORIDE 10 MEQ CAPSULE.ER PO ONE (01:00)
[2019-01-15] MEDS: METHYLPREDNISOLONE INJ 125 MG/2 ML SDV IV SCH ×3 (01:22→17:36)
[2019-01-15 01:26] LABS: C-REACTIVE PROTEIN 28.1 mg/L (<10.0)
[2019-01-15] MEDS ORDERED: LURASIDONE HCL 40 MG TABLET PO ONE (01:30)
[2019-01-15] MEDS: IPRATROPIUM/ALBUTEROL 0.5-2.5 MG/3 ML AMPUL NEB SCH ×4 (01:33→20:07)
[2019-01-15] MEDS: ACETAMINOPHEN 325 MG TABLET PO PRN (01:34)
[2019-01-15] MEDS: HEPARIN SOD (PORCINE) 5,000 UNIT/ML 1 ML VIAL SUBCUT SCH ×3 (05:14→22:19)
--- NOTE | 2019-01-15 06:24 | PDOC H&P ---
History of Present Illness Admission Date/PCP: 01/15/19 00:25 Patient complains of: Shortness of breath History of Present Illness: SUSHIL ROMAN is a 33 year old female with a past medical history of anemia, bipolar, bronchitis, tobacco and vape use. She presents with 1 week of nonproductive cough, shortness of breath and fatigue. In the emergency room she is found to have tachypnea, tachycardia, hypoxia with a PCO2 of 57. CT chest reveals patchy bilateral central groundglass infiltrate with bilateral reactive manuel adenopathy. She receives supplemental oxygen, empiric antibiotics, albuterol, Atrovent and stress dose steroids. She denies fever she admits recent change of vape formula 1 week ago. She denies previous episode and otherwise denies recent change in medications. Past Medical History Cardiac Medical History: Denies: Coronary Artery Disease, Hypertension Pulmonary Medical History: Reports: Asthma, Bronchitis, Chronic Obstructive Pulmonary Disease (COPD) Denies: Intubation, Respiratory Failure, Sleep Apnea Neurological Medical History: Denies: Seizures Endocrine Medical History: Denies: Diabetes Mellitus Type 1, Diabetes Mellitus Type 2 GI Medical History: Denies: Cirrhosis, Hepatitis Musculoskeltal Medical History: Denies: Arthritis, Fibromyalgia Skin Medical History: Denies: Eczema, Psoriasis Psychiatric Medical History: Reports: Bipolar Disorder, Depression - anxeity Hematology: Reports: Anemia Denies: Bleeding Tendencies Past Surgical History Past Surgical History: Reports: Section - X4, Other - Liver biopsy as a child Social History Information Source: Patient, Emergency Med Personnel, [facility] Records Smoking Status: Current Every Day Smoker Frequency of Alcohol Use: Social Hx Recreational Drug Use: No Drugs: None Hx Prescription Drug Abuse: No - Advance Directive Resuscitation Status: Full Code Family History Family History: CAD, COPD, DM, Hypertension, Malignancy Parental Family History Reviewed: Yes Children Family History Reviewed: Yes Sibling(s) Family History Reviewed.: Yes Medication/Allergy Home Medications: Albuterol Sulfate [Proair HFA Inhalation Aerosol 8.5 gm MDI] 2 puff IH Q4HP PRN 05/30/18 Lurasidone HCl [Latuda 40 mg Tablet] 40 mg PO PCSUPPER 05/30/18 Azithromycin [Zithromax 250 mg Tablet] 500 mg PO DAILY 1 Days #1 tablet 06/01/18 Benzonatate [Tessalon Perles 100 mg Capsule] 100 mg PO Q8HP PRN #15 capsule 06/01/18 Nicotine [Nicoderm 21 mg/24 Hr Transderm Patch] 1 each TD DAILYP PRN #30 patch.td24 06/01/18 Prednisone [Deltasone 20 mg Tablet] 40 mg PO DAILY 3 Days #6 tablet 06/01/18 Cephalexin Monohydrate [Keflex 500 mg Capsule] 500 mg PO Q6H 5 Days #20 capsule 08/07/18 Levofloxacin [Levaquin 750 mg Tablet] 750 mg PO DAILY #5 tablet 01/14/19 Prednisone [Deltasone 20 mg Tablet] 2 tab PO DAILY 5 Days tablet 01/14/19 Allergies/Adverse Reactions: peanut Allergy (Verified 01/14/19 17:57) Review of Systems Constitutional: ABSENT: chills, fever(s), headache(s), weight gain, weight loss Eyes: ABSENT: visual disturbances Ears: ABSENT: hearing changes Cardiovascular: ABSENT: chest pain, dyspnea on exertion, edema, orthropnea, palpitations Respiratory: PRESENT: as per HPI, cough, dyspnea. ABSENT: hemoptysis, sputum Gastrointestinal: ABSENT: abdominal pain, constipation, diarrhea, hematemesis, hematochezia, nausea, vomiting Genitourinary: ABSENT: dysuria, hematuria Musculoskeletal: ABSENT: joint swelling Integumentary: ABSENT: rash, wounds Neurological: ABSENT: abnormal gait, abnormal speech, confusion, dizziness, focal weakness, syncope Psychiatric: ABSENT: anxiety, depression, homidical ideation, suicidal ideation Endocrine: ABSENT: cold intolerance, heat intolerance, polydipsia, polyuria Hematologic/Lymphatic: ABSENT: easy bleeding, easy bruising Physical Exam Vital Signs: Temp Pulse Resp BP Pulse Ox 98.6 F 129 H 29 H 150/83 H 91 L 01/14/19 23:00 01/14/19 17:42 01/15/19 03:01 01/15/19 04:01 01/15/19 04:01 Intake & Output 01/13/19 01/14/19 01/15/19 11:59 11:59 11:59 Weight 90.2 kg General appearance: PRESENT: cooperative, severe distress, well-developed, well- nourished Head exam: PRESENT: atraumatic Eye exam: PRESENT: conjunctiva pink, EOMI, PERRLA. ABSENT: scleral icterus Ear exam: PRESENT: normal external ear exam Mouth exam: PRESENT: moist, tongue midline Neck exam: ABSENT: carotid bruit, JVD, lymphadenopathy, thyromegaly Respiratory exam: PRESENT: accessory muscle use, crackles, decreased breath sounds, prolonged expiratory phas, retraction, tachypnea Cardiovascular exam: PRESENT: tachycardia Pulses: PRESENT: normal dorsalis pedis pul Vascular exam: PRESENT: normal capillary refill GI/Abdominal exam: PRESENT: normal bowel sounds, soft. ABSENT: distended, guarding, mass, organolmegaly, rebound, tenderness Rectal exam: PRESENT: deferred Extremities exam: PRESENT: full ROM. ABSENT: calf tenderness, clubbing, pedal edema Neurological exam: PRESENT: alert, awake, oriented to person, oriented to place, oriented to time, oriented to situation, CN II-XII grossly intact. ABSENT: motor sensory deficit Psychiatric exam: PRESENT: appropriate affect, normal mood. ABSENT: homicidal ideation, suicidal ideation Skin exam: PRESENT: dry, intact, warm. ABSENT: cyanosis, rash Results Laboratory Results: 01/14/19 18:25 01/14/19 18:25 01/14/19 01/14/19 01/14/19 18:25 18:25 18:25 WBC 7.4 RBC 3.98 Hgb 10.5 L Hct 32.5 L MCV 82 MCH 26.3 L MCHC 32.2 RDW 17.7 H Plt Count 395 Seg Neutrophils % 70.0 Carbonic Acid HCO3/H2CO3 Ratio ABG pH ABG pCO2 ABG pO2 ABG HCO3 ABG O2 Saturation ABG Base Excess FiO2 Sodium 140.0 Potassium 3.4 L Chloride 104 Carbon Dioxide 24 Anion Gap 12 BUN 8 Creatinine 0.92 Est GFR ( Amer) > 60 Glucose 112 H Calcium 9.8 Magnesium Total Bilirubin 0.2 AST 25 Alkaline Phosphatase 59 C-Reactive Protein Total Protein 7.7 Albumin 4.8 Serum HCG, Qual NEGATIVE 01/14/19 01/14/19 18:25 23:50 WBC RBC Hgb Hct MCV MCH MCHC RDW Plt Count Seg Neutrophils % Carbonic Acid 1.12 HCO3/H2CO3 Ratio 21:1 ABG pH 7.42 ABG pCO2 37.2 ABG pO2 56.9 L ABG HCO3 23.7 ABG O2 Saturation 90.4 L ABG Base Excess -0.5 FiO2 ROOM AIR Sodium Potassium Chloride Carbon Dioxide Anion Gap BUN Creatinine Est GFR ( Amer) Glucose Calcium Magnesium 1.8 Total Bilirubin AST Alkaline Phosphatase C-Reactive Protein 28.1 H Total Protein Albumin Serum HCG, Qual 01/15/19 02:49 NT-Pro-B Natriuret Pep 44 Impressions: Chest X-Ray 01/14/19 17:58 IMPRESSION: NO ACUTE RADIOGRAPHIC FINDING IN THE CHEST. Chest/Abdomen CTA 01/14/19 22:02 IMPRESSION: 1. Patchy bilateral primarily central groundglass infiltrates with bilateral reactive hilar adenopathy, suspicious for an acute atypical pneumonia. 2. No CT evidence for pulmonary embolism. 3. Cholelithiasis Assessment and Plan - Diagnosis (1) Atypical pneumonia Is this a current diagnosis for this admission?: Yes Plan: Atypical pneumonia versus vague injury, without fever or leukocytosis, aggressive pulmonary toilet, stress dose steroids, Levaquin initiated, supplemental oxygen, follow-up CBC and culture (2) COPD exacerbation Is this a current diagnosis for this admission?: Yes Plan: Secondary to #1, incentive spirometry, flutter valve, albuterol and Atrovent (3) Anemia Qualifiers: Anemia type: unspecified type Qualified Code(s): D64.9 - Anemia, unspecified Is this a current diagnosis for this admission?: Yes Plan: Follow-up CBC and anemia labs. (4) Bipolar disorder Is this a current diagnosis for this admission?: Yes Plan: Continue Latuda, avoid excessive sedation. - Time Time Spent with patient: 35 or more minutes - Inpatient Certification Medical Necessity: Need Close Monitoring Due to Risk of Patient Decompensation
[2019-01-15 07:27] LABS: ABSOLUTE RETICS # 0.046 10^6/uL (0.028-0.122); RETICULOCYTE COUNT (AUTO) 1.14 % (0.66-2.85)
[2019-01-15 08:13] LABS: IRON(TIBC) 20.6 ug/dL (37-170)
[2019-01-15 08:50] LABS: FERRITIN 7.21 ng/mL (6.2-137.0)
--- NOTE | 2019-01-15 09:16 | EKG REPORT ---
SEVERITY:- ABNORMAL ECG - SINUS TACHYCARDIA FADIA, CONSIDER BIATRIAL ABNORMALITIES NONSPECIFIC T ABNORMALITIES, INFERIOR LEADS : Confirmed by: Khoi Cavanaugh 15-Jan-2019 09:15:25
[2019-01-15 09:20] LABS: FOLATE 6.88 ng/mL (>2.76)
[2019-01-15] MEDS ORDERED: PREDNISONE 20 MG TABLET PO SCH (10:00)
[2019-01-15 10:26] LABS: ARTERIAL BLOOD BASE EXCESS -0.5 mmol/L; ARTERIAL BLOOD FIO2 ROOM AIR; ARTERIAL BLOOD H2CO3 1.13 mmol/L (1.05-1.35); ARTERIAL BLOOD HCO3 23.7 mmol/L (20-24); ARTERIAL BLOOD O2 SATURATION 95.4 % (94-98); ARTERIAL BLOOD PCO2 37.5 mmHg (35-45); ARTERIAL BLOOD PH 7.42 (7.35-7.45); ARTERIAL BLOOD PO2 75.5 mmHg (80-100); ARTERIAL BLOOD TOTAL CO2 24.9 mmol/L (21-25)
[2019-01-15] MEDS: FLUTICASONE NASAL SPRAY 50 MCG/SPRY 120 SPRAY/16 GM NASL SCH ×2 (10:57→22:19)
[2019-01-15] MEDS: NICOTINE 14 MG/24 HR PATCH.TD24 TD SCH (10:57)
[2019-01-15] MEDS ORDERED: LURASIDONE HCL 40 MG TABLET PO SCH ×2 (17:00→22:00)
[2019-01-15] MEDS ORDERED: LEVOFLOXACIN 750 MG/D5W RTU 750 MG/150 ML RTUPB IV SCH (22:00)
[2019-01-16] MEDS: IPRATROPIUM/ALBUTEROL 0.5-2.5 MG/3 ML AMPUL NEB SCH ×3 (02:42→14:15)
[2019-01-16 05:09] LABS: ANION GAP 14 (5-19); BLOOD UREA NITROGEN 15 mg/dL (7-20); CALCIUM 10.7 mg/dL (8.4-10.2); CARBON DIOXIDE 22 mmol/L (22-30); CHLORIDE 104 mmol/L (98-107); GLUCOSE 126 mg/dL (75-110); POTASSIUM 4.4 mmol/L (3.6-5.0)
[2019-01-16 05:31] LABS: HEMATOCRIT 34.1 % (36.0-47.0); HEMOGLOBIN 10.9 g/dL (12.0-15.5); MEAN CORPUSCULAR HEMOGLOBIN 26.2 pg (27.0-33.4); MEAN CORPUSCULAR HGB CONC 32.1 g/dL (32.0-36.0); MEAN CORPUSCULAR VOLUME 82 fl (80-97); PLATELET COUNT 428 10^3/uL (150-450); RED BLOOD COUNT 4.18 10^6/uL (3.72-5.28); RED CELL DISTRIBUTION WIDTH 17.6 % (11.5-14.0)
[2019-01-16 05:35] LABS: WHITE BLOOD COUNT 17.1 10^3/uL (4.0-10.5)
[2019-01-16] MEDS: HEPARIN SOD (PORCINE) 5,000 UNIT/ML 1 ML VIAL SUBCUT SCH (05:56)
[2019-01-16 06:00] LABS: ABSOLUTE LYMPHOCYTES# (MANUAL) 0.5 10^3/uL (0.5-4.7); ABSOLUTE MONOCYTES # (MANUAL) 0.3 10^3/uL (0.1-1.4); ANISOCYTOSIS 1+; BASOPHILS % (MANUAL) 0 % (0-2); EOSINOPHILS % (MANUAL) 1 % (0-6); HYPOCHROMASIA 1+; LYMPHOCYTES % (MANUAL) 3 % (13-45); MONOCYTES % (MANUAL) 2 % (3-13); SEGMENTED NEUTROPHILS % (MAN) 94 % (42-78); TOTAL CELLS COUNTED 100
[2019-01-16] MEDS ORDERED: METHYLPREDNISOLONE INJ 125 MG/2 ML SDV IV SCH (06:00)
[2019-01-16 06:01] LABS: PLATELET COMMENT ADEQUATE
[2019-01-16] MEDS: ACETAMINOPHEN 325 MG TABLET PO PRN (09:25)
[2019-01-16] MEDS: NICOTINE 14 MG/24 HR PATCH.TD24 TD SCH (09:25)
[2019-01-16] MEDS: FLUTICASONE NASAL SPRAY 50 MCG/SPRY 120 SPRAY/16 GM NASL SCH (09:28)
[2019-01-16] MEDS ORDERED: BUSPIRONE HCL 10 MG TABLET PO PRN (09:58)
[2019-01-16 11:45] VITALS: BP 150/66
--- NOTE | 2019-01-16 16:44 | PDOC DISCHARGE SUMMARY ---
Impression - Admit/DC Date/PCP Admission Date/Primary Care Provider: 01/15/19 00:25 Discharge Date: 01/16/19 - Discharge Diagnosis (1) Acute exacerbation of COPD with asthma Is this a current diagnosis for this admission?: Yes (2) Acute respiratory failure with hypoxia Is this a current diagnosis for this admission?: Yes - Additional Information Resuscitation Status: Full Code Discharge Diet: Regular Discharge Activity: Slowly Increase Activity Referrals: [facility] [Outside] - 01/20/19 3:00 pm Prescriptions: Prednisone [Deltasone 20 mg Tablet] 40 mg PO DAILY #10 tablet Albuterol Sulfate [Proventil Hfa] 6.7 gm IH Q4HP PRN #1 [email or web address] PRN Reason: Home Medications: Albuterol Sulfate [Proair HFA Inhalation Aerosol 8.5 gm MDI] 2 puff IH QIDP PRN 01/15/19 Buspirone HCl [Buspar 10 mg Tablet] 10 mg PO TIDP PRN 01/15/19 Lurasidone HCl [Latuda 40 mg Tablet] 40 mg PO WSUPPER 01/15/19 Albuterol Sulfate [Proventil Hfa] 6.7 gm IH Q4HP PRN #1 hfa.aer.ad 01/16/19 Prednisone [Deltasone 20 mg Tablet] 40 mg PO DAILY #10 tablet 01/16/19 History of Present Illiness History of Present Illness: SUSHIL ROMAN is a 33 year old female with a past medical history of anemia, bipolar, bronchitis, tobacco and vape use. She presents with 1 week of nonproductive cough, shortness of breath and fatigue. In the emergency room she is found to have tachypnea, tachycardia, hypoxia with a PCO2 of 57. CT chest reveals patchy bilateral central groundglass infiltrate with bilateral reactive manuel adenopathy. She receives supplemental oxygen, empiric antibiotics, albuterol, Atrovent and stress dose steroids. She denies fever she admits recent change of vape formula 1 week ago. She denies previous episode and otherwise denies recent change in medications. Hospital Course Hospital Course: She responded quickly to steroids and bronchodilators. She had been vaping for a few years along with intermittent cigarette use. On the scan of her chest she had some evidence of some early emphysematous change. I gave her a prescription for some prednisone and an albuterol inhaler and strongly encouraged her to quit smoking and vaping. She verbalized her understanding. Her labs and examination were reassuring and she was discharged in good condition. Physical Exam Vital Signs: Temp Pulse Resp BP Pulse Ox 98.8 F 98 18 150/66 H 98 01/16/19 14:34 01/16/19 14:34 01/16/19 14:34 01/16/19 14:34 01/16/19 14:34 Intake & Output 01/15/19 01/16/19 01/17/19 06:59 06:59 06:59 Intake Total 822 562 Balance 822 562 Weight 90.2 kg 89.8 kg General appearance: PRESENT: no acute distress, cooperative, disheveled, obese Respiratory exam: PRESENT: clear to auscultation kristine, symmetrical, unlabored. ABSENT: accessory muscle use, chest wall tenderness, crackles, prolonged expiratory phas, rhonchi, tachypnea, wheezes Cardiovascular exam: PRESENT: RRR, +S1, +S2 Pulses: PRESENT: normal carotid pulses Vascular exam: PRESENT: normal capillary refill GI/Abdominal exam: PRESENT: normal bowel sounds, soft. ABSENT: distended, guarding, rebound, tenderness Extremities exam: ABSENT: clubbing, pedal edema Musculoskeletal exam: PRESENT: normal inspection. ABSENT: deformity Neurological exam: PRESENT: alert, awake, oriented to person, oriented to place, oriented to time, oriented to situation Psychiatric exam: PRESENT: appropriate affect, normal mood Skin exam: PRESENT: dry, warm Results Laboratory Results: WBC 17.1 10^3/uL (4.0-10.5) H D 01/16/19 03:46 RBC 4.18 10^6/uL (3.72-5.28) 01/16/19 03:46 Hgb 10.9 g/dL (12.0-15.5) L 01/16/19 03:46 Hct 34.1 % (36.0-47.0) L 01/16/19 03:46 MCV 82 fl (80-97) 01/16/19 03:46 MCH 26.2 pg (27.0-33.4) L 01/16/19 03:46 MCHC 32.1 g/dL (32.0-36.0) 01/16/19 03:46 RDW 17.6 % (11.5-14.0) H 01/16/19 03:46 Plt Count 428 10^3/uL (150-450) 01/16/19 03:46 Lymph % (Auto) Not Reportable 01/16/19 03:46 Stephenson % (Auto) Not Reportable 01/16/19 03:46 Eos % (Auto) Not Reportable 01/16/19 03:46 Baso % (Auto) Not Reportable 01/16/19 03:46 Reticulocyte # 0.046 10^6/uL (0.028-0.122) 01/15/19 02:49 Absolute Neuts (auto) Not Reportable 01/16/19 03:46 Absolute Lymphs (auto) Not Reportable 01/16/19 03:46 Absolute Monos (auto) Not Reportable 01/16/19 03:46 Absolute Eos (auto) Not Reportable 01/16/19 03:46 Absolute Basos (auto) Not Reportable 01/16/19 03:46 Total Counted 100 01/16/19 03:46 Seg Neutrophils % Not Reportable 01/16/19 03:46 Seg Neuts % (Manual) 94 % (42-78) H 01/16/19 03:46 Lymphocytes % (Manual) 3 % (13-45) L 01/16/19 03:46 Monocytes % (Manual) 2 % (3-13) L 01/16/19 03:46 Eosinophils % (Manual) 1 % (0-6) 01/16/19 03:46 Basophils % (Manual) 0 % (0-2) 01/16/19 03:46 Abs Neuts (Manual) 16.1 10^3/uL (1.7-8.2) H 01/16/19 03:46 Abs Lymphs (Manual) 0.5 10^3/uL (0.5-4.7) 01/16/19 03:46 Abs Monocytes (Manual) 0.3 10^3/uL (0.1-1.4) 01/16/19 03:46 Absolute Eos (Manual) 0.2 10^3/uL (0.0-0.6) 01/16/19 03:46 Abs Basophils (Manual) 0.0 10^3/uL (0.0-0.2) 01/16/19 03:46 Platelet Comment ADEQUATE 01/16/19 03:46 Hypochromasia 1+ 01/16/19 03:46 Anisocytosis 1+ 01/16/19 03:46 ESR 21 mm/hr (0-20) H 01/14/19 18:25 Retic Count (auto) 1.14 % (0.66-2.85) 01/15/19 02:49 Carbonic Acid 1.13 mmol/L (1.05-1.35) 01/15/19 09:49 HCO3/H2CO3 Ratio 20:1 01/15/19 09:49 ABG pH 7.42 (7.35-7.45) 01/15/19 09:49 ABG pCO2 37.5 mmHg (35-45) 01/15/19 09:49 ABG pO2 75.5 mmHg (80-100) L 01/15/19 09:49 ABG HCO3 23.7 mmol/L (20-24) 01/15/19 09:49 ABG Total CO2 24.9 mmol/L (21-25) 01/15/19 09:49 ABG O2 Saturation 95.4 % (94-98) 01/15/19 09:49 ABG Base Excess -0.5 mmol/L 01/15/19 09:49 FiO2 ROOM AIR 01/15/19 09:49 Sodium 139.6 mmol/L (137-145) 01/16/19 03:46 Potassium 4.4 mmol/L (3.6-5.0) 01/16/19 03:46 Chloride 104 mmol/L (98-107) 01/16/19 03:46 Carbon Dioxide 22 mmol/L (22-30) 01/16/19 03:46 Anion Gap 14 (5-19) 01/16/19 03:46 BUN 15 mg/dL (7-20) 01/16/19 03:46 Creatinine 0.92 mg/dL (0.52-1.25) 01/16/19 03:46 Est GFR ( Amer) > 60 (>60) 01/16/19 03:46 Est GFR (MDRD) Non-Af > 60 (>60) 01/16/19 03:46 Glucose 126 mg/dL (75-110) H 01/16/19 03:46 Calcium 10.7 mg/dL (8.4-10.2) H 01/16/19 03:46 Magnesium 1.8 mg/dL (1.6-2.3) 01/14/19 18:25 Iron 20.6 ug/dL (37-170) L 01/15/19 02:49 TIBC 541 ug/dL (250-450) H 01/15/19 02:49 % Saturation 4 % 01/15/19 02:49 Ferritin 7.21 ng/mL (6.2-137.0) 01/15/19 02:49 Total Bilirubin 0.2 mg/dL (0.2-1.3) 01/14/19 18:25 Direct Bilirubin 0.1 mg/dL (0.0-0.4) 01/14/19 18:25 Neonat Total Bilirubin Not Reportable 01/14/19 18:25 Neonat Direct Bilirubin Not Reportable 01/14/19 18:25 Neonat Indirect Bili Not Reportable 01/14/19 18:25 AST 25 U/L (14-36) 01/14/19 18:25 ALT 17 U/L (<35) 01/14/19 18:25 Alkaline Phosphatase 59 U/L (38-126) 01/14/19 18:25 C-Reactive Protein 28.1 mg/L (<10.0) H 01/14/19 18:25 NT-Pro-B Natriuret Pep 44 pg/mL (<125) 01/15/19 02:49 Total Protein 7.7 g/dL (6.3-8.2) 01/14/19 18:25 Albumin 4.8 g/dL (3.5-5.0) 01/14/19 18:25 Vitamin B12 387.0 pg/mL (239-931) 01/15/19 02:49 Folate 6.88 ng/mL (>2.76) 01/15/19 02:49 Serum HCG, Qual NEGATIVE (NEGATIVE) 01/14/19 18:25 01/15/19 02:49 NT-Pro-B Natriuret Pep 44 Impressions: Chest X-Ray 01/14/19 17:58 IMPRESSION: NO ACUTE RADIOGRAPHIC FINDING IN THE CHEST. Chest/Abdomen CTA 01/14/19 22:02 IMPRESSION: 1. Patchy bilateral primarily central groundglass infiltrates with bilateral reactive hilar adenopathy, suspicious for an acute atypical pneumonia. 2. No CT evidence for pulmonary embolism. 3. Cholelithiasis Plan Time Spent: Greater than 30 Minutes Stroke Is this a Stroke Patient?: No Acute Heart Failure - Is this a Heart Failure Patient?: No
== END 2019-01-16 14:49 | disposition home or self-care (01) | DRG 193 ==
LOC: ER 17:39 → OBSVTOIN 01-15 00:25 → EH 01-15 00:25 → 4W 01-15 10:05 → 4S 01-15 14:20
PROVIDERS: ADMIT Internal Medicine; ATTEND Internal Medicine
DX: J18.9 Pneumonia, unspecified organism (principal); J96.01 Acute respiratory failure with hypoxia; J44.1 Chronic obstructive pulmonary disease with (acute) exacerbation; F31.9 Bipolar disorder, unspecified; F17.210 Nicotine dependence, cigarettes, uncomplicated; Z79.2 Long term (current) use of antibiotics; Z79.51 Long term (current) use of inhaled steroids; Z79.52 Long term (current) use of systemic steroids; Z79.899 Other long term (current) drug therapy
CPT/HCPCS: 36415; 71046; 71275; 80048; 80053; 82607; 82728; 82746; 82803; 83540; 83550; 83735; 83880; 84703; 85025; 85045; 85652; 86140; 93005; 93010; 94640; 94799; 96374; 99285; J1644; J1956; J2930; J3490; J7512; J7620

== ENCOUNTER 2019-02-01 22:23 | Emergency (ER) | payer SELFPAY ==
[2019-02-01] MEDS ORDERED: IPRATROPIUM/ALBUTEROL 0.5-2.5 MG/3 ML AMPUL NEB ONE (23:49)
--- NOTE | 2019-02-01 23:51 | ER Document Report ---
ED Respiratory Problem - General Chief Complaint: Breathing Difficulty Stated Complaint: SHORTNESS OF BREATH Time Seen by Provider: 02/01/19 23:42 Notes: Patient is a 33-year-old female with a history of asthma that comes emergency department for chief complaint of intermittent wheezing and shortness of breath since last night. Patient states she was hospitalized with pneumonia, released on 01/16/2019 after she had pneumonia, she completed redness of the almost 2 weeks ago now, and she states she had not been smoking or vaping until last n ight she did try vaping again. She denies fever/chills, chest pain, vomiting, dizziness, or any other complaints at this time. She also states that she ran out of her albuterol inhaler. Past medical history also includes bipolar disorder on Latuda, she denies any other medical history or medications. TRAVEL OUTSIDE OF THE [place] IN LAST 30 DAYS: No - Related Data Allergies/Adverse Reactions: peanut Allergy (Verified 01/14/19 17:57) Past Medical History - General Information source: Patient - Social History Smoking Status: Former Smoker Frequency of alcohol use: Occasional Drug Abuse: None Lives with: Family Family History: CAD, COPD, DM, Hypertension, Malignancy Patient has suicidal ideation: No Patient has homicidal ideation: No - Past Medical History Cardiac Medical History: Denies: Hx Coronary Artery Disease, Hx Hypertension Pulmonary Medical History: Reports: Hx Asthma, Hx Bronchitis, Hx COPD Denies: Hx Intubation, Hx Respiratory Failure, Hx Sleep Apnea Neurological Medical History: Denies: Hx Seizures Endocrine Medical History: Denies: Hx Diabetes Mellitus Type 1, Hx Diabetes Mellitus Type 2 Renal/ Medical History: Denies: Hx Peritoneal Dialysis GI Medical History: Denies: Hx Cirrhosis, Hx Hepatitis Musculoskeletal Medical History: Denies Hx Arthritis, Denies Hx Fibromyalgia, Reports Hx Musculoskeletal Trauma Skin Medical History: Denies Hx Eczema, Denies Hx Psoriasis Psychiatric Medical History: Reports: Hx Bipolar Disorder, Hx Depression - anxeity Traumatic Medical History: Reports: Hx Fractures Infectious Medical History: Denies: Hx Hepatitis Past Surgical History: Reports: Hx Section - X4, Other - Liver biopsy as a child - Immunizations Hx Diphtheria, Pertussis, Tetanus Vaccination: No Review of Systems - Review of Systems Constitutional: No symptoms reported EENT: No symptoms reported Cardiovascular: No symptoms reported Respiratory: See HPI Gastrointestinal: No symptoms reported Genitourinary: No symptoms reported Female Genitourinary: No symptoms reported Musculoskeletal: No symptoms reported Skin: No symptoms reported Hematologic/Lymphatic: No symptoms reported Neurological/Psychological: No symptoms reported Physical Exam - Vital signs Vitals: Temp Pulse Resp BP Pulse Ox 97.8 F 101 H 20 142/87 H 99 02/01/19 22:42 02/01/19 22:42 02/01/19 22:42 02/01/19 22:42 02/01/19 22:42 - Notes Notes: GENERAL: Alert, interacts well. No acute distress. HEAD: Normocephalic, atraumatic. EYES: Pupils equal, round, and reactive to light. Extraocular movements intact. ENT: Oral mucosa moist, tongue midline. Oropharynx unremarkable. Airway patent. Nares patent, no nasal septal hematoma, TM's intact. NECK: Full range of motion. Supple. Trachea midline. LUNGS: Frequent cough, scattered expiratory wheezes, clear lung sounds otherwise. No respiratory distress. There is some mild generalized tenderness with palpation over the general chest. HEART: Borderline tachycardia, normal rhythm. No murmur ABDOMEN: Soft, non-tender. Non-distended. Bowel sounds present in all 4 quadrants. GENITOURINARY: Deferred EXTREMITIES: Moves all 4 extremities spontaneously. No edema, normal radial and dorsalis pedis pulses bilaterally. No cyanosis. BACK: no cervical, thoracic, lumbar midline tenderness. No saddle anesthesia, normal distal neurovascular exam. Moves all extremities in full range of motion. NEUROLOGICAL: Alert and oriented x3. Normal speech. Cranial nerves II through XII grossly intact. PSYCH: Normal affect, normal mood. SKIN: Warm, dry, normal turgor. No rashes or lesions noted. Course - Re-evaluation Re-evalutation: Patient with expiratory wheezes and frequent coughing on my initial examination. Consistent with an asthma exacerbation. Patient is tachycardic but she is still well-appearing. CBC, chemistry nonspecific, test negative, chest x-ray does not show pneumonia. Potassium is low at 3.1 but patient has also been using her albuterol a lot. She was still given a dose here. Given Solu-Medrol, IV fluids, lidocaine nebulizer as well. After this patient states she feels much improved, she appears much improved. We did ambulate the patient with pulse oximetry and this did not drop below 95%. Patient did this very well without any difficulty. Patient will be treated at home for suspected asthma exacerbation, she does not have lower extremity swelling, she recently had a CTA, she has chest pain with cough, I have low suspicion of pulmonary embolism based on her evaluation. Presentation more consistent with asthma exacerbation. Discussed smoking cessation, patient was again placed on prednisone on request after discussion, provided with albuterol, patient states appreciation and agreement. Stable at time of discharge. - Vital Signs Vital signs: Temp Pulse Resp BP Pulse Ox 97.8 F 101 H 19 144/87 H 96 02/01/19 22:42 02/01/19 22:42 02/02/19 04:00 02/02/19 04:00 02/02/19 04:00 - Laboratory Result Diagrams: 02/01/19 23:40 02/01/19 23:40 Laboratory results interpreted by me: 02/01/19 02/01/19 23:40 23:40 Hgb 10.7 L Hct 32.5 L MCH 26.9 L RDW 19.1 H Potassium 3.1 L Glucose 115 H Discharge - Discharge Clinical Impression: Cough, Wheezing Condition: Stable Disposition: HOME, SELF-CARE Additional Instructions: Your evaluation is reassuring at this time. Avoid smoking or vaping. Take the prednisone as prescribed, take the albuterol as prescribed as needed. Follow-up close with primary care. Come back if you worsen including fever, increased difficulty breathing, or any other concerning or worsening symptoms. Prescriptions: Prednisone [Deltasone 20 mg Tablet] 2 tab PO DAILY 5 Days #10 tablet Albuterol Sulfate [Proair HFA Inhalation Aerosol 8.5 gm MDI] 2 puff IH Q4H PRN #1 mdi PRN Reason:
[2019-02-01 23:54] LABS: ABSOLUTE EOSINOPHILS # (AUTO) 0.4 10^3/uL (0.0-0.6); ABSOLUTE LYMPHOCYTES (AUTO) 1.5 10^3/uL (0.5-4.7); ABSOLUTE MONOCYTES (AUTO) 0.7 10^3/uL (0.1-1.4); ABSOLUTE NEUT (AUTO) 6.9 10^3/uL (1.7-8.2); BASOPHILS % (AUTO) 0.5 % (0-2); EOSINOPHILS % (AUTO) 3.9 % (0-6); HEMATOCRIT 32.5 % (36.0-47.0); HEMOGLOBIN 10.7 g/dL (12.0-15.5); LYMPHOCYTES % (AUTO) 15.6 % (13-45); MEAN CORPUSCULAR HEMOGLOBIN 26.9 pg (27.0-33.4); MEAN CORPUSCULAR HGB CONC 32.9 g/dL (32.0-36.0); MEAN CORPUSCULAR VOLUME 82 fl (80-97); MONOCYTES % (AUTO) 7.9 % (3-13); PLATELET COUNT 364 10^3/uL (150-450); RED BLOOD COUNT 3.97 10^6/uL (3.72-5.28); RED CELL DISTRIBUTION WIDTH 19.1 % (11.5-14.0); SEGMENTED NEUTROPHILS % (AUTO) 72.1 % (42-78); TOTAL CELLS COUNTED % (AUTO) 100 %; WHITE BLOOD COUNT 9.5 10^3/uL (4.0-10.5)
[2019-02-02 00:11] LABS: ALBUMIN 4.1 g/dL (3.5-5.0); ALKALINE PHOSPHATASE 58 U/L (38-126); ANION GAP 11 (5-19); ASPARTATE AMINO TRANSFERASE 30 U/L (14-36); BILIRUBIN,DIRECT 0.1 mg/dL (0.0-0.4); BILIRUBIN,TOTAL 0.3 mg/dL (0.2-1.3); BLOOD UREA NITROGEN 9 mg/dL (7-20); CALCIUM 9.4 mg/dL (8.4-10.2); CARBON DIOXIDE 26 mmol/L (22-30); CHLORIDE 103 mmol/L (98-107); GLUCOSE 115 mg/dL (75-110); POTASSIUM 3.1 mmol/L (3.6-5.0); TOTAL PROTEIN 7.1 g/dL (6.3-8.2)
--- NOTE | 2019-02-02 00:19 | RADIOLOGY REPORT (SQ) ---
XR CHEST 2 VIEWS EXAM DATE: 02/01/2019 12:00 AM CDT HISTORY: SOB, cough. COMPARISON: 01/14/2019 FINDINGS: The heart size is within normal limits. No consolidation, pleural effusion, or pneumothorax is seen. No acute bony findings. IMPRESSION: No evidence of acute cardiopulmonary disease.
[2019-02-02] MEDS ORDERED: POTASSIUM CHLORIDE 10 MEQ CAPSULE.ER PO ONE (01:39)
[2019-02-02] MEDS ORDERED: METHYLPREDNISOLONE INJ 125 MG/2 ML SDV IV ONE (01:39)
[2019-02-02] MEDS ORDERED: NORMAL SALINE 1000 ML 1,000 ML IV ONE (01:39)
[2019-02-02] MEDS ORDERED: LIDOCAINE 1% INJ-PF (10 MG/ML) 30 ML SDV NEB ONE (01:40)
[2019-02-02] MEDS ORDERED: ALBUTEROL SULFATE HFA (90 MCG/PUFF) 8 GM MDI (1 MDI/ER DISP) IH ONE (03:45)
[2019-02-02 04:10] VITALS: BP 144/87
== END 2019-02-02 04:31 | disposition home or self-care (01) ==
LOC: ER 22:23
DX: J44.9 Chronic obstructive pulmonary disease, unspecified (principal); R05 Cough; R06.02 Shortness of breath; F31.9 Bipolar disorder, unspecified; Z79.899 Other long term (current) drug therapy; Z72.0 Tobacco use; Z87.01 Personal history of pneumonia (recurrent); Z91.010 Allergy to peanuts; R00.0 Tachycardia, unspecified
CPT/HCPCS: 94640; 99284; 96361; 96374; 36415; 84703; 85025; 80053; 71046; J3490 ×2; J2930; J7030; J7620

== ENCOUNTER 2019-02-06 19:26 | Emergency (ER) | payer SELFPAY ==
[2019-02-06 19:55] VITALS: BP 151/82
[2019-02-06] MEDS ORDERED: DEXAMETHASONE SOD PHOS INJ 10 MG/1 ML VIAL IM ONE (20:05)
[2019-02-06] MEDS ORDERED: IPRATROPIUM/ALBUTEROL 0.5-2.5 MG/3 ML AMPUL NEB ONE (20:05)
--- NOTE | 2019-02-06 20:05 | ER Document Report ---
ED Medical Screen (RME) - General Chief Complaint: Cough Stated Complaint: COUGH,SHORTNESS OF BREATH Time Seen by Provider: 02/06/19 20:02 Mode of Arrival: Ambulatory Information source: Patient Notes: 33-year-old female presented to ED for complaint of cough cold congestion. She states she gets hot flashes and when she gets hot flashes she feels like her chest tightens up. Patient is alert and oriented respirations regular nonlabored. Patient's temperature was 99 at this time. She states she has a history of COPD. She states she was smoking until a month ago. She states she no longer vape seizure. States she does not use alcohol or illicit drugs. Patient is wheezing. I have greeted and performed a rapid initial assessment of this patient. A comprehensive ED assessment and evaluation of the patient, analysis of test results and completion of medical decision making process will be conducted by an additional ED providers. TRAVEL OUTSIDE OF THE [place] IN LAST 30 DAYS: No - Related Data Allergies/Adverse Reactions: peanut Allergy (Verified 01/14/19 17:57) Past Medical History - Past Medical History Cardiac Medical History: Denies: Hx Coronary Artery Disease, Hx Hypertension Pulmonary Medical History: Reports: Hx Asthma, Hx Bronchitis, Hx COPD Denies: Hx Intubation, Hx Respiratory Failure, Hx Sleep Apnea Neurological Medical History: Denies: Hx Seizures Endocrine Medical History: Denies: Hx Diabetes Mellitus Type 1, Hx Diabetes Mellitus Type 2 Renal/ Medical History: Denies: Hx Peritoneal Dialysis GI Medical History: Denies: Hx Cirrhosis, Hx Hepatitis Musculoskeltal Medical History: Denies Hx Arthritis, Denies Hx Fibromyalgia, Reports Hx Musculoskeletal Trauma Skin Medical History: Denies Hx Eczema, Denies Hx Psoriasis Psychiatric Medical History: Reports: Hx Bipolar Disorder, Hx Depression - anxeity Traumatic Medical History: Reports: Hx Fractures Infectious Medical History: Denies: Hx Hepatitis Past Surgical History: Reports: Hx Section - X4, Other - Liver biopsy as a child - Immunizations Hx Diphtheria, Pertussis, Tetanus Vaccination: No Physical Exam - Vital signs Vitals: Temp Pulse Resp BP Pulse Ox 99.0 F 108 H 16 151/82 H 94 02/06/19 19:51 02/06/19 19:51 02/06/19 19:51 02/06/19 19:51 02/06/19 19:51 Course - Vital Signs Vital signs: Temp Pulse Resp BP Pulse Ox 99.0 F 108 H 16 151/82 H 94 02/06/19 19:51 02/06/19 19:51 02/06/19 19:51 02/06/19 19:51 02/06/19 19:51
[2019-02-06 20:33] LABS: ABSOLUTE BASOPHILS # (AUTO) 0.1 10^3/uL (0.0-0.2); ABSOLUTE EOSINOPHILS # (AUTO) 0.5 10^3/uL (0.0-0.6); ABSOLUTE LYMPHOCYTES (AUTO) 1.5 10^3/uL (0.5-4.7); ABSOLUTE MONOCYTES (AUTO) 0.4 10^3/uL (0.1-1.4); ABSOLUTE NEUT (AUTO) 5.3 10^3/uL (1.7-8.2); BASOPHILS % (AUTO) 0.7 % (0-2); HEMATOCRIT 32.1 % (36.0-47.0); HEMOGLOBIN 10.4 g/dL (12.0-15.5); LYMPHOCYTES % (AUTO) 18.8 % (13-45); MEAN CORPUSCULAR HEMOGLOBIN 26.3 pg (27.0-33.4); MEAN CORPUSCULAR HGB CONC 32.3 g/dL (32.0-36.0); MEAN CORPUSCULAR VOLUME 82 fl (80-97); MONOCYTES % (AUTO) 5.6 % (3-13); PLATELET COUNT 413 10^3/uL (150-450); RED BLOOD COUNT 3.93 10^6/uL (3.72-5.28); RED CELL DISTRIBUTION WIDTH 19.3 % (11.5-14.0); SEGMENTED NEUTROPHILS % (AUTO) 67.9 % (42-78); TOTAL CELLS COUNTED % (AUTO) 100 %; WHITE BLOOD COUNT 7.8 10^3/uL (4.0-10.5)
[2019-02-06] MEDS: ALBUTEROL SULFATE 0.083% NEB 2.5 MG/3 ML AMPUL NEB SCH ×2 (20:42→20:55)
[2019-02-06 20:45] LABS: BLOOD UREA NITROGEN 9 mg/dL (7-20); CALCIUM 9.4 mg/dL (8.4-10.2); CHLORIDE 104 mmol/L (98-107); GLUCOSE 101 mg/dL (75-110)
[2019-02-06 20:46] LABS: ALBUMIN 3.9 g/dL (3.5-5.0); ALKALINE PHOSPHATASE 55 U/L (38-126); ANION GAP 8 (5-19); ASPARTATE AMINO TRANSFERASE 21 U/L (14-36); BILIRUBIN,DIRECT 0.2 mg/dL (0.0-0.4); BILIRUBIN,TOTAL 0.3 mg/dL (0.2-1.3); CARBON DIOXIDE 28 mmol/L (22-30); TOTAL PROTEIN 6.8 g/dL (6.3-8.2)
--- NOTE | 2019-02-06 20:53 | RADIOLOGY REPORT (SQ) ---
EXAM DESCRIPTION: [facility]: XR CHEST 2 VIEWS Views: 2 CLINICAL HISTORY: 33 years Female, cough congestion wheezing COMPARISON: None. FINDINGS: The lungs are clear. No pneumothorax or significant pleural effusion. Cardiomediastinal silhouette is within normal limits. Areolar ornamental metal is again noted bilaterally. Bony structures are unremarkable for age. IMPRESSION: 1. No acute cardiothoracic abnormality.
== END 2019-02-06 23:18 | disposition left against medical advice (07) ==
LOC: ER 19:26
DX: R05 Cough (principal); J44.9 Chronic obstructive pulmonary disease, unspecified; Z87.891 Personal history of nicotine dependence; Z91.010 Allergy to peanuts; Z53.20 Procedure and treatment not carried out because of patient's decision for unspecified reasons
CPT/HCPCS: 99281; 36415; 84703; 80053; 71046; 85025; J1100; J7620

== ENCOUNTER 2019-03-04 14:20 | Emergency (ER) | payer SELFPAY ==
[2019-03-04] MEDS ORDERED: METHYLPREDNISOLONE INJ 125 MG/2 ML SDV IV ONE (14:32)
[2019-03-04] MEDS ORDERED: IPRATROPIUM/ALBUTEROL 0.5-2.5 MG/3 ML AMPUL NEB ONE ×2 (14:32→15:48)
[2019-03-04] MEDS: ALBUTEROL SULFATE 0.083% NEB 2.5 MG/3 ML AMPUL NEB SCH ×2 (14:37→15:29)
--- NOTE | 2019-03-04 14:37 | ER Document Report ---
ED Medical Screen (RME) - General Chief Complaint: Breathing Difficulty Stated Complaint: TROUBLE BREATHING Time Seen by Provider: 03/04/19 14:32 Mode of Arrival: Wheelchair Information source: Patient Notes: This 33 year old female with history of asthma presents with difficulty breathing since yesterday. Could not afford her inhaler. Reports coughing so hard she vomits. Reports chills last night. Has been hospitalized but not intubated due to her asthma. RR tachypneic, hoarse voice, cough, chest tight. I have greeted and performed a rapid initial assessment of this patient. A c omprehensive ED assessment and evaluation of the patient, analysis of test results and completion of the medical decision making process will be conducted by additional ED providers. Dictation of this chart was performed using voice recognition software; therefore, there may be some unintended grammatical errors. TRAVEL OUTSIDE OF THE [place] IN LAST 30 DAYS: No - Related Data Allergies/Adverse Reactions: peanut Allergy (Verified 01/14/19 17:57) Past Medical History - Social History Frequency of alcohol use: None - Past Medical History Cardiac Medical History: Denies: Hx Coronary Artery Disease, Hx Hypertension Pulmonary Medical History: Reports: Hx Asthma, Hx Bronchitis, Hx COPD Denies: Hx Intubation, Hx Respiratory Failure, Hx Sleep Apnea Neurological Medical History: Denies: Hx Seizures Endocrine Medical History: Denies: Hx Diabetes Mellitus Type 1, Hx Diabetes Mellitus Type 2 Renal/ Medical History: Denies: Hx Peritoneal Dialysis GI Medical History: Denies: Hx Cirrhosis, Hx Hepatitis Musculoskeltal Medical History: Denies Hx Arthritis, Denies Hx Fibromyalgia, Reports Hx Musculoskeletal Trauma Skin Medical History: Denies Hx Eczema, Denies Hx Psoriasis Psychiatric Medical History: Reports: Hx Bipolar Disorder, Hx Depression - anxeity Traumatic Medical History: Reports: Hx Fractures Infectious Medical History: Denies: Hx Hepatitis Past Surgical History: Reports: Hx Section - X4, Other - Liver biopsy as a child - Immunizations Hx Diphtheria, Pertussis, Tetanus Vaccination: No Physical Exam - Vital signs Vitals: Temp Pulse Resp BP Pulse Ox 98.8 F 110 H 24 H 138/88 H 96 03/04/19 14:27 03/04/19 14:27 03/04/19 14:27 03/04/19 14:27 03/04/19 14:27 Course - Vital Signs Vital signs: Temp Pulse Resp BP Pulse Ox 98.8 F 110 H 24 H 138/88 H 96 03/04/19 14:27 03/04/19 14:27 03/04/19 14:27 03/04/19 14:27 03/04/19 14:27
--- NOTE | 2019-03-04 15:20 | RADIOLOGY REPORT (SQ) ---
EXAM DESCRIPTION: CHEST SINGLE VIEW COMPLETED DATE/TIME: 03/04/2019 3:11 pm REASON FOR STUDY: diff breathing COMPARISON: 02/06/2019 EXAM PARAMETERS: NUMBER OF VIEWS: One view. TECHNIQUE: Single frontal radiographic view of the chest acquired. RADIATION DOSE: NA LIMITATIONS: None. FINDINGS: LUNGS AND PLEURA: No opacities, masses or pneumothorax. No pleural effusion. MEDIASTINUM AND HILAR STRUCTURES: No masses. Contour normal. HEART AND VASCULAR STRUCTURES: Heart normal in size. Normal vasculature. BONES: No acute findings. HARDWARE: None in the chest. OTHER: No other significant finding. IMPRESSION: NO ACUTE RADIOGRAPHIC FINDING IN THE CHEST. TECHNICAL DOCUMENTATION: JOB ID: [id number] [employer]- All Rights Reserved Reading location - IP/workstation name: [email or web address]
[2019-03-04] MEDS ORDERED: ALBUTEROL SULFATE HFA (90 MCG/PUFF) 8 GM MDI (1 MDI/ER DISP) IH ONE (15:29)
[2019-03-04] MEDS ORDERED: NORMAL SALINE 1000 ML 1,000 ML IV ONE (15:32)
--- NOTE | 2019-03-04 15:33 | ER Document Report ---
ED General - General Chief Complaint: Breathing Difficulty Stated Complaint: TROUBLE BREATHING Time Seen by Provider: 03/04/19 14:32 Primary Care Provider: BRADLEY BRAY MD [ACTIVE STAFF] - Follow up as needed Mode of Arrival: Wheelchair TRAVEL OUTSIDE OF THE [place] IN LAST 30 DAYS: No - HPI Notes: Patient is a 33-year-old female with history of asthma who presents complaining of asthma exacerbation that started yesterday. Patient states that she was also exposed to somebody with bronchitis which she believes flared up her symptoms. Patient states that she has had some nasal congestion and discharge with a dry cough. Patient states that she has had a couple episodes of posttussive emesis yesterday. She does not have an inhaler at home at this time she could not afford the prescription for it. She is otherwise able to eat and drink without difficulty. She is urinating normally and having normal bowel movements. Denies drug allergies. No other concerns or complaints. Denies any prolonged immobilization, distance travel, recent surgery/trauma, personal cancer history, hormone use, smoking, or previous DVT/PE. Denies any headache, fever, neck pain, URI, sore throat, chest pain, palpitations, syncope, abdominal pain, nausea/diarrhea, urinary retention, dysuria, hematuria, back pain, or rash. - Related Data Allergies/Adverse Reactions: peanut Allergy (Verified 01/14/19 17:57) Past Medical History - General Information source: Patient - Social History Smoking Status: Former Smoker Frequency of alcohol use: None Family History: CAD, COPD, DM, Hypertension, Malignancy Patient has suicidal ideation: No Patient has homicidal ideation: No - Past Medical History Cardiac Medical History: Denies: Hx Coronary Artery Disease, Hx Hypertension Pulmonary Medical History: Reports: Hx Asthma, Hx Bronchitis, Hx COPD Denies: Hx Intubation, Hx Respiratory Failure, Hx Sleep Apnea Neurological Medical History: Denies: Hx Seizures Endocrine Medical History: Denies: Hx Diabetes Mellitus Type 1, Hx Diabetes Mellitus Type 2 Renal/ Medical History: Denies: Hx Peritoneal Dialysis GI Medical History: Denies: Hx Cirrhosis, Hx Hepatitis Musculoskeletal Medical History: Denies Hx Arthritis, Denies Hx Fibromyalgia, Reports Hx Musculoskeletal Trauma Skin Medical History: Denies Hx Eczema, Denies Hx Psoriasis Psychiatric Medical History: Reports: Hx Bipolar Disorder, Hx Depression - anxeity Traumatic Medical History: Reports: Hx Fractures Infectious Medical History: Denies: Hx Hepatitis Past Surgical History: Reports: Hx Section - X4, Other - Liver biopsy as a child - Immunizations Hx Diphtheria, Pertussis, Tetanus Vaccination: No Review of Systems - Review of Systems -: Yes All other systems reviewed and negative Physical Exam - Vital signs Vitals: Temp Pulse Resp BP Pulse Ox 98.8 F 110 H 24 H 138/88 H 96 03/04/19 14:27 03/04/19 14:27 03/04/19 14:27 03/04/19 14:27 03/04/19 14:27 - Notes Notes: PHYSICAL EXAMINATION: GENERAL: Well-appearing, well-nourished and in no acute distress. A&Ox4. Answers questions appropriately and speaks in complete sentences. HEAD: Atraumatic, normocephalic. EYES: Pupils equal round and reactive to light, extraocular movements intact, sclera anicteric, conjunctiva are normal. ENT: Nares patent and without discharge. oropharynx clear without exudates. No tonsilar hypertrophy or erythema. Moist mucous membranes. NECK: Normal range of motion, supple without lymphadenopathy LUNGS: Breath sounds clear to auscultation bilaterally and equal. No wheezes rales or rhonchi. HEART: Regular rate and rhythm without murmurs, rubs, gallops. ABDOMEN: Soft, nontender, nondistended abdomen. No guarding, no rebound. Normal bowel sounds present. No CVA tenderness bilaterally. Musculoskeletal: FROM to passive/active. Strength 5+/5. Cash neg. No asymmetry to LE's. Extremities: No cyanosis, clubbing, or edema b/l. Peripheral pulses 2+. Capillary refill less than 3 seconds. NEUROLOGICAL: Normal speech, normal gait. PSYCH: Normal mood, normal affect. SKIN: Warm, Dry, normal turgor, no rashes or lesions noted. Course - Re-evaluation Re-evalutation: 03/04/19 16:52 Patient is an afebrile, well-hydrated, 33-year-old female who presents with acute URI and asthma exacerbation. Vitals are currently acceptable. PE is otherwise unremarkable. Patient is nontoxic-appearing and is tolerating p.o. without difficulty. Lungs are now clear to auscultation bilaterally. Patient did receive fluids, Solu-Medrol, DuoNeb x2. Patient states that she is feeling much better. Chest x-ray unremarkable. No further work-up warranted. Low suspicion for any ACS, PE, pneumothorax, pericarditis, dissection, respiratory compromise, severe dehydration, sepsis, meningitis, or other systemic emergent condition at this time. Patient is aware that her condition can change from initial presentation and she needs to monitor symptoms closely and seek medical attention for any acute changes. Patient was given a dispensed albuterol inhaler. I will send her home with a prescription for Nebules as well. R ecommend conservative measures for symptoms. Recheck with your PCM in 2-3 days. Return to the ED with any worsening/concerning symptoms otherwise as reviewed in discharge. Patient is in agreement. - Vital Signs Vital signs: Temp Pulse Resp BP Pulse Ox 100.0 F 112 H 17 134/72 H 100 03/04/19 16:52 03/04/19 16:52 03/04/19 16:52 03/04/19 16:52 03/04/19 16:52 Discharge - Discharge Clinical Impression: Acute URI Asthma exacerbation Qualifiers: Asthma severity: mild Asthma persistence: intermittent Qualified Code(s): J45.21 - Mild intermittent asthma with (acute) exacerbation Condition: Stable Disposition: HOME, SELF-CARE Instructions: Asthma ([facility]), Upper Respiratory Illness ([facility]) Additional Instructions: Maintain adequate fluid intake tylenol/ibuprofen as needed alternating every 3 hours for fever/body ache over the counter cold medication as needed for symptoms Humidified air may help Wash your hands regularly Wear a mask when coughing F/u: with your PCM in 2-3 days for a recheck Return to the ED with any fever, altered mental status/behavior, chest pain, palpitations, syncope, headache, neck pain/stiffness, shortness of breath, chest pains, wheezing, drooling, trouble swallowing/breathing, abdominal pain, n/v/d, rash, or worsening/concerning symptoms otherwise. Prescriptions: Albuterol Sulfate [Ventolin 0.083% Neb 2.5 mg/3 mL Ampul] 2.5 mg NEB QID PRN 30 Days #30 unit PRN Reason: Forms: Elevated Blood Pressure, Return to Work Referrals: BRADLEY BRAY MD [ACTIVE STAFF] - Follow up as needed
[2019-03-04 17:03] VITALS: BP 134/72
[2019-03-04] MEDS ORDERED: IBUPROFEN 800 MG TABLET PO ONE (17:09)
== END 2019-03-04 17:47 | disposition home or self-care (01) ==
LOC: ER 14:20
DX: J06.9 Acute upper respiratory infection, unspecified (principal); J45.21 Mild intermittent asthma with (acute) exacerbation; Z91.010 Allergy to peanuts
CPT/HCPCS: 71045; J2930; J7030; J3490; J7620

== ENCOUNTER 2019-03-07 10:39 | Emergency (ER) | payer SELFPAY ==
[2019-03-07] MEDS ORDERED: METHYLPREDNISOLONE INJ 125 MG/2 ML SDV IV ONE (11:06)
[2019-03-07] MEDS ORDERED: IPRATROPIUM/ALBUTEROL 0.5-2.5 MG/3 ML AMPUL NEB ONE (11:06)
--- NOTE | 2019-03-07 11:11 | ER Document Report ---
ED Medical Screen (RME) - General Chief Complaint: Shortness Of Breath Stated Complaint: SHORT OF BREATH, CHEST PAIN Time Seen by Provider: 03/07/19 11:02 Notes: 33-year-old female with asthma presents the emergency department with an acute asthma exacerbation. Patient is in moderate respiratory distress at this time. Patient was seen here 4 days ago and treated and discharged. Patient states symptoms started yesterday and she tried to take an albuterol nebulizer last night and her inhaler this morning with no relief. Patient is not able to speak in full sentences. Exam: Inspiratory and expiratory wheezing in all zambrano, reduced air exchange I have greeted and performed a rapid initial assessment of this patient. A comprehensive ED assessment and evaluation of the patient, analysis of test results and completion of medical decision making process will be conducted by an additional ED providers. TRAVEL OUTSIDE OF THE [place] IN LAST 30 DAYS: No - Related Data Allergies/Adverse Reactions: peanut Allergy (Verified 03/07/19 10:51) Home Medications: latuda Past Medical History - Social History Chew tobacco use (# tins/day): No Frequency of alcohol use: None Drug Abuse: None - Past Medical History Cardiac Medical History: Denies: Hx Coronary Artery Disease, Hx Hypertension Pulmonary Medical History: Reports: Hx Asthma, Hx Bronchitis, Hx COPD Denies: Hx Intubation, Hx Respiratory Failure, Hx Sleep Apnea Neurological Medical History: Denies: Hx Seizures Endocrine Medical History: Denies: Hx Diabetes Mellitus Type 1, Hx Diabetes Mellitus Type 2 Renal/ Medical History: Denies: Hx Peritoneal Dialysis GI Medical History: Denies: Hx Cirrhosis, Hx Hepatitis Musculoskeltal Medical History: Denies Hx Arthritis, Denies Hx Fibromyalgia, Reports Hx Musculoskeletal Trauma Skin Medical History: Denies Hx Eczema, Denies Hx Psoriasis Psychiatric Medical History: Reports: Hx Bipolar Disorder, Hx Depression - anxeity Traumatic Medical History: Reports: Hx Fractures Infectious Medical History: Denies: Hx Hepatitis Past Surgical History: Reports: Hx Section - X4, Other - Liver biopsy as a child - Immunizations Hx Diphtheria, Pertussis, Tetanus Vaccination: No Physical Exam - Vital signs Vitals: Temp Pulse Resp BP Pulse Ox 98.0 F 112 H 32 H 148/81 H 93 03/07/19 10:48 03/07/19 10:48 03/07/19 10:48 03/07/19 10:48 03/07/19 10:48 Course - Vital Signs Vital signs: Temp Pulse Resp BP Pulse Ox 98.0 F 112 H 32 H 148/81 H 93 03/07/19 10:48 03/07/19 10:48 03/07/19 10:48 03/07/19 10:48 03/07/19 10:48
[2019-03-07] MEDS: MAGNESIUM SULFATE/D5W 1 GM/100 ML RTUPB IV SCH ×2 (11:30→12:49)
[2019-03-07] MEDS ORDERED: PREDNISONE 20 MG TABLET PO ONE (11:43)
[2019-03-07] MEDS ORDERED: MAGNESIUM SULFATE/D5W 1 GM/100 ML RTUPB IV ONE (11:44)
[2019-03-07] MEDS ORDERED: ALBUTEROL SULFATE 0.083% NEB 2.5 MG/3 ML AMPUL NEB ONE ×2 (11:44→13:26)
[2019-03-07] MEDS ORDERED: NORMAL SALINE 1000 ML 1,000 ML IV ONE (11:44)
--- NOTE | 2019-03-07 11:49 | EKG REPORT ---
SEVERITY:- OTHERWISE NORMAL ECG - SINUS TACHYCARDIA : Confirmed by: Emma Miranda MD 07-Mar-2019 11:48:18
[2019-03-07 11:52] LABS: ABSOLUTE EOSINOPHILS # (AUTO) 0.3 10^3/uL (0.0-0.6); ABSOLUTE LYMPHOCYTES (AUTO) 1.4 10^3/uL (0.5-4.7); ABSOLUTE MONOCYTES (AUTO) 0.7 10^3/uL (0.1-1.4); ABSOLUTE NEUT (AUTO) 5.6 10^3/uL (1.7-8.2); BASOPHILS % (AUTO) 0.4 % (0-2); EOSINOPHILS % (AUTO) 4.3 % (0-6); HEMATOCRIT 33.7 % (36.0-47.0); HEMOGLOBIN 11.2 g/dL (12.0-15.5); LYMPHOCYTES % (AUTO) 17.5 % (13-45); MEAN CORPUSCULAR HEMOGLOBIN 27.1 pg (27.0-33.4); MEAN CORPUSCULAR VOLUME 82 fl (80-97); MONOCYTES % (AUTO) 8.4 % (3-13); PLATELET COUNT 359 10^3/uL (150-450); RED BLOOD COUNT 4.12 10^6/uL (3.72-5.28); RED CELL DISTRIBUTION WIDTH 18.9 % (11.5-14.0); SEGMENTED NEUTROPHILS % (AUTO) 69.4 % (42-78); TOTAL CELLS COUNTED % (AUTO) 100 %
[2019-03-07 12:11] LABS: ALBUMIN 4.5 g/dL (3.5-5.0); ALKALINE PHOSPHATASE 58 U/L (38-126); ANION GAP 10 (5-19); ASPARTATE AMINO TRANSFERASE 25 U/L (14-36); BILIRUBIN,TOTAL 0.7 mg/dL (0.2-1.3); BLOOD UREA NITROGEN 8 mg/dL (7-20); CALCIUM 9.7 mg/dL (8.4-10.2); CARBON DIOXIDE 27 mmol/L (22-30); CHLORIDE 103 mmol/L (98-107); GLUCOSE 88 mg/dL (75-110); TOTAL PROTEIN 7.7 g/dL (6.3-8.2)
--- NOTE | 2019-03-07 12:26 | RADIOLOGY REPORT (SQ) ---
EXAM DESCRIPTION: CHEST SINGLE VIEW COMPLETED DATE/TIME: 03/07/2019 12:12 pm REASON FOR STUDY: shortness of breath COMPARISON: CT angio chest 01/14/2019 Chest films 03/04/2019, 01/18/2018 EXAM PARAMETERS: NUMBER OF VIEWS: One view. TECHNIQUE: Single frontal radiographic view of the chest acquired. RADIATION DOSE: NA LIMITATIONS: None. FINDINGS: LUNGS AND PLEURA: No opacities, masses or pneumothorax. No pleural effusion. MEDIASTINUM AND HILAR STRUCTURES: No masses. Contour normal. HEART AND VASCULAR STRUCTURES: Heart normal in size. Normal vasculature. BONES: No acute findings. HARDWARE: None in the chest. OTHER: No other significant finding. IMPRESSION: NO ACUTE RADIOGRAPHIC FINDING IN THE CHEST. TECHNICAL DOCUMENTATION: JOB ID: [id number] [employer]- All Rights Reserved Reading location - IP/workstation name: [email or web address]
--- NOTE | 2019-03-07 13:25 | ER Document Report ---
Entered by RIYA YOUNG SCRIBE 03/07/19 1145 Acting as scribe for:BIANCA JULIO MD ED Respiratory Problem - General Chief Complaint: Shortness Of Breath Stated Complaint: SHORT OF BREATH, CHEST PAIN Time Seen by Provider: 03/07/19 11:02 Information source: Patient Notes: 33-year-old female with asthma presents to the emergency department today for complaints of asthma exacerbation. Patient was just seen here on 03/04 for asthma exacerbation. At that time the patient was given Solu-Medrol but was not sent home on prednisone. She was given an albuterol dispense inhaler which she has almost emptied. She also received a prescription for albuterol solution for her nebulizer. Patient states she has had a slight cough bringing up clear sputum. Patient denies any fevers. Pertinent PMHx/PSHx: Asthma, continues to smoke. PCP: none TRAVEL OUTSIDE OF THE [place] IN LAST 30 DAYS: No - Related Data Allergies/Adverse Reactions: peanut Allergy (Verified 03/07/19 10:51) Home Medications: latuda Past Medical History - General Information source: Patient - Social History Smoking Status: Current Some Day Smoker Cigarette use (# per day): Yes Chew tobacco use (# tins/day): No Frequency of alcohol use: None Drug Abuse: None Lives with: Family Family History: CAD, COPD, DM, Hypertension, Malignancy Patient has suicidal ideation: No Patient has homicidal ideation: No Pulmonary Medical History: Reports: Hx Asthma, Hx Bronchitis, Hx COPD Musculoskeletal Medical History: Reports Hx Musculoskeletal Trauma Psychiatric Medical History: Reports: Hx Bipolar Disorder, Hx Depression - anxeity Traumatic Medical History: Reports: Hx Fractures Past Surgical History: Reports: Hx Section - X4, Other - Liver biopsy as a child - Immunizations Hx Diphtheria, Pertussis, Tetanus Vaccination: No Review of Systems - Review of Systems Constitutional: denies: Fever EENT: No symptoms reported Cardiovascular: No symptoms reported Respiratory: See HPI, Cough, Short of breath, Wheezing Gastrointestinal: No symptoms reported Genitourinary: No symptoms reported Female Genitourinary: No symptoms reported Musculoskeletal: No symptoms reported Skin: No symptoms reported Hematologic/Lymphatic: No symptoms reported Neurological/Psychological: No symptoms reported -: Yes All other systems reviewed and negative Physical Exam - Vital signs Vitals: Temp Pulse Resp BP Pulse Ox 98.0 F 112 H 32 H 148/81 H 93 03/07/19 10:48 03/07/19 10:48 03/07/19 10:48 03/07/19 10:48 03/07/19 10:48 - Notes Notes: Physical Exam: General: Alert, appears well. HEENT: Normocephalic. Atraumatic. PERRL. Extraocular movements intact. Oropharynx clear. Hoarse sounding voice. Nasal congestion. Neck: Supple. Non-tender. Respiratory: Mild respiratory distress. Getting breathing treatment. Wheezing and rhonchi bilaterally. Cardiovascular: Regular rate and rhythm. Abdominal: Normal Inspection. Non-tender. No distension. Normal Bowel Sounds. Back: No gross abnormalities. Extremities: Moves all four extremities. Upper extremities: Normal inspection. Normal ROM. Lower extremities: Normal inspection. No edema. Normal ROM. Neurological: Normal cognition. AAOx4. Normal speech. Psychological: Normal affect. Normal Mood. Skin: Warm. Dry. Normal color. Course - Vital Signs Vital signs: Temp Pulse Resp BP Pulse Ox 98.0 F 112 H 39 H 143/86 H 91 L 03/07/19 10:48 03/07/19 10:48 03/07/19 12:01 03/07/19 12:01 03/07/19 12:01 - Laboratory Result Diagrams: 03/07/19 11:30 03/07/19 11:30 Laboratory results interpreted by me: 03/07/19 11:30 Hgb 11.2 L Hct 33.7 L RDW 18.9 H Discharge - Discharge Clinical Impression: Viral upper respiratory tract infection with cough Asthma exacerbation Qualifiers: Asthma severity: moderate Asthma persistence: persistent Qualified Code(s): J45.41 - Moderate persistent asthma with (acute) exacerbation Condition: Stable Disposition: HOME, SELF-CARE Additional Instructions: Upper Respiratory Illness You have a viral infection of the respiratory passages -- a "cold." This common infection causes nasal congestion, drainage, and often sore throat and cough. It is caused by a virus and is highly contagious. The disease usually lasts a week or more, though the worst symptoms are usually over in 3 or 4 days. There is no "cure" for the viral infection -- it must run its course. If there is a complication, such as bacterial infection in the nose, sinuses, middle ear, or bronchial tubes, antibiotics may be required, but antibiotics won't affect the virus. If you smoke, you should STOP!! Drink plenty of fluids. A humidifier may help. An expectorant medication or decongestant may make you more comfortable. Use acetaminophen or ibuprofen for fever or aches. See the doctor if fever persists over two or three days, if there is any significant worsening of your symptoms, or if you simply fail to improve as expected. Bronchitis with Bronchospasm (Wheezing) You have bronchitis with bronchospasm (wheezing). Sometimes people develop wheezing with a chest cold. This occurs either because of an underlying tendency toward asthma or because the virus itself irritates the bronchial tubes. This irritation causes cough, shortness of breath, and wheezing. Emergency treatment of bronchospasm may include adrenaline shots or bronchodilator aerosol. You may feel lightheaded and have a rapid pulse for an hour or two. Rest and get plenty of fluids. At home, we'll treat you with a bronchodilator inhaler. Corticosteroids may be required for some patients. Until you recover, avoid chemical fumes, dusts, pollens, and exercising in very cold or dry air. If you smoke, stop now! Most cases of bronchitis get better without antibiotics. We prescribe antibiotics when we believe bacteria are damaging your airways, or if there's high risk the bronchitis will worsen into pneumonia. Increase your fluid intake. A cool mist humidifier may make your lungs more comfortable. An expectorant (cough medicine that loosens phlegm) can help. Repeated episodes of bronchitis and bronchospasm may result in lung damage -- for example, chronic bronchitis, recurrent pneumonias, or emphysema. If you develop a fever, increased wheezing, chest pain, or severe shortness of breath, you should contact the doctor immediately. Start the prednisone tomorrow. You are given today's dose here in the emergency room. Use your nebulizer every 2-4 hours for wheezing as needed. Drink plenty of fluids throughout the day in the evening. Take Tylenol for fever if needed. Stop smoking. Follow-up with your primary care provider if not improving. RETURN TO THE EMERGENCY ROOM IF ANY NEW OR WORSENING SYMPTOMS. Prescriptions: Prednisone [Deltasone 20 mg Tablet] 20 mg PO BID #10 tablet Albuterol Sulfate [Ventolin 0.083% Neb 2.5 mg/3 mL Ampul] 1 vial NEB Q4 PRN #50 vial PRN Reason: wheezing Scribe Attestation: 03/07/19 13:27 I personally performed the services described in the documentation, reviewed and edited the documentation which was dictated to the scribe in my presence, and it accurately records my words and actions. I personally performed the services described in the documentation, reviewed and edited the documentation which was dictated to the scribe in my presence, and it accurately records my words and actions.
[2019-03-07] MEDS ORDERED: ACETAMINOPHEN 325 MG TABLET PO ONE (13:26)
[2019-03-07] MEDS ORDERED: ALBUTEROL SULFATE HFA (90 MCG/PUFF) 8 GM MDI (1 MDI/ER DISP) IH ONE (13:27)
[2019-03-07] MEDS ORDERED: ACETAMINOPHEN 325 MG TABLET ONE (13:40)
[2019-03-07 13:55] LABS: APPEARANCE,URINE SLIGHTLY-CLOUDY; BILIRUBIN,URINE NEGATIVE (NEGATIVE); COLOR,URINE YELLOW; GLUCOSE, URINE 50 mg/dL (NEGATIVE); KETONES,URINE NEGATIVE (NEGATIVE); LEUKOCYTE ESTERASE,URINE NEGATIVE (NEGATIVE); NITRITE,URINE NEGATIVE (NEGATIVE); PROTEIN,URINE NEGATIVE (NEGATIVE); URINE SPECIFIC GRAVITY 1.005; UROBILINOGEN,URINE NEGATIVE mg/dL (<2.0)
[2019-03-07 14:35] VITALS: BP 161/91
== END 2019-03-07 14:46 | disposition home or self-care (01) ==
LOC: ER 10:39
DX: J06.9 Acute upper respiratory infection, unspecified (principal); B97.89 Other viral agents as the cause of diseases classified elsewhere; J45.41 Moderate persistent asthma with (acute) exacerbation; J44.9 Chronic obstructive pulmonary disease, unspecified; R06.02 Shortness of breath; R07.9 Chest pain, unspecified
CPT/HCPCS: 93005; 94640 ×2; 99285; 96375; 96365; 96366; 36415; 85025; 81025; 80053; 81001; 71045; 93010; J2930; J3475; J7512; J7030; J3490; J7620

== ENCOUNTER 2019-08-17 11:09 | Emergency (ER) | payer SELFPAY ==
[2019-08-17 11:17] VITALS: BP 160/85
--- NOTE | 2019-08-17 11:31 | ER Document Report ---
ED Medical Screen (RME) - General Chief Complaint: Pelvic Pain Stated Complaint: LOWER ABDOMINAL PAIN/VAGINAL PAIN Time Seen by Provider: 08/17/19 11:23 Mode of Arrival: Ambulatory Information source: Patient Notes: Patient is a 34-year-old female presenting to the emergency department chief complaint of vaginal swelling and pelvic pain over the last 3 days. She also reports an abnormal vaginal discharge, states that is a yellow color. She denies any fever, nausea, vomiting, dysuria or urinary frequency. Abdomen soft, mildly tender across the low very low abdomen/suprapubic area. I have greeted and performed a rapid initial assessment of this patient. A comprehensive ED assessment and evaluation of the patient, analysis of test results and completion of the medical decision making process will be conducted by additional ED providers. I have specifically instructed the patient or family members with the patient to immediately return to any nursing staff should anything change in the patient's condition or with their chief complaint. TRAVEL OUTSIDE OF THE [place] IN LAST 30 DAYS: No - Related Data Allergies/Adverse Reactions: peanut Allergy (Verified 03/07/19 10:51) Past Medical History - Past Medical History Cardiac Medical History: Denies: Hx Coronary Artery Disease, Hx Hypertension Pulmonary Medical History: Reports: Hx Asthma, Hx Bronchitis, Hx COPD Denies: Hx Intubation, Hx Respiratory Failure, Hx Sleep Apnea Neurological Medical History: Denies: Hx Seizures Endocrine Medical History: Denies: Hx Diabetes Mellitus Type 1, Hx Diabetes Mellitus Type 2 Renal/ Medical History: Denies: Hx Peritoneal Dialysis GI Medical History: Denies: Hx Cirrhosis, Hx Hepatitis Musculoskeltal Medical History: Denies Hx Arthritis, Denies Hx Fibromyalgia, Reports Hx Musculoskeletal Trauma Skin Medical History: Denies Hx Eczema, Denies Hx Psoriasis Psychiatric Medical History: Reports: Hx Bipolar Disorder, Hx Depression - anxeity Traumatic Medical History: Reports: Hx Fractures Infectious Medical History: Denies: Hx Hepatitis Past Surgical History: Reports: Hx Section - X4, Other - Liver biopsy as a child - Immunizations Hx Diphtheria, Pertussis, Tetanus Vaccination: No Physical Exam - Vital signs Vitals: Temp Pulse Resp BP Pulse Ox 97.9 F 94 18 160/85 H 100 08/17/19 11:15 08/17/19 11:15 08/17/19 11:15 08/17/19 11:15 08/17/19 11:15 Course - Vital Signs Vital signs: Temp Pulse Resp BP Pulse Ox 97.9 F 94 18 160/85 H 100 08/17/19 11:23 08/17/19 11:15 08/17/19 11:15 08/17/19 11:15 08/17/19 11:15
[2019-08-17 11:58] LABS: APPEARANCE,URINE SLIGHTLY-CLOUDY; BILIRUBIN,URINE NEGATIVE (NEGATIVE); COLOR,URINE YELLOW; GLUCOSE, URINE 50 mg/dL (NEGATIVE); KETONES,URINE NEGATIVE (NEGATIVE); LEUKOCYTE ESTERASE,URINE LARGE (NEGATIVE); NITRITE,URINE NEGATIVE (NEGATIVE); PROTEIN,URINE NEGATIVE (NEGATIVE); URINE SPECIFIC GRAVITY 1.011; UROBILINOGEN,URINE NEGATIVE mg/dL (<2.0)
[2019-08-17 12:13] LABS: ABSOLUTE EOSINOPHILS # (AUTO) 0.2 10^3/uL (0.0-0.6); ABSOLUTE LYMPHOCYTES (AUTO) 1.5 10^3/uL (0.5-4.7); ABSOLUTE MONOCYTES (AUTO) 0.4 10^3/uL (0.1-1.4); ABSOLUTE NEUT (AUTO) 3.3 10^3/uL (1.7-8.2); BASOPHILS % (AUTO) 0.8 % (0-2); EOSINOPHILS % (AUTO) 3.2 % (0-6); HEMATOCRIT 33.5 % (36.0-47.0); HEMOGLOBIN 11.3 g/dL (12.0-15.5); LYMPHOCYTES % (AUTO) 28.4 % (13-45); MEAN CORPUSCULAR HEMOGLOBIN 27.6 pg (27.0-33.4); MEAN CORPUSCULAR HGB CONC 33.7 g/dL (32.0-36.0); MEAN CORPUSCULAR VOLUME 82 fl (80-97); MONOCYTES % (AUTO) 7.5 % (3-13); PLATELET COUNT 371 10^3/uL (150-450); RED BLOOD COUNT 4.09 10^6/uL (3.72-5.28); RED CELL DISTRIBUTION WIDTH 17.8 % (11.5-14.0); SEGMENTED NEUTROPHILS % (AUTO) 60.1 % (42-78); TOTAL CELLS COUNTED % (AUTO) 100 %; WHITE BLOOD COUNT 5.5 10^3/uL (4.0-10.5)
[2019-08-17 12:30] LABS: ALBUMIN 4.4 g/dL (3.5-5.0); ALKALINE PHOSPHATASE 63 U/L (38-126); ANION GAP 7 (5-19); ASPARTATE AMINO TRANSFERASE 30 U/L (14-36); BILIRUBIN,TOTAL 0.4 mg/dL (0.2-1.3); BLOOD UREA NITROGEN 13 mg/dL (7-20); CALCIUM 9.8 mg/dL (8.4-10.2); CARBON DIOXIDE 27 mmol/L (22-30); CHLORIDE 104 mmol/L (98-107); POTASSIUM 3.8 mmol/L (3.6-5.0); TOTAL PROTEIN 7.6 g/dL (6.3-8.2)
[2019-08-17 12:34] LABS: GLUCOSE 63 mg/dL (75-110)
[2019-08-17 12:54] LABS: BACTERIA (WET MOUNT) 3+ BACTERIA SEEN; EPITHELIALS (WET MOUNT) 4+ EPITHELIALS SEEN; RBCS (WET MOUNT) 4+ RBCS SEEN; T.VAGINALIS (WET MOUNT) NO TRICHOMONAS SEEN; WBCS (WET MOUNT) 3+ WBCS SEEN; YEAST (WET MOUNT) NO YEAST SEEN
--- NOTE | 2019-08-17 12:55 | ER Document Report ---
ED GI/ - General Chief Complaint: Pelvic Pain Stated Complaint: LOWER ABDOMINAL PAIN/VAGINAL PAIN Time Seen by Provider: 08/17/19 11:23 Mode of Arrival: Ambulatory Notes: HPI: Patient is a 34-year-old female who presents today with 3 days of pelvic/vaginal pain. She states that she believes her vagina is "swollen". She does state some yellowish vaginal discharge. She denies any dysuria, fever, abdominal pain, flank pain, vomiting, or diarrhea. No new sexual partners for the last 2 months. Patient states she is 3 days past her normal period and she is concerned that maybe she is . ROS: See HPI All other review of systems reviewed and otherwise negative Reviewed vital signs and nursing note as charted by RN. PHYSICAL EXAM: CONSTITUTIONAL: Alert and oriented and responds appropriately to questions. Well-appearing; well-nourished HEAD: Normocephalic; atraumatic EYES: PERRL; Conjunctivae clear, sclerae non-icteric ENT: No intraoral lesions present NECK: Supple without meningismus; non-tender; no cervical lymphadenopathy, no masses CARD: Regular rate and rhythm; no murmurs; symmetric distal pulses RESP: Normal chest excursion without splinting or tachypnea; breath sounds clear and equal bilaterally ABD/GI: Normal bowel sounds; non-distended; soft, no focal tenderness to deep palpation of all 4 quadrants of the abdomen GI/: Patient has no obvious vaginal lesions. Some whitish discharge with some mixed blood in the vaginal vault. Cervical office is closed with no cervical motion tenderness or adnexal masses or tenderness BACK: The back appears normal and is non-tender to palpation EXT: Normal ROM in all joints; non-tender to palpation; no edema SKIN: No acute lesions noted NEURO: CN 2-12 intact; 5/5 bilateral upper and lower extremity strength with sensation intact to light touch PSYCH: The patient's mood and manner are appropriate. Grooming and personal h ygiene are appropriate. TRAVEL OUTSIDE OF THE [place] IN LAST 30 DAYS: No - Related Data Allergies/Adverse Reactions: peanut Allergy (Verified 03/07/19 10:51) Past Medical History - General Information source: Patient - Social History Smoking Status: Former Smoker Family History: CAD, COPD, DM, Hypertension, Malignancy Patient has suicidal ideation: No Patient has homicidal ideation: No - Past Medical History Cardiac Medical History: Denies: Hx Coronary Artery Disease, Hx Hypertension Pulmonary Medical History: Reports: Hx Asthma, Hx Bronchitis, Hx COPD Denies: Hx Intubation, Hx Respiratory Failure, Hx Sleep Apnea Neurological Medical History: Denies: Hx Seizures Endocrine Medical History: Denies: Hx Diabetes Mellitus Type 1, Hx Diabetes Mellitus Type 2 Renal/ Medical History: Denies: Hx Peritoneal Dialysis GI Medical History: Denies: Hx Cirrhosis, Hx Hepatitis Musculoskeletal Medical History: Denies Hx Arthritis, Denies Hx Fibromyalgia, Reports Hx Musculoskeletal Trauma Skin Medical History: Denies Hx Eczema, Denies Hx Psoriasis Psychiatric Medical History: Reports: Hx Bipolar Disorder, Hx Depression - anxeity Traumatic Medical History: Reports: Hx Fractures Infectious Medical History: Denies: Hx Hepatitis Past Surgical History: Reports: Hx Section - X4, Other - Liver biopsy as a child - Immunizations Hx Diphtheria, Pertussis, Tetanus Vaccination: No Physical Exam - Vital signs Vitals: Temp Pulse Resp BP Pulse Ox 97.9 F 94 18 160/85 H 100 08/17/19 11:15 08/17/19 11:15 08/17/19 11:15 08/17/19 11:15 08/17/19 11:15 Course - Re-evaluation Re-evalutation: Given the above history and physical we did order basic labs, test which is negative, and did perform a pelvic examination. Patient denies any and all fevers, abdominal pain, flank pain, or dysuria. I would like to check for the possibility of an STD. No cervical motion tenderness or adnexal masses or tenderness present. 08/17/19 12:57 Labs and urine analysis as recorded. Pelvic exam labs as recorded. I will treat the patient for bacterial vaginosis as well as the possibility of urinary tract infection with urine culture pending. GC/chlamydia is pending at time of disposition. Patient still has no abdominal pain. - Vital Signs Vital signs: Temp Pulse Resp BP Pulse Ox 97.9 F 94 18 160/85 H 100 08/17/19 11:23 08/17/19 11:15 08/17/19 11:15 08/17/19 11:15 08/17/19 11:15 - Laboratory Result Diagrams: 08/17/19 12:03 08/17/19 12:03 Laboratory results interpreted by me: 08/17/19 08/17/19 08/17/19 11:40 12:03 12:03 Hgb 11.3 L Hct 33.5 L RDW 17.8 H Glucose 63 L Urine Glucose (UA) 50 H Ur Leukocyte Esterase LARGE H Discharge - Discharge Clinical Impression: Vaginal discharge Condition: Good Disposition: HOME, SELF-CARE Prescriptions: Metronidazole [Flagyl 500 mg Tablet] 500 mg PO Q12 #14 tablet Cephalexin Monohydrate [Keflex 500 mg Capsule] 500 mg PO Q8H 7 Days #21 capsule
[2019-08-17] MEDS ORDERED: CEPHALEXIN 500 MG CAPSULE PO ONE (12:57)
[2019-08-17] MEDS ORDERED: METRONIDAZOLE 500 MG TABLET PO ONE (13:02)
[2019-08-17 14:21] LABS: CHLAM PCR NOT DETECTED (NOT DETECT)
== END 2019-08-17 13:23 | disposition home or self-care (01) ==
LOC: ER 11:09
DX: N89.8 Other specified noninflammatory disorders of vagina (principal); R10.2 Pelvic and perineal pain; R10.30 Lower abdominal pain, unspecified
CPT/HCPCS: 36415; 80053; 81001; 81025; 82962; 85025; 87086; 87088; 87210; 87491; 87591; 99283

== ENCOUNTER 2019-09-05 14:26 | Emergency (ER) | payer OTHER ==
[2019-09-05 15:26] VITALS: BP 148/84
--- NOTE | 2019-09-05 15:30 | ER Document Report ---
ED Foreign Body - General Chief Complaint: Foreign Body in Ear Stated Complaint: QTIP STUCK IN LEFT EAR Time Seen by Provider: 09/05/19 15:25 Primary Care Provider: ADEBAYO MOYER MD [ACTIVE STAFF] - Follow up as needed Notes: 34-year-old female presented to ED for complaint of a end of a cotton ball Q-tip in her ear. It was embedded in the left ear. She states her daughter tried to get it out but she just pushed it further into the ear. Is alert oriented respirations regular nonlabored speaking in full sentences. TRAVEL OUTSIDE OF THE [place] IN LAST 30 DAYS: No - HPI Location of foreign body: Other - Left ear Onset: This afternoon Onset/Duration: Sudden Quality of pain: Pressure Severity: Moderate Pain Level: 2 Context: Self-inflicted Associated symptoms: None Exacerbated by: Denies Relieved by: Denies Similar symptoms previously: Yes Recently seen / treated by doctor: No - Related Data Allergies/Adverse Reactions: peanut Allergy (Verified 09/05/19 15:15) Past Medical History - General Information source: Patient - Social History Smoking Status: Former Smoker Chew tobacco use (# tins/day): No Frequency of alcohol use: None Drug Abuse: None Lives with: Family Family History: CAD, COPD, DM, Hypertension, Malignancy Patient has homicidal ideation: No - Past Medical History Cardiac Medical History: Reports: None Pulmonary Medical History: Reports: Hx Asthma, Hx Bronchitis, Hx COPD EENT Medical History: Reports: None Neurological Medical History: Reports: None Endocrine Medical History: Reports: None. Denies: Hx Diabetes Mellitus Type 1, Hx Diabetes Mellitus Type 2 Renal/ Medical History: Reports: None Malignancy Medical History: Reports: None GI Medical History: Reports: None Musculoskeletal Medical History: Reports Hx Musculoskeletal Trauma Skin Medical History: Reports None Psychiatric Medical History: Reports: Hx Bipolar Disorder, Hx Depression - anxe ity Traumatic Medical History: Reports: Hx Fractures Past Surgical History: Reports: Hx Section - X4, Other - Liver biopsy as a child - Immunizations Hx Diphtheria, Pertussis, Tetanus Vaccination: No Review of Systems - Review of Systems Constitutional: No symptoms reported EENT: Ear pain - Cotton ball in the left ear canal Cardiovascular: No symptoms reported Respiratory: No symptoms reported Gastrointestinal: No symptoms reported Genitourinary: No symptoms reported Female Genitourinary: No symptoms reported Musculoskeletal: No symptoms reported Skin: No symptoms reported Hematologic/Lymphatic: No symptoms reported Neurological/Psychological: No symptoms reported -: Yes All other systems reviewed and negative Physical Exam - Vital signs Vitals: Temp Pulse Resp BP Pulse Ox 97.9 F 90 20 148/84 H 99 09/05/19 14:30 09/05/19 14:30 09/05/19 14:30 09/05/19 14:30 09/05/19 14:30 Interpretation: Normal - General General appearance: Appears well, Alert - HEENT Head: Normocephalic, Atraumatic Eyes: Normal Pupils: PERRL Ears: Normal External canal: Foreign body - Cotton ball off of a Q-tip Tympanic membrane: Normal Sinus: Normal Nasal: Normal Mouth/Lips: Normal Mucous membranes: Normal Pharynx: Normal Neck: Normal - Respiratory Respiratory status: No respiratory distress Chest status: Nontender Breath sounds: Normal Chest palpation: Normal - Cardiovascular Rhythm: Regular Heart sounds: Normal auscultation Murmur: No - Abdominal Inspection: Normal Distension: No distension Bowel sounds: Normal Tenderness: Nontender Organomegaly: No organomegaly - Back Back: Normal, Nontender - Extremities General upper extremity: Normal inspection, Nontender, Normal color, Normal ROM, Normal temperature General lower extremity: Normal inspection, Nontender, Normal color, Normal ROM, Normal temperature, Normal weight bearing. No: Cash's sign - Neurological Neuro grossly intact: Yes Cognition: Normal Orientation: AAOx4 Antonio Coma Scale Eye Opening: Spontaneous [place] Coma Scale Verbal: Oriented Antonio Coma Scale Motor: Obeys Commands [place] Coma Scale Total: 15 Speech: Normal Motor strength normal: LUE, RUE, LLE, RLE Sensory: Normal - Psychological Associated symptoms: Normal affect, Normal mood - Skin Skin Temperature: Warm Skin Moisture: Dry Skin Color: Normal Course - Re-evaluation Re-evalutation: 09/05/19 15:39 Q-tip cotton ball removed with a ear curette and then a hemostat. Patient tolerated well. Patient was given instructions on Tylenol Motrin and follow-up with ENT. Patient verbalized understanding and agreement with treatment plan patient was discharged home. - Vital Signs Vital signs: Temp Pulse Resp BP Pulse Ox 97.9 F 90 20 148/84 H 99 09/05/19 15:15 09/05/19 14:30 09/05/19 14:30 09/05/19 14:30 09/05/19 14:30 Discharge - Discharge Clinical Impression: Cottonball removed from left ear Condition: Stable Disposition: HOME, SELF-CARE Additional Instructions: Foreign Object in the Ear Examination showed a foreign object in the ear. This can cause pain, swelling, infection, and decreased hearing. An ear foreign body should be removed promptly. Usually no further treatment is necessary following removal. If infection is already present, we prescribe antibiotic drops. Sometimes the object damages the eardrum. If hearing is not normal, or if an obvious injury was seen, another checkup is necessary. If there is continued drainage, continued earache, fever, headache, or hearing loss, come back for reexamination. Acetaminophen Acetaminophen may be taken for pain relief or fever control. It's much safer than aspirin, offering a wider range of "safe" dosages. It is safe during . Some brand names are Tylenol, Panadol, Datril, Anacin 3, Tempra, and Liquiprin. Acetaminophen can be repeated every four hours. The following are maximum recommended dosages: WEIGHT Dose Drops Elixir Chewable(80mg) (LBS.) drprs=droppers tsp=teaspoon 6 40 mg .4 ml (1/2) 6-11 80 mg .8 ml (full) 1/2 tsp 1 tab 12-16 120 mg 1 1/2 drprs 3/4 tsp 1 1/2 tabs 17-23 160 mg 2 drprs 1 tsp 2 tabs 24-30 240 mg 3 drprs 1 1/2 tsp 3 tabs 30-35 320 mg 2 tsp 4 tabs 36-41 360 mg 2 1/4 tsp 4 1/2 tabs 42-47 400 mg 2 1/2 tsp 5 tabs 48-53 480 mg 3 tsp 6 tabs 54-59 520 mg 3 1/4 tsp 6 1/2 tabs 60-64 560 mg 3 1/2 tsp 7 tabs 65-70 600 mg 3 3/4 tsp 7 1/2 tabs 71-76 640 mg 4 tsp 8 tabs 77-82 720 mg 4 1/2 tsp 9 tabs 83-88 800 mg 5 tsp 10 tabs >89 pounds or adults 650 mg to 900 mg Acetaminophen can be repeated every four hours. Maximum daily dose not to exceed 4000 mg. These maximum recommended dosages are slightly higher than the dosages written on the product container, but these dosages are very safe and well below the toxic dosage for acetaminophen. FOLLOW-UP CARE: If you have been referred to a physician for follow-up care, call the physicians office for an appointment as you were instructed or within the next two days. If you experience worsening or a significant change in your symptoms, notify the physician immediately or return to the Emergency Department at any time for re-evaluation. Forms: Elevated Blood Pressure, Smoking Cessation Education Referrals: ADEBAYO MOYER MD [ACTIVE STAFF] - Follow up as needed
== END 2019-09-05 15:28 | disposition home or self-care (01) ==
LOC: ER 14:26
DX: T16.2XXA Foreign body in left ear, initial encounter (principal); Z88.8 Allergy status to other drugs, medicaments and biological substances; Z87.891 Personal history of nicotine dependence; J44.9 Chronic obstructive pulmonary disease, unspecified
CPT/HCPCS: 99282

== ENCOUNTER 2020-01-24 10:41 | Emergency (ER) | payer OTHER ==
[2020-01-24] MEDS ORDERED: ALBUTEROL SULFATE 0.083% NEB 2.5 MG/3 ML AMPUL NEB ONE (11:51)
--- NOTE | 2020-01-24 11:52 | ER Document Report ---
ED Medical Screen (RME) - General Chief Complaint: Mouth Problem Stated Complaint: MOUTH/GUM PAIN, FACIAL SWELLING Time Seen by Provider: 01/24/20 11:46 Mode of Arrival: Ambulatory Information source: Patient Notes: 34-year-old female presented to ED for complaint of very short of breath. She states she was cleaning with some solutions yesterday. She states she went to to rescue inhaler yesterday and now she has some pain in the right upper jaw and face. She does have minimal gingivitis on the right upper gum but she is short of breath she is expiratory wheezing. She states the wheezing and shortness of breath started yesterday. She states she did do some cleaning solutions. She does have a history of asthma and COPD. She does not have any medications for her nebulizer. She is a former smoker does not drink or do any illicit drugs and has a history of C-sections. I have greeted and performed a rapid initial assessment of this patient. A comprehensive ED assessment and evaluation of the patient, analysis of test results and completion of medical decision making process will be conducted by an additional ED providers. TRAVEL OUTSIDE OF THE [place] IN LAST 30 DAYS: No - Related Data Allergies/Adverse Reactions: peanut Allergy (Verified 09/05/19 15:15) Past Medical History - Past Medical History Cardiac Medical History: Denies: Hx Coronary Artery Disease, Hx Hypertension Pulmonary Medical History: Reports: Hx Asthma, Hx Bronchitis, Hx COPD Denies: Hx Intubation, Hx Respiratory Failure, Hx Sleep Apnea Neurological Medical History: Denies: Hx Seizures Endocrine Medical History: Denies: Hx Diabetes Mellitus Type 1, Hx Diabetes Mellitus Type 2 Renal/ Medical History: Denies: Hx Peritoneal Dialysis GI Medical History: Denies: Hx Cirrhosis, Hx Hepatitis Musculoskeltal Medical History: Denies Hx Arthritis, Denies Hx Fibromyalgia, Reports Hx Musculoskeletal Trauma Skin Medical History: Denies Hx Eczema, Denies Hx Psoriasis Psychiatric Medical History: Reports: Hx Bipolar Disorder, Hx Depression - anxeity Traumatic Medical History: Reports: Hx Fractures Infectious Medical History: Denies: Hx Hepatitis Past Surgical History: Reports: Hx Section - X4, Other - Liver biopsy as a child - Immunizations Hx Diphtheria, Pertussis, Tetanus Vaccination: No Physical Exam - Vital signs Vitals: Temp Pulse Resp BP Pulse Ox 99.1 F 96 16 141/87 H 98 01/24/20 10:52 01/24/20 10:52 01/24/20 10:52 01/24/20 10:52 01/24/20 10:52 Course - Vital Signs Vital signs: Temp Pulse Resp BP Pulse Ox 99.1 F 96 16 141/87 H 98 01/24/20 10:52 01/24/20 10:52 01/24/20 10:52 01/24/20 10:52 01/24/20 10:52
[2020-01-24 12:19] LABS: ABSOLUTE BASOPHILS # (AUTO) 0.1 10^3/uL (0.0-0.2); ABSOLUTE EOSINOPHILS # (AUTO) 0.2 10^3/uL (0.0-0.6); ABSOLUTE LYMPHOCYTES (AUTO) 1.8 10^3/uL (0.5-4.7); ABSOLUTE MONOCYTES (AUTO) 0.6 10^3/uL (0.1-1.4); ABSOLUTE NEUT (AUTO) 4.4 10^3/uL (1.7-8.2); BASOPHILS % (AUTO) 0.9 % (0-2); EOSINOPHILS % (AUTO) 2.8 % (0-6); HEMATOCRIT 32.4 % (36.0-47.0); HEMOGLOBIN 10.6 g/dL (12.0-15.5); LYMPHOCYTES % (AUTO) 25.5 % (13-45); MEAN CORPUSCULAR HEMOGLOBIN 25.8 pg (27.0-33.4); MEAN CORPUSCULAR HGB CONC 32.6 g/dL (32.0-36.0); MEAN CORPUSCULAR VOLUME 79 fl (80-97); MONOCYTES % (AUTO) 8.1 % (3-13); PLATELET COUNT 404 10^3/uL (150-450); RED BLOOD COUNT 4.09 10^6/uL (3.72-5.28); RED CELL DISTRIBUTION WIDTH 17.8 % (11.5-14.0); SEGMENTED NEUTROPHILS % (AUTO) 62.7 % (42-78); TOTAL CELLS COUNTED % (AUTO) 100 %
[2020-01-24 12:26] LABS: APPEARANCE,URINE CLOUDY; BILIRUBIN,URINE NEGATIVE (NEGATIVE); COLOR,URINE YELLOW; GLUCOSE, URINE NEGATIVE (NEGATIVE); KETONES,URINE NEGATIVE (NEGATIVE); LEUKOCYTE ESTERASE,URINE MODERATE (NEGATIVE); NITRITE,URINE NEGATIVE (NEGATIVE); PROTEIN,URINE NEGATIVE (NEGATIVE); URINE SPECIFIC GRAVITY 1.009; UROBILINOGEN,URINE NEGATIVE mg/dL (<2.0)
[2020-01-24 12:36] LABS: ALBUMIN 4.6 g/dL (3.5-5.0); ALKALINE PHOSPHATASE 68 U/L (38-126); ANION GAP 9 (5-19); ASPARTATE AMINO TRANSFERASE 33 U/L (14-36); BILIRUBIN,DIRECT 0.2 mg/dL (0.0-0.4); BILIRUBIN,TOTAL 0.5 mg/dL (0.2-1.3); BLOOD UREA NITROGEN 10 mg/dL (7-20); CALCIUM 9.6 mg/dL (8.4-10.2); CARBON DIOXIDE 23 mmol/L (22-30); CHLORIDE 107 mmol/L (98-107); GLUCOSE 90 mg/dL (75-110); POTASSIUM 4.1 mmol/L (3.6-5.0); TOTAL PROTEIN 7.7 g/dL (6.3-8.2)
--- NOTE | 2020-01-24 13:15 | ER Document Report ---
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 She denies any chest pain, fever, calf pain or leg swelling. She ran out of her albuterol inhaler and nebulizer solution. Patient also states 5 days ago she had a "tooth filling" fall out of her left upper posterior molar teeth region. She states she said some facial swelling without fevers or vomiting. No difficulty swallowing. She states she does have a dentist. She denies allergies to antibiotics. She states she was last admitted for asthma around 1 year ago. This was the last time she received steroids as well. Patient states she has never been intubated. ROS: See HPI All other review of systems reviewed and otherwise negative Reviewed vital signs and nursing note as charted by RN. PHYSICAL EXAM: CONSTITUTIONAL: Alert and oriented and responds appropriately to questions. Well-appearing; well-nourished HEAD: Normocephalic; atraumatic EYES: PERRL; Conjunctivae clear, sclerae non-icteric ENT: Patient has some minimal tenderness to the left maxillary sinus region with no fluctuance, erythema, or induration. Patient does have a missing filling to the left upper posterior molar with no intraoral lesions. No posterior pharyngeal erythema or swelling NECK: Supple without meningismus; non-tender; no cervical lymphadenopathy, no masses CARD: Regular rate and rhythm; no murmurs; symmetric distal pulses RESP: Normal chest excursion without splinting or tachypnea; breath sounds clear and equal bilaterally; no wheezing or stridor on my examination. No rhonchi. Patient has already received a nebulizer ABD/GI: Normal bowel sounds; non-distended; soft, non-tender BACK: The back appears normal and is non-tender to palpation EXT: Normal ROM in all joints; non-tender to palpation; no edema SKIN: No acute lesions noted NEURO: CN 2-12 intact PSYCH: The patient's mood and manner are appropriate. Grooming and personal hygiene are appropriate. TRAVEL OUTSIDE OF THE [place] IN LAST 30 DAYS: No - Related Data Allergies/Adverse Reactions: peanut Allergy (Verified 01/24/20 12:15) Past Medical History - General Information source: Patient - Social History Smoking Status: Former Smoker Family History: CAD, COPD, DM, Hypertension, Malignancy - Past Medical History Cardiac Medical History: Denies: Hx Coronary Artery Disease, Hx Hypertension Pulmonary Medical History: Reports: Hx Asthma, Hx Bronchitis, Hx COPD Denies: Hx Intubation, Hx Respiratory Failure, Hx Sleep Apnea Neurological Medical History: Denies: Hx Seizures Endocrine Medical History: Denies: Hx Diabetes Mellitus Type 1, Hx Diabetes Mellitus Type 2 Renal/ Medical History: Denies: Hx Peritoneal Dialysis GI Medical History: Denies: Hx Cirrhosis, Hx Hepatitis Musculoskeletal Medical History: Denies Hx Arthritis, Denies Hx Fibromyalgia, Reports Hx Musculoskeletal Trauma Skin Medical History: Denies Hx Eczema, Denies Hx Psoriasis Psychiatric Medical History: Reports: Hx Bipolar Disorder, Hx Depression - anxeity Traumatic Medical History: Reports: Hx Fractures Infectious Medical History: Denies: Hx Hepatitis Past Surgical History: Reports: Hx Section - X4, Other - Liver biopsy as a child - Immunizations Hx Diphtheria, Pertussis, Tetanus Vaccination: No Physical Exam - Vital signs Vitals: Temp Pulse Resp BP Pulse Ox 99.1 F 96 16 141/87 H 98 01/24/20 10:52 01/24/20 10:52 01/24/20 10:52 01/24/20 10:52 01/24/20 10:52 Course - Re-evaluation Re-evalutation: Given the above history and physical examination, an x-ray of the chest and the nebulizers were performed. I believe blood work was ordered in triage. I would like to assess for the possibility of pneumonia, pneumothorax, or obvious lung pathology. Patient has no wheezing on repeat examination after the nebulizer has been performed. I do not believe imaging of the face is necessary at this moment. 01/24/20 13:14 - Vital Signs Vital signs: Temp Pulse Resp BP Pulse Ox 99.1 F 96 16 141/87 H 98 01/24/20 10:52 01/24/20 10:52 01/24/20 10:52 01/24/20 10:52 01/24/20 10:52 - Laboratory Result Diagrams: 01/24/20 12:00 01/24/20 12:00 Laboratory results interpreted by me: 01/24/20 01/24/20 11:50 12:00 Hgb 10.6 L Hct 32.4 L MCV 79 L MCH 25.8 L RDW 17.8 H Ur Leukocyte Esterase MODERATE H Discharge - Discharge Clinical Impression: Wheezing, Dental infection Condition: Good Disposition: HOME, SELF-CARE Additional Instructions: Please take 2 puffs of the albuterol inhaler every 4 hours for the next 48 hours and every 6 hours as needed after that. Please make sure that you follow-up with your primary care physician for reassessment as well as your dentist for further evaluation of your dental infection. Please take the antibiotics as prescribed. Come back immediately for any increased facial swelling, fever, difficulty breathing or swallowing, chest pain, leg swelling, or any other acute problems. Prescriptions: Hydrocodone/Acetaminophen [[place] 5-325 mg Tablet] 1 tab PO Q8 #10 tablet Penicillin V Potassium [Penicillin Vk 500 mg Tablet] 500 mg PO BID #20 tablet Albuterol Sulfate [Ventolin 0.083% Neb 2.5 mg/3 ml Ampul] 1 vial NEB Q6 PRN #30 vial PRN Reason: Referrals: ELOISE PONCE DO [Primary Care Provider] - Follow up as needed
[2020-01-24] MEDS ORDERED: PENICILLIN V POTASSIUM 500 MG TABLET PO ONE (13:16)
[2020-01-24] MEDS ORDERED: DEXAMETHASONE 4 MG TABLET PO ONE (13:17)
--- NOTE | 2020-01-24 13:18 | RADIOLOGY REPORT (SQ) ---
EXAM DESCRIPTION: CHEST 2 VIEWS IMAGES COMPLETED DATE/TIME: 01/24/2020 12:03 pm REASON FOR STUDY: Cough congestion short of breath history COPD COMPARISON: 03/07/2019 EXAM PARAMETERS: NUMBER OF VIEWS: two views TECHNIQUE: Digital Frontal and Lateral radiographic views of the chest acquired. RADIATION DOSE: NA LIMITATIONS: none FINDINGS: LUNGS AND PLEURA: No opacities, masses or pneumothorax. No pleural effusion. MEDIASTINUM AND HILAR STRUCTURES: No masses or contour abnormalities. HEART AND VASCULAR STRUCTURES: Heart normal size. No evidence for failure. BONES: No acute findings. HARDWARE: None in the chest. OTHER: No other significant finding. IMPRESSION: NO ACUTE RADIOGRAPHIC FINDING IN THE CHEST. TECHNICAL DOCUMENTATION: JOB ID: [id number] [email or web address] All Rights Reserved Reading location - IP/workstation name: [email or web address]
[2020-01-24] MEDS ORDERED: ALBUTEROL SULFATE HFA (90 MCG/PUFF) 8 GM MDI (1 MDI/ER DISP) IH PRN (13:23)
[2020-01-24 13:49] VITALS: BP 146/89
== END 2020-01-24 13:54 | disposition home or self-care (01) ==
LOC: ER 10:41
DX: R06.2 Wheezing (principal); K04.7 Periapical abscess without sinus; R06.02 Shortness of breath; R22.0 Localized swelling, mass and lump, head
CPT/HCPCS: 99284; 36415; 87086; 84703; 85025; 80053; 81001; 71046; J8540; J7613; J3490

== ENCOUNTER 2020-01-26 08:06 | Emergency (ER) | payer OTHER ==
--- NOTE | 2020-01-26 10:05 | ER Document Report ---
ED General - General Chief Complaint: Facial Swelling Stated Complaint: FACIAL ABSCESS/SWELLING Time Seen by Provider: 01/26/20 09:44 Primary Care Provider: ELOISE PONCE DO [Primary Care Provider] - Follow up as needed Mode of Arrival: Ambulatory Information source: Patient TRAVEL OUTSIDE OF THE [place] IN LAST 30 DAYS: No - HPI Notes: Patient presents with left-sided facial swelling. She states that a filling fell out approximately 5 to 6 days ago. After that time she started to have some pain in this area and was seen here in the emergency department. She states she was given a dose of antibiotics and sent home on antibiotics. She states she has been taking the antibiotics but her face continues to swell and she continues to have pain. The pain is moderate to severe. Is constant. Is worse with eating and better with rest. It does radiate to the left side of her face. No trouble swallowing or breathing. - Related Data Allergies/Adverse Reactions: peanut Allergy (Verified 01/26/20 09:45) Past Medical History - General Information source: Patient - Social History Smoking Status: Current Some Day Smoker Frequency of alcohol use: None Drug Abuse: None Family History: CAD, COPD, DM, Hypertension, Malignancy - Past Medical History Cardiac Medical History: Denies: Hx Coronary Artery Disease, Hx Hypertension Pulmonary Medical History: Reports: Hx Asthma, Hx Bronchitis, Hx COPD Denies: Hx Intubation, Hx Respiratory Failure, Hx Sleep Apnea Neurological Medical History: Denies: Hx Seizures Endocrine Medical History: Denies: Hx Diabetes Mellitus Type 1, Hx Diabetes Mellitus Type 2 Renal/ Medical History: Denies: Hx Peritoneal Dialysis GI Medical History: Denies: Hx Cirrhosis, Hx Hepatitis Musculoskeletal Medical History: Denies Hx Arthritis, Denies Hx Fibromyalgia, Reports Hx Musculoskeletal Trauma Skin Medical History: Denies Hx Eczema, Denies Hx Psoriasis Psychiatric Medical History: Reports: Hx Bipolar Disorder, Hx Depression - anxeity Traumatic Medical History: Reports: Hx Fractures Infectious Medical History: Denies: Hx Hepatitis Past Surgical History: Reports: Hx Section - X4, Other - Liver biopsy as a child - Immunizations Hx Diphtheria, Pertussis, Tetanus Vaccination: No Review of Systems - Review of Systems Constitutional: denies: Chills, Fever Cardiovascular: denies: Chest pain, Palpitations Gastrointestinal: denies: Diarrhea, Vomiting -: Yes All other systems reviewed and negative Physical Exam - Vital signs Vitals: Temp Pulse Resp BP Pulse Ox 98.7 F 98 16 142/93 H 99 01/26/20 08:09 01/26/20 08:09 01/26/20 08:09 01/26/20 08:09 01/26/20 08:09 Interpretation: Normal - General General appearance: Appears well, Alert - HEENT Head: Other - She got tenderness and swelling over the left maxillary area Eyes: Normal Pupils: PERRL Mouth/Lips: Other - Patient has a tender raised area of her gum adjacent to the left upper first molar. Mucous membranes: Moist Pharynx: Normal Neck: Normal - Respiratory Respiratory status: No respiratory distress Chest status: Nontender Breath sounds: Normal Chest palpation: Normal - Cardiovascular Rhythm: Regular Heart sounds: Normal auscultation Murmur: No - Abdominal Inspection: Normal Distension: No distension Bowel sounds: Normal Tenderness: Nontender Organomegaly: No organomegaly - Back Back: Normal, Nontender - Extremities General upper extremity: Normal inspection, Nontender, Normal color, Normal ROM, Normal temperature General lower extremity: Normal inspection, Nontender, Normal color, Normal ROM, Normal temperature, Normal weight bearing. No: Cash's sign - Neurological Neuro grossly intact: Yes Cognition: Normal Orientation: AAOx4 Antonio Coma Scale Eye Opening: Spontaneous [place] Coma Scale Verbal: Oriented Antonio Coma Scale Motor: Obeys Commands Antonio Coma Scale Total: 15 Speech: Normal Motor strength normal: LUE, RUE, LLE, RLE Sensory: Normal - Psychological Associated symptoms: Normal affect, Normal mood - Skin Skin Temperature: Warm Skin Moisture: Dry Skin Color: Normal Course - Vital Signs Vital signs: Temp Pulse Resp BP Pulse Ox 98.7 F 98 16 142/93 H 99 01/26/20 08:09 01/26/20 08:09 01/26/20 08:09 01/26/20 08:09 01/26/20 08:09 Discharge - Discharge Clinical Impression: Dental abscess Condition: Stable Disposition: HOME, SELF-CARE Additional Instructions: Please go straight to Dr. Fang's office Forms: Return to Work Referrals: CAMI FANG MD [ACTIVE STAFF] - 01/26/20 10:30 am
[2020-01-26 10:53] VITALS: BP 138/88
== END 2020-01-26 10:49 | disposition home or self-care (01) ==
LOC: ER 08:06
DX: K04.7 Periapical abscess without sinus (principal); J44.9 Chronic obstructive pulmonary disease, unspecified; F17.200 Nicotine dependence, unspecified, uncomplicated; Z91.010 Allergy to peanuts
CPT/HCPCS: 99282

== ENCOUNTER 2020-02-16 10:31 | Emergency (ER) | payer OTHER ==
[2020-02-16 10:47] VITALS: BP 132/85
[2020-02-16] MEDS ORDERED: PREDNISONE 20 MG TABLET PO ONE (12:01)
--- NOTE | 2020-02-16 12:02 | ER Document Report ---
ED Respiratory Problem - General Chief Complaint: Shortness Of Breath Stated Complaint: ASTHMA/SHORTNESS OF BREATH/COUGH Time Seen by Provider: 02/16/20 11:43 Primary Care Provider: ELOISE PONCE DO [Primary Care Provider] - Follow up as needed Notes: CHIEF COMPLAINT: Cough for 5 days HPI: 34-year-old female with asthma history presenting for cough for 5 days believe she is having an asthma exacerbation no fever. Has been using her inhalers at home did not call her PCP prior to coming in today as both of her children are sick and she brought them for evaluation as well ROS: See HPI - all other systems were reviewed and are otherwise negative Constitutional: no fever Eyes: no drainage, no blurred vision ENT: no runny nose, no sore throat Cardiovascular: no chest pain Resp: no SOB, + cough GI: no vomiting, no diarrhea, no abdominal pain : no dysuria Integumentary: no rash Allergy: no hives Musculoskeletal: no extremity pain or swelling Neurological: no numbness/tingling, no weakness MEDICATIONS: I agree with the patient medications as charted by the RN. ALLERGIES: I agree with the allergies as charted by the RN. PAST MEDICAL HISTORY/PAST SURGICAL HISTORY: Reviewed and agree as charted by RN. SOCIAL HISTORY: Reviewed and agree as charted by RN. FAMILY HISTORY: No significant familial comorbid conditions directly related to patient complaint EXAM: Reviewed vital signs as charted by RN. CONSTITUTIONAL: Alert and oriented and responds appropriately to questions. Well-appearing; well-nourished HEAD: Normocephalic; atraumatic EYES: PERRL; Conjunctivae clear, sclerae non-icteric ENT: normal nose; no rhinorrhea; moist mucous membranes; pharynx without lesions noted, no uvula edema or deviation, no tonsillar hypertrophy, phonation normal NECK: Supple without meningismus; non-tender; no cervical lymphadenopathy, no masses CARD: Mild tachycardia but patient just use your inhaler; no murmurs, no clicks, no rubs, no gallops; symmetric distal pulses RESP: Normal chest excursion without splinting or tachypnea; breath sounds with very slight expiratory wheeze, no rhonchi, no rales, pulse oximetry 100% room air not hypoxic ABD/GI: Normal bowel sounds; non-distended; soft, non-tender, no rebound, no guarding; no palpable organomegaly or masses. BACK: The back appears normal and is non-tender to palpation, there is no CVA tenderness EXT: Normal ROM in all joints; non-tender to palpation; no cyanosis, no effusions, no edema SKIN: Normal color for age and race; warm; dry; good turgor; no acute lesions noted NEURO: Moves all extremities equally; Motor and sensory function intact PSYCH: The patient's mood and manner are appropriate. Grooming and personal hygiene are appropriate. MDM: 34-year-old female with asthma history presenting with cough for for 5 days. Slight wheezing noted. Will start on steroids, she has albuterol inhaler already. All of her children are also sick. She has not had fever does not believe she has pneumonia declines Covid test TRAVEL OUTSIDE OF THE [place] IN LAST 30 DAYS: No - Related Data Allergies/Adverse Reactions: peanut Allergy (Verified 02/16/20 12:04) Past Medical History - Social History Smoking Status: Unknown if Ever Smoked Family History: CAD, COPD, DM, Hypertension, Malignancy - Past Medical History Cardiac Medical History: Denies: Hx Coronary Artery Disease, Hx Hypertension Pulmonary Medical History: Reports: Hx Asthma, Hx Bronchitis, Hx COPD Denies: Hx Intubation, Hx Respiratory Failure, Hx Sleep Apnea Neurological Medical History: Denies: Hx Seizures Endocrine Medical History: Denies: Hx Diabetes Mellitus Type 1, Hx Diabetes Mellitus Type 2 Renal/ Medical History: Denies: Hx Peritoneal Dialysis GI Medical History: Denies: Hx Cirrhosis, Hx Hepatitis Musculoskeletal Medical History: Denies Hx Arthritis, Denies Hx Fibromyalgia, Reports Hx Musculoskeletal Trauma Skin Medical History: Denies Hx Eczema, Denies Hx Psoriasis Psychiatric Medical History: Reports: Hx Bipolar Disorder, Hx Depression - anxeity Traumatic Medical History: Reports: Hx Fractures Infectious Medical History: Denies: Hx Hepatitis Past Surgical History: Reports: Hx Section - X4, Other - Liver biopsy as a child - Immunizations Hx Diphtheria, Pertussis, Tetanus Vaccination: No Physical Exam - Vital signs Vitals: Temp Pulse Resp BP Pulse Ox 98.7 F 117 H 16 132/85 H 97 02/16/20 10:46 02/16/20 10:46 02/16/20 10:46 02/16/20 10:46 02/16/20 10:46 Course - Vital Signs Vital signs: Temp Pulse Resp BP Pulse Ox 98.7 F 117 H 16 132/85 H 97 02/16/20 10:46 02/16/20 10:46 02/16/20 10:46 02/16/20 10:46 02/16/20 10:46 Discharge - Discharge Clinical Impression: Exacerbation of asthma Qualifiers: Asthma severity: mild Asthma persistence: intermittent Qualified Code(s): J45.21 - Mild intermittent asthma with (acute) exacerbation Condition: Stable Disposition: HOME, SELF-CARE Additional Instructions: Continue albuterol inhaler 2 puffs every 4 hours as needed for cough or shortness of breath. Follow-up with your primary care provider for reevaluation of symptoms call for appointment. Take the prednisone as prescribed Prescriptions: Prednisone [Deltasone 20 mg Tablet] 2 tab PO DAILY 5 Days #10 tablet Referrals: ELOISE PONCE DO [Primary Care Provider] - Follow up as needed
== END 2020-02-16 12:30 | disposition home or self-care (01) ==
LOC: ER 10:31
DX: J45.21 Mild intermittent asthma with (acute) exacerbation (principal); Z91.010 Allergy to peanuts
CPT/HCPCS: 99283; J7512

== ENCOUNTER 2020-03-20 20:01 | Emergency (ER) | payer OTHER ==
[2020-03-20 20:12] VITALS: BP 174/99
[2020-03-20] MEDS ORDERED: METHYLPREDNISOLONE INJ 125 MG/2 ML SDV IM ONE (20:40)
[2020-03-20] MEDS ORDERED: ALBUTEROL SULFATE HFA (90 MCG/PUFF) 8 GM MDI (1 MDI/ER DISP) IH ONE (20:41)
--- NOTE | 2020-03-20 20:44 | ER Document Report ---
ED Medical Screen (RME) - General Chief Complaint: Shortness Of Breath Stated Complaint: SHORTNESS OF BREATH/COUGH Time Seen by Provider: 03/20/20 20:34 Primary Care Provider: ELOISE PONCE DO [Primary Care Provider] - Follow up as needed Mode of Arrival: Wheelchair Information source: Patient Notes: 34-year-old female presented to ED for severe shortness of breath all week. She states she does have asthma and COPD. She states she is on albuterol and Symbicort because she could not afford the Symbicort and she ran out of the inhaler around noon today. She is struggling to breathe. She is audibly wheezing and has very diminished breath sounds. States she stopped smoking about 8 months ago. We will give her Solu-Medrol IM as well as albuterol inhaler. I have placed orders and requested a room immediately for this patient from the charge nurse. I have greeted and performed a rapid initial assessment of this patient. A comprehensive ED assessment and evaluation of the patient, analysis of test results and completion of medical decision making process will be conducted by an additional ED providers. TRAVEL OUTSIDE OF THE [place] IN LAST 30 DAYS: No - Related Data Allergies/Adverse Reactions: peanut Allergy (Verified 02/16/20 12:04) Past Medical History - Past Medical History Cardiac Medical History: Denies: Hx Coronary Artery Disease, Hx Hypertension Pulmonary Medical History: Reports: Hx Asthma, Hx Bronchitis, Hx COPD Denies: Hx Intubation, Hx Respiratory Failure, Hx Sleep Apnea Neurological Medical History: Denies: Hx Seizures Endocrine Medical History: Denies: Hx Diabetes Mellitus Type 1, Hx Diabetes Mellitus Type 2 Renal/ Medical History: Denies: Hx Peritoneal Dialysis GI Medical History: Denies: Hx Cirrhosis, Hx Hepatitis Musculoskeltal Medical History: Denies Hx Arthritis, Denies Hx Fibromyalgia, Reports Hx Musculoskeletal Trauma Skin Medical History: Denies Hx Eczema, Denies Hx Psoriasis Psychiatric Medical History: Reports: Hx Bipolar Disorder, Hx Depression - anxeity Traumatic Medical History: Reports: Hx Fractures Infectious Medical History: Denies: Hx Hepatitis Past Surgical History: Reports: Hx Section - X4, Other - Liver biopsy as a child - Immunizations Hx Diphtheria, Pertussis, Tetanus Vaccination: No Physical Exam - Vital signs Vitals: Temp Pulse Resp BP Pulse Ox 98.2 F 108 H 24 H 174/99 H 96 03/20/20 20:10 03/20/20 20:10 03/20/20 20:10 03/20/20 20:10 03/20/20 20:10 Course - Vital Signs Vital signs: Temp Pulse Resp BP Pulse Ox 98.2 F 108 H 24 H 174/99 H 96 03/20/20 20:10 03/20/20 20:10 03/20/20 20:10 03/20/20 20:10 03/20/20 20:10 Doctor's Discharge - Discharge Referrals: ELOISE PONCE DO [Primary Care Provider] - Follow up as needed
[2020-03-20 21:50] LABS: A TYPE INFLUENZA AG NEGATIVE (NEGATIVE); B INFLUENZA AG NEGATIVE (NEGATIVE)
[2020-03-20 21:58] LABS: ABSOLUTE BASOPHILS # (AUTO) 0.1 10^3/uL (0.0-0.2); ABSOLUTE EOSINOPHILS # (AUTO) 0.7 10^3/uL (0.0-0.6); ABSOLUTE LYMPHOCYTES (AUTO) 2.4 10^3/uL (0.5-4.7); ABSOLUTE MONOCYTES (AUTO) 0.6 10^3/uL (0.1-1.4); ABSOLUTE NEUT (AUTO) 3.6 10^3/uL (1.7-8.2); BASOPHILS % (AUTO) 1.1 % (0-2); EOSINOPHILS % (AUTO) 9.1 % (0-6); HEMATOCRIT 30.8 % (36.0-47.0); LYMPHOCYTES % (AUTO) 32.6 % (13-45); MEAN CORPUSCULAR HEMOGLOBIN 25.3 pg (27.0-33.4); MEAN CORPUSCULAR HGB CONC 32.5 g/dL (32.0-36.0); MEAN CORPUSCULAR VOLUME 78 fl (80-97); MONOCYTES % (AUTO) 8.3 % (3-13); PLATELET COUNT 397 10^3/uL (150-450); RED BLOOD COUNT 3.96 10^6/uL (3.72-5.28); RED CELL DISTRIBUTION WIDTH 18.5 % (11.5-14.0); SEGMENTED NEUTROPHILS % (AUTO) 48.9 % (42-78); TOTAL CELLS COUNTED % (AUTO) 100 %; WHITE BLOOD COUNT 7.3 10^3/uL (4.0-10.5)
[2020-03-20] MEDS ORDERED: IPRATROPIUM/ALBUTEROL 0.5-2.5 MG/3 ML AMPUL NEB ONE (22:15)
--- NOTE | 2020-03-20 22:18 | ER Document Report ---
ED Respiratory Problem - General Chief Complaint: Shortness Of Breath Stated Complaint: SHORTNESS OF BREATH/COUGH Time Seen by Provider: 03/20/20 20:34 Primary Care Provider: ELOISE PONCE DO [Primary Care Provider] - Follow up in 3-5 days Mode of Arrival: Wheelchair Notes: Patient is a 30-year-old female that comes emergency department for chief complaint of wheezing, cough, shortness of breath worsening over the past week but severely worse today. She has a history of asthma. She ran out of her albuterol earlier today and she will not be able to afford her Symbicort until her insurance kicks in on April 22. She denies fever/chills, sore throat, or any new sick symptoms. She states she stays congested, she states she is new to the area and has had worse asthma and congestion symptoms since she moved here. She stopped smoking about 8 months ago. She denies . Only other past medical history is anxiety/depression on Latuda. TRAVEL OUTSIDE OF THE [place] IN LAST 30 DAYS: No - Related Data Allergies/Adverse Reactions: peanut Allergy (Verified 02/16/20 12:04) Home Medications: Latuda, Trazadone, Albuterol Past Medical History - General Information source: Patient - Social History Smoking Status: Former Smoker Frequency of alcohol use: None Drug Abuse: None Lives with: Family Family History: CAD, COPD, DM, Hypertension, Malignancy Patient has homicidal ideation: No - Past Medical History Cardiac Medical History: Denies: Hx Coronary Artery Disease, Hx Hypertension Pulmonary Medical History: Reports: Hx Asthma, Hx Bronchitis, Hx COPD Denies: Hx Intubation, Hx Respiratory Failure, Hx Sleep Apnea Neurological Medical History: Denies: Hx Seizures Endocrine Medical History: Denies: Hx Diabetes Mellitus Type 1, Hx Diabetes Mellitus Type 2 Renal/ Medical History: Denies: Hx Peritoneal Dialysis GI Medical History: Denies: Hx Cirrhosis, Hx Hepatitis Musculoskeletal Medical History: Denies Hx Arthritis, Denies Hx Fibromyalgia, Reports Hx Musculoskeletal Trauma Skin Medical History: Denies Hx Eczema, Denies Hx Psoriasis Psychiatric Medical History: Reports: Hx Bipolar Disorder, Hx Depression - anxeity Traumatic Medical History: Reports: Hx Fractures Infectious Medical History: Denies: Hx Hepatitis Past Surgical History: Reports: Hx Section - X4, Other - Liver biopsy as a child - Immunizations Hx Diphtheria, Pertussis, Tetanus Vaccination: No Review of Systems - Review of Systems Constitutional: No symptoms reported EENT: See HPI Cardiovascular: No symptoms reported Respiratory: See HPI Gastrointestinal: No symptoms reported Genitourinary: No symptoms reported Female Genitourinary: No symptoms reported Musculoskeletal: No symptoms reported Skin: No symptoms reported Hematologic/Lymphatic: No symptoms reported Neurological/Psychological: No symptoms reported Physical Exam - Vital signs Vitals: Temp Pulse Resp BP Pulse Ox 98.2 F 108 H 24 H 174/99 H 96 03/20/20 20:10 03/20/20 20:10 03/20/20 20:10 03/20/20 20:10 03/20/20 20:10 - Notes Notes: GENERAL: Alert, interacts well. No acute distress. Smiling and well-appearing HEAD: Normocephalic, atraumatic. EYES: Pupils equal, round, and reactive to light. Extraocular movements intact. ENT: Oral mucosa moist, tongue midline. Oropharynx unremarkable. Airway patent. Mild nasal congestion, sinuses non-tender, ear canals unremarkable, TM's intact. NECK: Full range of motion. Supple. Trachea midline. No lymphadenopathy. LUNGS: Scattered expiratory wheezes, no rales or rhonchi, no tachypnea, labored breathing, or respiratory distress. HEART: Regular rate and rhythm. No murmur ABDOMEN: Soft, non-tender. Non-distended. EXTREMITIES: Moves all 4 extremities spontaneously. No edema, normal radial and dorsalis pedis pulses bilaterally. No cyanosis. BACK: no cervical, thoracic, lumbar midline tenderness. No saddle anesthesia, normal distal neurovascular exam. Moves all extremities in full range of motion. NEUROLOGICAL: Alert and oriented x3. Normal speech. Cranial nerves II through XII grossly intact. Strength 5/5 in all extremities. PSYCH: Normal affect, normal mood. SKIN: Warm, dry, normal turgor. No rashes or lesions noted. Course - Re-evaluation Re-evalutation: Patient with scattered expiratory wheezes, these completely resolved with DuoNeb treatments. No tachypnea, hypoxia, signs of distress. No fever. Chest x-ray reviewed and unremarkable. Remaining work-up from triage shows anemia but no other concerning findings. Strep and influenza are negative, COVID-19 from [facility] is pending. I discussed all details with patient at length. Patient with no symptoms on reevaluation and is requesting to leave. Patient will be treated with prednisone, spacer, albuterol, she states she will eat iron products for her anemia but hates taking iron, discussed COVID-19 test and quarantine, discussed return precautions. Patient states appreciation and agreement. - Vital Signs Vital signs: Temp Pulse Resp BP Pulse Ox 98.2 F 108 H 20 174/99 H 97 03/20/20 20:10 03/20/20 20:10 03/20/20 23:00 03/20/20 20:10 03/20/20 23:00 - Laboratory Result Diagrams: 03/20/20 21:42 03/20/20 21:42 Laboratory results interpreted by me: 03/20/20 03/20/20 21:42 21:42 Hgb 10.0 L Hct 30.8 L MCV 78 L MCH 25.3 L RDW 18.5 H Eos % (Auto) 9.1 H Absolute Eos (auto) 0.7 H Potassium 3.5 L AST 43 H Discharge - Discharge Clinical Impression: Wheezing, Person under investigation for COVID-19 Asthma exacerbation Qualifiers: Asthma severity: mild Asthma persistence: intermittent Qualified Code(s): J45.21 - Mild intermittent asthma with (acute) exacerbation Condition: Stable Disposition: HOME, SELF-CARE Instructions: COVID-19 Guidance for Persons Under Investigation Additional Instructions: Your chest x-ray is normal, your influenza and strep tests are negative. Your COVID-19 test is pending, you will be contacted with these results, please quarantine while you are waiting your test results, see additional instructions listed. Use the albuterol inhaler and your spacer, take the prednisone as prescribed to completion, I recommend an [id number] allergy medication such as cetirizine daily for your symptoms as well. Follow-up with primary care referral listed. Return if you worsen including spiking fever, difficulty breathing, or any other concerning or worsening symptoms. Prescriptions: Prednisone [Deltasone 20 mg Tablet] 3 tab PO DAILY 5 Days #15 tablet Albuterol Sulfate [Proair HFA Inhalation Aerosol 8.5 gm MDI] 2 puff IH Q4H PRN #1 mdi PRN Reason: Forms: Return to Work, Elevated Blood Pressure Referrals: ELOISE PONCE DO [Primary Care Provider] - Follow up in 3-5 days
[2020-03-20 22:25] LABS: ALBUMIN 4.5 g/dL (3.5-5.0); ALKALINE PHOSPHATASE 60 U/L (38-126); ANION GAP 6 (5-19); ASPARTATE AMINO TRANSFERASE 43 U/L (14-36); BILIRUBIN,DIRECT 0.2 mg/dL (0.0-0.4); BILIRUBIN,TOTAL 0.4 mg/dL (0.2-1.3); BLOOD UREA NITROGEN 11 mg/dL (7-20); CALCIUM 9.3 mg/dL (8.4-10.2); CARBON DIOXIDE 27 mmol/L (22-30); CHLORIDE 105 mmol/L (98-107); GLUCOSE 85 mg/dL (75-110); POTASSIUM 3.5 mmol/L (3.6-5.0); TOTAL PROTEIN 8.2 g/dL (6.3-8.2)
--- NOTE | 2020-03-20 22:30 | RADIOLOGY REPORT (SQ) ---
EXAM DESCRIPTION: CHEST SINGLE VIEW CLINICAL HISTORY: 34 years Female, cough congestion wheezing COMPARISON: Two views of the chest January 24, 2020 FINDINGS: Lungs: Lungs are clear. No pneumonia or edema. No pneumothorax or pleural effusion. Mediastinum: Cardiac and mediastinal silhouette are normal. Bones: Osseous structures are normal. IMPRESSION: No acute process. No significant interval change.
== END 2020-03-20 23:47 | disposition home or self-care (01) ==
LOC: ER 20:01
DX: J45.21 Mild intermittent asthma with (acute) exacerbation (principal); R06.02 Shortness of breath; R05 Cough; Z20.828 Contact with and (suspected) exposure to other viral communicable diseases
CPT/HCPCS: 94640; 99284; 96374; 36415; 87070; 87880; 84703; 85025; 87635; 80053; 87804; 71045; J2930; J3490; C9803; 87077